=== PATIENT | female | born 1940 | race Caucasian/White ===

== ENCOUNTER 2017-09-26 08:37 | Observation (INO) ==
[2017-09-26] MEDS ORDERED: SALINE FLUSH 10ml SYRINGE IVF PRN (08:53)
--- OUTSIDE RECORDS SUMMARY | 2017-09-26 09:03 | External Medical Summary | Referral Summary ---
:1940 Author Organization Via ALEJANDRA Diallo [facility] Address [address] [place] [address] YES[place]man [address] Care Team Providers Name Role Phone Doni Baltazar Primary Care Physician Encounter VC Date(s): 01/16/15 - 01/16/15 Via ALEJANDRA Diallo [address] [place] [phone] [place] Discharge Disposition: 01-Home or Self Care Attending Physician: Doni Baltazar MD Admitting Physician: Doni Baltazar MD Vital Signs Most recent to oldest [Reference Range]: 1 Blood Pressure [90-140/60-90 mmHg] 160/70 mmHg *HI* (01/16/15 8:30 AM) Problem List Condition Effective Dates Status Health Status Informant Hyperlipidemia(Confirmed) Active Hypertension(Confirmed) Active Menopausal symptoms(Confirmed) Active Neuropathy(Confirmed) Active Obesity(Confirmed) Active patient Allergies, Adverse Reactions, Alerts Substance Reaction Severity Status ammoniated mercury topical Active penicillin Unknown Active sulfanilamide topical Unknown Active Medications aspirin 81 mg, Oral, Daily, 0 Refill(s) Start Date: 01/15/14 Status: Orderedatenolol 25 mg oral tablet 25 mg 1 tabs, Oral, Daily, X 90 days, # 90 tabs, 3 Refill(s), Pharmacy: [facility], 1 tabs Oral Daily,x90 days Start Date: 01/16/15 Stop Date: 01/11/16 Status: OrderedCalcium 600+D 1 tabs, Oral, Daily, 0 Refill(s) Start Date: 01/15/14 Status: Orderedcranberry 1 tabs, Oral, Daily, 0 Refill(s) Start Date: 01/15/14 Status: Orderedestradiol 0.5 mg oral tablet 1 tabs, Oral, Daily, 0 Refill(s) Start Date: 01/15/14 Status: OrderedFish Oil 1000 mg oral capsule 1 caps, Oral, Daily, 0 Refill(s) Start Date: 01/15/14 Status: OrderedVitamin B-12 100 mcg, Oral, Daily, 0 Refill(s) Start Date: 01/15/14 Status: OrderedZocor 20 mg oral tablet 20 mg 1 tabs, Oral, Bedtime (once a day), X 90 days, # 90 tabs, 3 Refill(s), Pharmacy: [facility], 1 tabs Oral Bedtime (once a day),x90 days Start Date: 01/16/15 Stop Date: 01/11/16 Status: Ordered Results Hematology Most recent to oldest [Reference Range]: 1 WBC [4.8-10.8 10*3/uL] 6.4 10*3/uL (01/16/15 9:08 AM) RBC [4.00-5.20 10*6/uL] 4.30 10*6/uL (01/16/15 9:08 AM) Hgb [12.0-16.0 gm/dL] 12.5 gm/dL (01/16/15 9:08 AM) Hct [37.0-47.0 %] 37.5 % (01/16/15 9:08 AM) MCV [82.0-99.0 fL] 87.2 fL (01/16/15 9:08 AM) MCH [27.0-32.0 pg] 29.1 pg (01/16/15 9:08 AM) MCHC [32.0-36.0 gm/dL] 33.3 gm/dL (01/16/15 9:08 AM) RDW [11.5-14.5 %] 13.7 % (01/16/15 9:08 AM) Platelet [150-400 10*3/uL] 250 10*3/uL (01/16/15 9:08 AM) MPV [8.8-14.8 fL] 10.6 fL (01/16/15 9:08 AM) Immature Granulocytes [0.0-1.0 %] 0.2 % (01/16/15 9:08 AM) Neutrophils [51-75 %] 56 % (01/16/15 9:08 AM) Lymphocytes [20-46 %] 31 % (01/16/15 9:08 AM) Monocytes [4-11 %] 9 % (01/16/15 9:08 AM) Eosinophils [0-4 %] 3 % (01/16/15 9:08 AM) Basophils [0-2 %] 1 % (01/16/15 9:08 AM) Neutro Absolute [1.90-7.00 10*3] 3.57 10*3 (01/16/15 9:08 AM) Lymph Absolute [0.80-3.30 10*3] 2.00 10*3 (01/16/15 9:08 AM) [place] Absolute [0.30-1.00 10*3] 0.59 10*3 (01/16/15 9:08 AM) Eos Absolute [0.00-0.50 10*3] 0.17 10*3 (01/16/15 9:08 AM) Baso Absolute [0.00-0.20 10*3] 0.03 10*3 (01/16/15 9:08 AM) Chemistry Most recent to oldest [Reference Range]: 1 Sodium Lvl [135-144 mEq/L] 140 mEq/L (01/16/15 9:08 AM) Potassium Lvl [3.5-5.2 mEq/L] 4.5 mEq/L (01/16/15 9:08 AM) Chloride [99-111 mEq/L] 107 mEq/L (01/16/15 9:08 AM) CO2 [22-31 mEq/L] 26 mEq/L (01/16/15 9:08 AM) AGAP [3-20] 7 (01/16/15 9:08 AM) BUN [10-20 mg/dL] 15 mg/dL (01/16/15 9:08 AM) Glucose Lvl [70-99 mg/dL] 99 mg/dL (01/16/15 9:08 AM) Creatinine Lvl [0.57-1.11 mg/dL] 0.95 mg/dL (01/16/15 9:08 AM) eGFR [>60 mL/min] 57 mL/min 1 *ABN* (01/16/15 9:08 AM) Calcium Lvl [8.9-10.5 mg/dL] 9.4 mg/dL (01/16/15 9:08 AM) Albumin Lvl [3.4-4.8 gm/dL] 4.0 gm/dL (01/16/15 9:08 AM) Total Protein [6.2-8.1 gm/dL] 6.9 gm/dL (01/16/15 9:08 AM) Globulin [1.8-4.0 gm/dL] 2.9 gm/dL (01/16/15 9:08 AM) ALT [0-55 U/L] 28 U/L (01/16/15 9:08 AM) AST [5-34 U/L] 21 U/L (01/16/15 9:08 AM) Alk Phos [40-150 U/L] 115 U/L (01/16/15 9:08 AM) Bili Total [0.2-1.2 mg/dL] 0.5 mg/dL (01/16/15 9:08 AM) Chol [0-199 mg/dL] 150 mg/dL (01/16/15 9:08 AM) Trig [0-149 mg/dL] 166 mg/dL *HI* (01/16/15 9:08 AM) HDL [40-84 mg/dL] 48 mg/dL (01/16/15 9:08 AM) LDL [0-130 mg/dL] 69 mg/dL (01/16/15 9:08 AM) VLDL Cholesterol [0-28 mg/dL] 33 mg/dL *HI* (01/16/15 9:08 AM) Cardiac Risk [0.0-5.0] 3.1 (01/16/15 9:08 AM) 1Result Comment: Multiply eGFR results by 1.21 for race. Immunizations Vaccine Date Refusal Reason hepatitis B pediatric vaccine 04/22/05 hepatitis B vaccine 11/24/04 pneumococcal 23-polyvalent vaccine 03/21/10 tetanus-diphth toxoids (Td) adult/adol 11/25/07 zoster vaccine live 04/25/09 Procedures Procedure Date Related Diagnosis Body Site Colonoscopy Hysterectomy Tonsillectomy Social History Social History Type Response Smoking Status Never smoker Assessment and Plan Extracted from: Title: Ambulatory Patient Education Author: Doni Baltazar MD Date: Family Medicine Cholesterol Cholesterol is a white, waxy, fat-like protein needed by your body in small amounts. The liver makes all the cholesterol you need. Cholesterol is carried from the liver by the blood through the blood ve ssels. Deposits of cholesterol (plaque) may build up on blood vessel breen. These make the arteries narrower and stiffer. Cholesterol plaques increase the risk for heart attack and stroke. You cannot feel your cholesterol level even if it is very high. The only way to know it is high is with a blood test. Once you know your cholesterol levels, you should keep a record of the test results. Work with your health care provider to keep your levels in the desired range. WHAT DO THE RESULTS MEAN? Total cholesterol is a rough measure of all the cholesterol in your blood. LDL is the so-called bad cholesterol. This is the type that deposits cholesterol in the breen of the arteries. You want this level to be low. HDL is the good cholesterol because it cleans the arteries and carries the LDL away. You want this level to be high. Triglycerides are fat that the body can either burn for energy or store. High levels are closely linked to heart disease. WHAT ARE THE DESIRED LEVELS OF CHOLESTEROL? Total cholesterol below 200. LDL below 100 for people at risk, below 70 for those at very high risk. HDL above 50 is good, above 60 is best. Triglycerides below 150. HOW CAN I LOWER MY CHOLESTEROL? Diet. Follow your diet programs as directed by your health care provider. Choose fish or white meat chicken and turkey, roasted or baked. Limit fatty cuts of red meat, fried foods, and processed meats, such as sausage and lunch meats. Eat lots of fresh fruits and vegetables. Choose whole grains, beans, pasta, potatoes, and cereals. Use only small amounts of olive, corn, or canola oils. Avoid butter, mayonnaise, shortening, or palm kernel oils. Avoid foods with trans fats. Drink skim or nonfat milk and eat low-fat or nonfat yogurt and cheeses. Avoid whole milk, cream, ice cream, egg yolks, and full-fat cheeses. Healthy desserts include yobany food cake, reese snaps, animal crackers, hard candy, popsicles, and low-fat or nonfat frozen yogurt. Avoid pastries, cakes, pies, and cookies. Exercise. Follow your exercise programs as directed by your health care provider. A regular program helps decrease LDL and raise HDL. A regular program helps with weight control. Do things that increase your activity level like gardening, walking, or taking the stairs. Ask your health care provider about how you can be more active in your daily life. Medicine. Take medicine as directed by your health care provider. Medicine may be prescribed by your health care provider to help lower cholesterol and decrease the risk for heart disease. If you have several risk factors, you may need medicine even if your levels are normal. Document Released: 03/02/2002 Document Revised: 06/12/2014 Document Reviewed: 03/21/2014 ExitCare Patient Information 2015 [employer]. This information is not intended to replace advice given to you by your health care provider. Make sure you discuss any questions you have with your health care provider. No follow up information was provided. Extracted from: Title: Office Visit Note Author: Doni Baltazar MD Date: 01/16/15 Assessment/Plan High blood cholesterol This issue is stable and appropriate refills, lab, and f/u have been discussed. Ordered: CBC w/ Differential Comprehensive Metabolic Panel Lipid Panel Hypertension This issue is stable and appropriate refills, lab, and f/u have been discussed. The patient reports their blood pressure has been stable at home and is not having any significant or related problems. There has been no chest pain, chest pressure, soa/burch. Insists bp is stable at home. BP journal from the [employer] isnormal. Medication refilled for one year as a courtesy. She will need appointments for any further requests. Menopausal symptoms This issue is stable and appropriate refills, lab, and f/ u have been discussed. Seeing Associate Principal for estradiol. Neuropathy This issue is stable and appropriate refills, lab, and f/u have been discussed. Meds offered and declined. The patient has family members present who are agreeable with today's plan and have no additional concerns or requests. Orders: atenolol, 25 mg 1 tabs, Oral, Daily, X 90 days, # 90 tabs, 3 Refill(s ), Pharmacy: [facility], 1 tabs Oral Daily,x90 days simvastatin, 20 mg 1 tabs, Oral, Bedtime (once a day), X 90 days, # 90 tabs, 3 Refill(s), Pharmacy: [facility], 1 tabs Oral Bedtime (once a day),x90 days
--- OUTSIDE RECORDS SUMMARY | 2017-09-26 09:03 | External Medical Summary | Referral Summary ---
:1940 Author Organization Via ALEJANDRA Diallo [facility] Address [address] [place] [address] [place] [phone] Care Team Providers Name Role Phone Doni Baltazar Primary Care Physician Encounter VC Date(s): 01/16/15 - 01/16/15 Via ALEJANDRA Diallo [address] [place] [phone] [place] Discharge Disposition: [...] days, # 90 tabs, 3 Refill(s), Pharmacy: [facility], 1 tabs Oral Daily,x90 days Start [...] days, # 90 tabs, 3 Refill(s), Pharmacy: [facility], 1 tabs Oral Bedtime (once a [...] [0.80-3.30 10*3] 2.00 10*3 (01/16/15 9:08 AM) [place] Absolute [0.30-1.00 10*3] 0.59 10*3 (01/16/15 9:08 [...] Document Reviewed: 03/21/2014 ExitCare Patient Information 2015 [employer]in ([employer]). This information is not intended to replace [...] stable at home. BP journal from the [employer] isnormal. Medication refilled for one year as a courtesy. She will need appointments for any further requests. Menopausal symptoms This issue is stable and appropriate refills, lab, and f/ u have been discussed. Seeing Breaker Unit Assembler for estradiol. Neuropathy This issue is stable and appropriate refills, lab, and f/u have been discussed. Meds offered and declined. The patient has family members present who are agreeable with today's plan and have no additional concerns or requests. Orders: atenolol, 25 mg 1 tabs, Oral, Daily, X 90 days, # 90 tabs, 3 Refill(s ), Pharmacy: [facility], 1 tabs Oral Daily,x90 days simvastatin, 20 mg 1 tabs, Oral, Bedtime (once a day), X 90 days, # 90 tabs, 3 Refill(s), Pharmacy: [facility], 1 tabs Oral Bedtime (once a day),x90 days
--- OUTSIDE RECORDS SUMMARY | 2017-09-26 09:03 | External Medical Summary | Summary of Care ---
:1940 Author Name Zoran Douglass M.D. Address [address] [place] [address] [place] [address] Care Team Providers Name Role Phone Zoran Douglass M.D. Unavailable Unavailable Doni Baltazar Unavailable Unavailable Unavailable Unavailable Unavailable Functional Status Functional Status Health Issues Name Dates Details Functional status health issues are not documented Status: Cognitive Status Health Issues Name Dates Details Cognitive status health issues are not documented Status: Problems Name Dates Details Prophylactic antibiotic (V58.62, Z79.2) Status: Active History of Meatal stenosis (598.9, N35.9) Status: Resolved Vaginal yeast infection (112.1, B37.3) Status: Active Microhematuria (599.72, R31.29) Status: Active History of recurrent urinary tract infection (V13.02, Z87.440) Status: Resolved Incomplete bladder emptying (788.21, R33.9) Status: Active Medications Name Dates Details Aspirin EC 81 MG Oral Tablet Delayed Release Refills: 0 Active Calcium + D 600-200 MG-UNIT TABS Refills: 0 Active Estradiol 0.5 MG Oral Tablet Refills: 0 Active Atenolol 25 MG Oral Tablet Refills: 0 Active Zocor 20 MG Oral Tablet Refills: 0 Active Cephalexin 250 MG Oral Capsule TAKE 1 CAPSULE Bedtime Quantity: 90 Refills: 3 Cho Zoran Pierson 16-Oct-2015 Active Restasis 0.05 % Ophthalmic Emulsion USE DIRECTED. Refills: 0 Zoran Douglass M.D. 29-Jul-2016 Active Allergies and Adverse Reactions Name Dates Details Cipro (Allergy) Status: Active Mercury Ammoniated POWD (Allergy) Status: Active Penicillins (Allergy) Status: Active Sulfa Drugs (Allergy) Status: Active Past Medical History Name Dates Details History of hyperlipidemia (V12.29, Z86.39) Status: Resolved History of hypertension (V12.59, Z86.79) Status: Resolved History of Meatal stenosis (598.9, N35.9) Status: Resolved History of neuropathy (V12.49, Z86.69) Status: Resolved History of recurrent urinary tract infection (V13.02, Z87.440) Status: Resolved Procedures Procedure Dates Details History of Tonsillectomy History of Total Abdominal Hysterectomy With Removal Of Both Ovaries Procedures not documented Immunization Name Dates Details Immunizations not documented Family History Mother Name Dates Details Family history of hypertension (V17.49, Z82.49) Status: Active Family history of cerebrovascular accident (CVA) (V17.1, Z82.3) Status: Active Father Name Dates Details Family history of CAD (coronary artery disease) (414.00, I25.10) Status: Active Family history of diabetes mellitus (V18.0, Z83.3) Status: Active Family history of hypertension (V17.49, Z82.49) Status: Active Family history of myocardial infarction (V17.3, Z82.49) Status: Active Brother Name Dates Details Family history of Colon cancer (153.9, C18.9) Status: Active Social History Name Dates Details - Status: Smoking Status Name Dates Details Former smoker Vital Signs Date Test Result Details No Known Vitals to report Results Date Description Value Details Results not documented Plan of Care Name Dates Details Planned Observations Planned Goals not documented Planned Encounters Appointment; Provider: Zoran Douglass M.D. On 30-Jul-2017 10:00 Instructions Name Dates Details Instructions not documented Encounters Appointment; Zoran Douglass M.D. On 29-Jan-2016 Encounter Diagnosis: Problem not documented 10:00 Appointment; Zoran Douglass M.D. On 16-Oct-2015 Encounter Diagnosis: Problem not documented 15:00 Appointment; Zoran Douglass M.D. On 07-Oct-2015 Encounter Diagnosis: Problem not documented 10:45 Appointment; Zoran Douglass M.D. On 18-Sep-2015 Encounter Diagnosis: Problem not documented 14:30 Appointment; Zoran Douglass M.D. On 14-Aug-2015 Encounter Diagnosis: Problem not documented 13:45 Appointment; Zoran Douglass M.D. On 22-Jul-2015 Encounter Diagnosis: Problem not documented 15:00 Appointment; Zoran Douglass M.D. On 12-Jun-2015 Encounter Diagnosis: Problem not documented 11:00 Appointment; Zoran Douglass M.D. On 22-May-2015 Encounter Diagnosis: Problem not documented 13:15
--- OUTSIDE RECORDS SUMMARY | 2017-09-26 09:03 | External Medical Summary | Summary of Care ---
:1940 Author Name Zoran Douglass M.D. Address [address] [place] [address] [place] [address] Care Team Providers Name Role Phone Doni Baltazar Primary Care Provider Unavailable Unavailable Unavailable Unavailable Functional Status Functional Status Health Issues Name Dates Details Functional status health issues are not documented Status: Cognitive Status Health Issues Name Dates Details Cognitive status health issues are not documented Status: Problems Name Dates Details Dysuria (788.1, R30.0) Status: Active Prophylactic antibiotic (V58.62, Z79.2) Status: Active History of Meatal stenosis (598.9, N35.9) Status: Resolved Vaginal yeast infection (112.1, B37.3) Status: Active Bladder pain (788.99, R39.89) Status: Active History of urinary tract infection (V13.02, Z87.440) Status: Resolved Microhematuria (599.72, R31.2) Status: Active Incomplete bladder emptying (788.21, R33.9) Status: Active Medications Name Dates Details Aspirin EC 81 MG Oral Tablet Delayed Release Refills: 0 ActiveCalcium + D 600-200 MG-UNIT TABS Refills: 0 ActiveFish Oil 1000 MG Oral Capsule Refills: 0 ActiveEstradiol 0.5 MG Oral Tablet Refills: 0 ActiveAtenolol 25 MG Oral Tablet Refills: 0 ActiveCranberry 500 MG Oral Capsule Refills: 0 ActiveVitamin B-12 100 MCG Oral Tablet Refills: 0 ActiveZocor 20 MG Oral Tablet Refills: 0 Active Allergies and Adverse Reactions Name Dates Details Cipro Status: Active Mercury Ammoniated POWD Status: Active Penicillins Status: Active Sulfa Drugs Status: Active Past Medical History Name Dates Details History of hyperlipidemia (V12.29, Z86.39) Status: Resolved History of hypertension (V12.59, Z86.79) Status: Resolved History of Meatal stenosis (598.9, N35.9) Status: Resolved History of neuropathy (V12.49, Z86.69) Status: Resolved History of urinary tract infection (V13.02, Z87.440) Status: Resolved [...] Status: Active Social History Name Dates Details Smoking StatusFormer smoker Vital Signs Date Test Result Details 18-Sep-2015 14:23 BP Systolic 146 mm[Hg] Status: BP Diastolic 78 mm[Hg] Status: Heart Rate 68 /min Status: Height 61 in Status: Weight 160 lb Status: Body Mass Index Calculated 30.23 kg/m2 Status: Body Surface Area Calculated 1.72 m2 Status: Results Date Description Value Details Results not documented Plan of Care Planned Observations Name Dates Details Planned Goals not documented Goal Instructions Instructions not documented Encounters Appointment; Zoran Douglass On 18-Sep-2015 Encounter Diagnosis: Problem not documented 14:30 Appointment; Zoran Douglass On 14-Aug-2015 Encounter Diagnosis: Problem not documented 13:45 Appointment; Zoran Douglass On 22-Jul-2015 Encounter Diagnosis: Problem not documented 15:00 Appointment; Zoran Douglass On 12-Jun-2015 Encounter Diagnosis: Problem not documented 11:00 Appointment; Zoran Douglass On 22-May-2015 Encounter Diagnosis: Problem not documented 13:15
--- OUTSIDE RECORDS SUMMARY | 2017-09-26 09:03 | External Medical Summary | Referral Summary ---
:1940 Author Organization Via ALEJANDRA Diallo [facility] Address [address] [place] [address] [place] [address] Care Team Providers Name Role Phone Doni Baltazar Primary Care Physician Encounter VC Date(s): 01/16/15 - 01/16/15 [facility] ALEJANDRA Diallo [address] [place] [phone] [place] Discharge Disposition: [...] # 90 tabs, 3 Refill(s), Pharmacy: [facility], 1 tabs Oral Daily,x90 days Start [...] days, # 90 tabs, 3 Refill(s), Pharmacy: [facility], 1 tabs Oral Bedtime (once a day),x90 [...] [0.80-3.30 10*3] 2.00 10*3 (01/16/15 9:08 AM) [place] Absolute [0.30-1.00 10*3] 0.59 10*3 (01/16/15 9:08 [...] Document Reviewed: 03/21/2014 ExitCare Patient Information 2015 [employer]y. This information is not intended to replace [...] stable at home. BP journal from the [employer] isnormal. Medication refilled for one year as a courtesy. She will need appointments for any further requests. Menopausal symptoms This issue is stable and appropriate refills, lab, and f/ u have been discussed. Seeing Bioinformatics Scientist for estradiol. Neuropathy This issue is stable and appropriate refills, lab, and f/u have been discussed. Meds offered and declined. The patient has family members present who are agreeable with today's plan and have no additional concerns or requests. Orders: atenolol, 25 mg 1 tabs, Oral, Daily, X 90 days, # 90 tabs, 3 Refill(s ), Pharmacy: [facility], 1 tabs Oral Daily,x90 days simvastatin, 20 mg 1 tabs, Oral, Bedtime (once a day), X 90 days, # 90 tabs, 3 Refill(s), Pharmacy: [facility], 1 tabs Oral Bedtime (once a day),x90 days
--- OUTSIDE RECORDS SUMMARY | 2017-09-26 09:03 | External Medical Summary | Referral Summary ---
:1940 Author Organization Via ALEJANDRA Diallo [place] [facility] Address [address] [place] [address] [place] [address] Care Team Providers Name Role Phone Doni Baltazar Primary Care Physician Encounter VC Date(s): 01/16/15 - 01/16/15 Via ALEJANDRA Diallo [address] [place] [phone] [place] Discharge Disposition: [...] days, # 90 tabs, 3 Refill(s), Pharmacy: [facility], 1 tabs Oral Daily,x90 [...] days, # 90 tabs, 3 Refill(s), Pharmacy: [facility], 1 tabs Oral Bedtime (once a [...] [0.80-3.30 10*3] 2.00 10*3 (01/16/15 9:08 AM) [place] Absolute [0.30-1.00 10*3] 0.59 10*3 (01/16/15 9:08 [...] Document Reviewed: 03/21/2014 ExitCare Patient Information 2015 [employer]. This information is not intended to replace [...] stable at home. BP journal from the [employer] isnormal. Medication refilled for one year as a courtesy. She will need appointments for any further requests. Menopausal symptoms This issue is stable and appropriate refills, lab, and f/ u have been discussed. Seeing Draw Machine Operator for estradiol. Neuropathy This issue is stable and appropriate refills, lab, and f/u have been discussed. Meds offered and declined. The patient has family members present who are agreeable with today's plan and have no additional concerns or requests. Orders: atenolol, 25 mg 1 tabs, Oral, Daily, X 90 days, # 90 tabs, 3 Refill(s ), Pharmacy: [facility], 1 tabs Oral Daily,x90 days simvastatin, 20 mg 1 tabs, Oral, Bedtime (once a day), X 90 days, # 90 tabs, 3 Refill(s), Pharmacy: [facility], 1 tabs Oral Bedtime (once a day),x90 days
--- OUTSIDE RECORDS SUMMARY | 2017-09-26 09:03 | External Medical Summary | Summary of Care ---
:1940 Author Name Zoran Douglass M.D. Address [address] [place] [address] [place] [address] Care Team Providers Name Role Phone Doni [...] Active Bladder pain (788.99, R39.89) Status: Active Incomplete bladder emptying (788.21, R33.9) Status: Active History of urinary tract infection (V13.02, Z87.440) Status: Resolved Microhematuria (599.72, R31.2) Status: Active Medications Name Dates Details Aspirin [...] smoker Vital Signs Date Test Result Details 14-Aug-2015 13:41 BP Systolic 155 mm[Hg] Status: BP Diastolic 74 mm[Hg] Status: Heart Rate 63 /min Status: 22-Jul-2015 14:38 BP Systolic 169 mm[Hg] Status: BP Diastolic 89 mm[Hg] Status: Heart Rate 77 /min Status: Height 61 in Status: Weight 160 lb Status: Body Mass Index Calculated 30.23 kg/m2 Status: Body Surface Area Calculated 1.72 m2 Status: Results Date Description Value Details 24-Jul-2015 16:15 URINE CULTURE [id number] Comments: [facility] performed at: [facility], [address] [place] [address], [address], Printed Circuit Board Designer: Zoran Bear D.O., MPHQuest Collection Date/Time: [id number] Results Received Date/Time: [id number] Reported Date/Time: [id number] performed at: [facility], [place], [address], Printed Circuit Board Designer: Zoran Bear D.O., MPHQuest Collection Date/Time: [id number] Results Received Date/Time: [id number] Reported Date/Time: CULTURE, URINE, ROUTINE SEE NOTE Comments: CULTURE, URINE, ROUTINE MICRO NUMBER: [id number] TEST STATUS: FINAL SPECIMEN SOURCE: CLEAN CATCH SPECIMEN QUALITY: ADEQUATE RESULT: Greater than 100,000 CFU/ mL of Klebsiel (Abnormal) la pneumoniae K.pneumoniae INT JENNA AMOX/ CLAVULANATE S <=2 AMPICILLIN R AMP/WILLS LBACTAM S <=2 CEFAZOLIN NR <=4 1 CEFEPIME S <=1 CEFTRIAXONE S <=1 CIPROFLOXACIN S <=0.25 ERTAPENEM S <=0.5 GENTAMICIN S <=1 IMIPENEM S <=0.25 LEVOFLOXACIN S <=0.12 NITROFURANTOIN I 64 PIP/TAZOBACTAM S <=4 TOBRAMYCIN S <=1 TRIMETHOPRIM/ SULFA S <=20S=Susceptible I=Intermediate R=Resistant *=Not TestedNR=Not Reported NN=See Therapy CommentsTHERAPY COM MENTS Note 1: ORAL therapy: A cefazolin JENNA of < 32 predicts susceptibility to the oral agents cefaclor, cefdinir, cefpodoxime, cefprozil , cefuroxime, cephalexin, and loracarbef when u sed for therapy of uncomplicated UTIs due to E. coli, K. pneumoniae , and P. mirabilis. PARENTERAL therapy: A cefazolin JENNA of > 8 indicates resistance to parenteral cefazolin. An alter mela test method must be performed to to confirm susceptibility to parenteral cefazolin.[KS]----- Plan of Care Planned Observations Name Dates Details Planned Goals not documented Goal Planned Encounters Appointment; Provider: Zoran Douglass On 18-Sep-2015 14:30 Instructions Instructions not documented Encounters Appointment; Zoran Douglass On 14-Aug-2015 Encounter Diagnosis: Problem not documented 13:45 Appointment; Zoran Douglass On 22-Jul-2015 Encounter Diagnosis: Problem not documented 15:00 Appointment; Zoran Douglass On 12-Jun-2015 Encounter Diagnosis: Problem not documented 11:00 Appointment; Zoran Douglass On 22-May-2015 Encounter Diagnosis: Problem not documented 13:15
--- OUTSIDE RECORDS SUMMARY | 2017-09-26 09:03 | External Medical Summary | Referral Summary ---
:1940 Author Organization [facility] Ot[facility] Address [address] [place] [address] Care Team Providers Name Role Phone Doni Baltazar Primary Care Physician Encounter VC Date(s): 11/08/14 - 11/08/14 [facility] [address] [place] [address]- [place] Discharge Diagnosis: GERD (gastroesophageal reflux disease) Discharge Disposition: -Home or Self Care Attending Physician: Hannah Andino DO Admitting Physician: Hannah Andino DO Referring Physician: Doni Baltazar MD Vital Signs No data available for this section Problem List Condition Effective Dates Status Health [...] days, # 90 tabs, 3 Refill(s), Pharmacy: [facility], 1 tabs Oral Daily,x90 days Start Date: [...] days, # 90 tabs, 3 Refill(s), Pharmacy: [facility], 1 tabs Oral Bedtime (once a day),x90 days Start Date: 01/16/15 Stop Date: 01/11/16 Status: Ordered Results No data available for this section Immunizations Vaccine Date Refusal Reason hepatitis B pediatric vaccine 04/22/05 hepatitis B vaccine 11/24/04 pneumococcal 23-polyvalent vaccine 03/21/10 tetanus-diphth toxoids (Td) adult/adol 11/25/07 zoster vaccine live 04/25/09 Procedures Procedure Date Related Diagnosis Body Site Laryngoscopy, flexible fiberoptic; diagnostic 11/08/14 Colonoscopy Hysterectomy Tonsillectomy Social History Social History Type Response Smoking Status Never smoker Assessment and Plan Extracted from: Title: Ambulatory Patient Education Author: Hannah Andino DO Date: Family Medicine Diet for Gastroesophageal Reflux Disease, Adult Reflux (acid reflux ) is when acid from your stomach flows up into the esophagus. When acid comes in contact with the esophagus, the acid causes irritation and soreness (inflammation ) in the esophagus. When reflux happens often or so severely that it causes damage to the esophagus, it is called gastroesophageal reflux disease (GERD). Nutrition therapy can help ease the discomfort of GERD. FOODS OR DRINKS TO AVOID OR LIMIT Smoking or chewing tobacco. Nicotine is one of the most potent stimulants to acid production in the gastrointestinal tract. Caffeinated and decaffeinated coffee and black tea. Regular or low-calorie carbonated beverages or energy drinks (caffeine- free carbonated beverages are allowed). Strong spices, such as black pepper, white pepper, red pepper, cayenne, thomas powder, and chili powder. Peppermint or spearmint. Chocolate. High-fat foods, including meats and fried foods. Extra added fats including oils, butter, salad dressings, and nuts. Limit these to less than 8 tsp per day. Fruits and vegetables if they are not tolerated, such as citrus fruits or tomatoes. Alcohol. Any food that seems to aggravate your condition. If you have questions regarding your diet, call your caregiver or a registered dietitian. OTHER THINGS THAT MAY HELP GERD INCLUDE: Eating your meals slowly, in a relaxed setting. Eating 5 to 6 small meals per day instead of 3 large meals. Eliminating food for a period of time if it causes distress. Not lying down until 3 hours after eating a meal. Keeping the head of your bed raised 6 to 9 inches (15 to 23 cm) by using a foam wedge or blocks under the legs of the bed. Lying flat may make symptoms worse. Being physically active. Weight loss may be helpful in reducing reflux in overweight or obese adults. Wear loose fitting clothing EXAMPLE MEAL PLAN This meal plan is approximately 2,000 calories based on [employer].gov meal planning guidelines. Breakfast cup cooked oatmeal. 1 cup strawberries. 1 cup low-fat milk. 1 oz almonds. Snack 1 cup cucumber slices. 6 oz yogurt (made from low-fat or fat-free milk). Lunch 2 slice whole-wheat bread. 2 oz sliced turkey. 2 tsp mayonnaise. 1 cup blueberries. 1 cup snap peas. Snack 6 whole-wheat crackers. 1 oz string cheese. Dinner cup brown rice. 1 cup mixed veggies. 1 tsp olive oil. 3 oz grilled fish. Document Released: 06/07/2006 Document Revised: 08/29/2012 Document Reviewed: 04/22/2012 [facility] Patient Information [address] [place], [place] [address]. No follow up information was provided. Extracted from: Title: Office Visit Note Author: Hannah Andino DO Date: 11/08/14 Assessment/Plan GERD (gastroesophageal reflux disease) TUMS as needed May start Omeprazole if needed but she prefers to stay off skilled nursing medications at this point as it is not extremely bothersome to her
--- OUTSIDE RECORDS SUMMARY | 2017-09-26 09:03 | External Medical Summary | Referral Summary ---
:1940 Author Organization [facility] Address [address] [place] [address] [place] [address] Care Team Providers Name Role Phone Doni Baltazar Primary Care Physician Encounter VC Date(s): 01/16/15 - 01/16/15 [facility] [place] [address] Discharge Disposition: [...] days, # 90 tabs, 3 Refill(s), Pharmacy: [facility], 1 tabs Oral Daily,x90 [...] days, # 90 tabs, 3 Refill(s), Pharmacy: [facility], 1 tabs Oral Bedtime (once a [...] [0.80-3.30 10*3] 2.00 10*3 (01/16/15 9:08 AM) [facility] [0.30-1.00 10*3] 0.59 10*3 (01/16/15 9:08 [...] Document Reviewed: 03/21/2014 ExitCare Patient Information 2015 [employer]. This information is not intended to replace [...] stable at home. BP journal from the [employer] isnormal. Medication refilled for one year as a courtesy. She will need appointments for any further requests. Menopausal symptoms This issue is stable and appropriate refills, lab, and f/ u have been discussed. Seeing [facility] for estradiol. Neuropathy This issue is stable and appropriate refills, lab, and f/u have been discussed. Meds offered and declined. The patient has family members present who are agreeable with today's plan and have no additional concerns or requests. Orders: atenolol, 25 mg 1 tabs, Oral, Daily, X 90 days, # 90 tabs, 3 Refill(s ), Pharmacy: [facility], 1 tabs Oral Daily,x90 days simvastatin, 20 mg 1 tabs, Oral, Bedtime (once a day), X 90 days, # 90 tabs, 3 Refill(s), Pharmacy: [facility], 1 tabs Oral Bedtime (once a day),x90 days
--- OUTSIDE RECORDS SUMMARY | 2017-09-26 09:03 | External Medical Summary | Referral Summary ---
:1940 Author Organization [facility] Address [address] [place] [address] Care Team Providers Name Role Phone Doni Baltazar Primary Care Physician Encounter VC Date(s): 11/08/14 - 11/08/14 [facility] [address] [place] [address]- [place] Discharge Diagnosis: GERD (gastroesophageal [...] days, # 90 tabs, 3 Refill(s), Pharmacy: [facility], 1 tabs Oral Daily,x90 days Start [...] days, # 90 tabs, 3 Refill(s), Pharmacy: [facility], 1 tabs Oral Bedtime (once [...] plan is approximately 2,000 calories based on 422 [employer]ate.gov meal planning guidelines. Breakfast cup cooked oatmeal. [...] 06/07/2006 Document Revised: 08/29/2012 Document Reviewed: 04/22/2012 [facility] Patient Information [address] [place], [place] [address]. No follow up information was provided. Extracted from: Title: Office Visit Note Author: Hannah Andino DO Date: 11/08/14 Assessment/Plan GERD (gastroesophageal reflux disease) TUMS as needed May start Omeprazole if needed but she prefers to stay off fpc medications at this point as it is not extremely bothersome to her
--- OUTSIDE RECORDS SUMMARY | 2017-09-26 09:04 | External Medical Summary | Summary of Care ---
:1940 Author Name Zoran Douglass M.D. Address [address] [place] [address] [place] [address] Care Team Providers Name Role Phone Doni Baltazar Primary Care Provider Unavailable Unavailable Unavailable Unavailable Functional Status Functional Status Health Issues Name Dates Details Functional status health issues are not documented Status: Cognitive Status Health Issues Name Dates Details Cognitive status health issues are not documented Status: Problems Name Dates Details Dysuria (788.1, R30.0) Status: Active Bladder pain (788.99, R39.89) Status: Active Meatal stenosis (598.9, N35.9) Status: Active Incomplete bladder emptying (788.21, R33.9) [...] Ammoniated POWD Status: Active Penicillins Status: Active Past Medical History Name Dates Details History of hyperlipidemia (V12.29, Z86.39) Status: Resolved History of hypertension (V12.59, Z86.79) Status: Resolved History of neuropathy (V12.49, Z86.69) Status: Resolved Procedures Procedure Dates Details History of Tonsillectomy History of Total Abdominal Hysterectomy With Removal Of Both Ovaries URINE CULTURE [id number] Ordered:22-May-2015 Immunization Name Dates Details Immunizations not documented [...] smoker Vital Signs Date Test Result Details 22-May-2015 11:20 BP Systolic 138 mm[Hg] Status: BP Diastolic 81 mm[Hg] Status: Heart Rate 80 /min Status: Height 60 in Status: Weight 160 lb Status: Body Mass Index Calculated 31.25 kg/m2 Status: Body Surface Area Calculated 1.7 m2 Status: Results Date Description Value Details Results not documented Plan of Care Planned Observations Name Dates Details Planned Goals not documented Goal Instructions Instructions not documented Encounters Appointment; Zoran Douglass On 22-May-2015 Encounter Diagnosis: Problem not documented 13:15
--- OUTSIDE RECORDS SUMMARY | 2017-09-26 09:04 | External Medical Summary | Summary of Care ---
:1940 Author Name Zoran Douglass M.D. Address [address] [place] [address] [place] [address] Care Team Providers Name Role Phone Doni Baltazar Primary Care Provider Unavailable Unavailable Unavailable Unavailable Functional Status Functional Status Health Issues Name Dates Details Functional status health issues are not documented Status: Cognitive Status Health Issues Name Dates Details Cognitive status health issues are not documented Status: Problems Name Dates Details Dysuria (788.1, R30.0) Status: Active Bladder pain (788.99, R39.89) Status: Active UTI (urinary tract infection) (599.0, N39.0) Status: Active Meatal stenosis (598.9, N35.9) Status: Active Incomplete bladder emptying (788.21, R33.9) Status: Active Prophylactic antibiotic (V58.62, Z79.2) Status: Active Medications Name Dates Details Aspirin [...] m2 Status: Results Date Description Value Details 25-May-2015 10:20 URINE CULTURE [id number] Comments: [facility] performed at: [facility], [address] [place] [address], [address] [place] [address], Customer Account Specialist: Zoran Bear D.O., MPHQuest Collection Date/Time: [id number] Results Received Date/Time: [id number] Reported Date/Time: [id number] performed at: [facility], [address] [place] [address], [address] [place] [address], Customer Account Specialist: Zoran Bear D.O., MPHQuest Collection Date/Time: [id number] Results Received Date/Time: [id number] Reported Date/Time: [id number] Acce ssion #: [id number] performed at: [facility], [address] [place] [address], [address] [place] [address], Customer Account Specialist: Zoran Bear D.O., MPHQuest Collection Date/Time: [id number] est Results Received Date/Time: [id number] Reported Date/Time: [id number] CULTURE, URINE, ROUTINE SEE NOTE Comments: CULTURE, URINE, ROUTINE MICRO NUMBER: [id number] TEST STATUS: FINAL SPECIMEN SOURCE: URINE , CATHETER SPECIMEN QUALITY: ADEQUATE RESULT: 50,000-100,000 CFU/ mL of Klebsiella (Abnormal) pneumoniae K.pneumoniae INT JENNA AMOX/ CLAVULANATE S <=2 AMPICILLIN R AMP/SULB ACTAM S <=2 CEFAZOLIN NR <=4 1 CEFEPIME S <=1 CEFTRIAXONE S <=1 CIPROFLOXACIN S <=0.25 ERTAPENEM S <=0.5 GENTAMICIN S <=1 IMIPENEM S <=0.25 LEVOFLOXACIN S <=0.12 NITROFURANTOIN S 32 PIP/TAZOBACTAM S <=4 TOBRAMYCIN S <=1 TRIMETHOPRIM/ SULFA S <=20S=Susceptible I=Intermediate R=Resistant *=Not TestedNR=Not Reported NN=See Therapy CommentsTHERAPY COMME NTS Note 1: ORAL therapy: A cefazolin JENNA of < 32 predicts susceptibility to the oral agents cefaclor, cefdinir, cefpodoxime, cefprozil , cefuroxime, cephalexin, and loracarbef when use d for therapy of uncomplicated UTIs due to E. coli, K. pneumoniae, and P. mirabilis. PARENTERAL therapy: A cefazolin JENNA of > 8 indicates resistance to parenteral cefazolin. An alterna te test method must be performed to to confirm susceptibility to parenteral cefazolin.[KS]----- Plan of Care Planned Observations Name Dates Details Planned Goals not documented Goal Instructions Instructions not documented Encounters Appointment; Zoran Douglass On 12-Jun-2015 Encounter Diagnosis: Problem not documented 11:00 Appointment; Zoran Douglass On 22-May-2015 Encounter Diagnosis: Problem not documented 13:15
--- OUTSIDE RECORDS SUMMARY | 2017-09-26 09:04 | External Medical Summary | Summary of Care ---
:1940 Author Name Zoran Douglass M.D. Address [address] [place] [address] [place] [address] Care Team Providers Name Role Phone Doni [...] Vaginal yeast infection (112.1, B37.3) Status: Active UTI (urinary tract infection) (599.0, N39.0) Status: Active Bladder pain (788.99, R39.89) Status: [...] smoker Vital Signs Date Test Result Details 22-Jul-2015 14:38 BP Systolic 169 mm[Hg] Status: BP Diastolic 89 mm[Hg] Status: Heart Rate 77 /min Status: Height 61 in Status: Weight 160 lb Status: Body Mass Index Calculated 30.23 kg/m2 Status: Body Surface Area Calculated 1.72 m2 Status: Results Date Description Value Details 24-Jul-2015 16:15 URINE CULTURE [id number] Comments: [employer] performed at: [facility], [address], Gore Seamer: Zoran Bear D.O., MPHQuest Collection Date/Time: [id number] Results Received Date/Time: [id number] Reported Date/Time: [id number] performed at: [facility], [address] [place] [address], [address], Gore Seamer: Zoran Bear D.O., MPHQuest Collection Date/Time: [id number] Results Received Date/Time: [id number] Reported Date/Time: [id number] CULTURE, URINE, ROUTINE SEE NOTE Comments: CULTURE, URINE, ROUTINE MICRO NUMBER: [id number] TEST STATUS: FINAL SPECIMEN SOURCE: CLEAN CATCH [...] not documented Encounters Appointment; Zoran Douglass On 22-Jul-2015 Encounter Diagnosis: Problem not documented 15:00 Appointment; Zoran Douglass On 12-Jun-2015 Encounter Diagnosis: Problem not documented 11:00 Appointment; Zoran Douglass On 22-May-2015 Encounter Diagnosis: Problem not documented 13:15
--- OUTSIDE RECORDS SUMMARY | 2017-09-26 09:04 | External Medical Summary | Summary of Care ---
:1940 Author Name Zoran Douglass M.D. Address [address] [place] [address] [place] [address] Care Team Providers Name Role Phone Zoran Douglass M.D. Unavailable Unavailable Doni Baltazar Primary Care Provider Unavailable Unavailable [...] Active Bladder pain (788.99, R39.89) Status: Active Microhematuria (599.72, R31.2) Status: Active Incomplete bladder emptying (788.21, R33.9) Status: Active Urinary tract infection (599.0, N39.0) Status: Active Medications Name Dates Details Aspirin [...] ActiveZocor 20 MG Oral Tablet Refills: 0 ActiveCephalexin 250 MG Oral Capsule TAKE 1 CAPSULE Bedtime Quantity: 90 Refills: 3 Zoran Douglass M.D. Started 16-Oct-2015 Active Allergies and Adverse Reactions Name Dates Details Cipro Status: Active Mercury Ammoniated POWD Status: Active Penicillins Status: Active Sulfa Drugs Status: Active Past Medical History Name Dates Details Urinary tract infection (599.0, N39.0) Status: Active History of hyperlipidemia (V12.29, Z86.39) Status: Resolved [...] smoker Vital Signs Date Test Result Details 07-Oct-2015 10:34 BP Systolic 181 mm[Hg] Status: BP Diastolic 78 mm[Hg] Status: Heart Rate 65 /min Status: Height 61 in Status: Weight 160 lb Status: Body Mass Index Calculated 30.23 kg/m2 Status: Body Surface Area Calculated 1.72 m2 Status: 18-Sep-2015 14:23 BP Systolic 146 mm[Hg] Status: BP Diastolic 78 mm[Hg] Status: Heart Rate 68 /min Status: Height 61 in Status: Weight 160 lb Status: Body Mass Index Calculated 30.23 kg/m2 Status: Body Surface Area Calculated 1.72 m2 Status: Results Date Description Value Details 10-Oct-2015 09:17 URINE CULTURE [id number] Comments: [facility] performed at: [place] [facility], [address] [place], [address], Inventory Controller: Zoran Bear D.O., MPHQuest Collection Date/Time: Results Received Date/Time: [id number] Reported Date/Time: [id number] performed at: [facility], [address] [place], [address], Inventory Controller: Zoran Bear D.O., MPHQuest Collection Date/Time: [id number] Results Received Date/Time: Reported Date/Time: CULTURE, URINE, ROUTINE SEE NOTE Comments: CULTURE, URINE, ROUTINE MICRO NUMBER: [id number] TEST STATUS: FINAL SPECIMEN SOURCE: URINE , CLEAN CATCH SPECIMEN QUALITY: ADEQUATE RESULT: Greater than 100, 000 CFU/mL of C (Abnormal) itrobacter freundii C.freundii INT EJNNA AMOX/ CLAVULANATE R 4 CEFAZOLIN R >= 64 1 CEFEPIME S <=1 CEFTRIAXONE S <=1 CIPROFLOXACIN S <=0.25 ERTAPENEM S <=0.5 GENTAMICIN S <=1 IMIPENEM S <=0.25 LEVOFLOXACIN S & lt;=0.12 NITROFURANTOIN S <=16 PIP/TAZOBACTAM S & lt;=4 TOBRAMYCIN S <=1 TRI METHOPRIM/SULFA S <=20S=Susceptible I=Intermediate R= Resistant *=Not TestedNR=Not Reported NN=See Therapy CommentsTHERAPY COMMENTS Note 1: ORAL therapy: A cefazolin JENNA of < 32 predicts susceptibility to the oral agents cefaclor, cefdinir, cefpodoxime, cefprozil, cefuroxime, cephalexin, and loracarbef when used for therapy of uncomplicated UTIs due to E. coli, K. pneumoniae, and P. mirabilis. PARENTERAL therapy: A cefazolin JENNA of > 8 indicates resistance to parenteral cefazolin. An alternate test method must be performed to to confirm susceptibility to parenteral cefazolin.[KS]----- Plan of Care Planned Observations Name Dates Details Planned Goals not documented Goal Planned Encounters Appointment; Provider: Zoran Douglass On 29-Jan-2016 10:00 Instructions Instructions not documented Encounters Appointment; Zoran Douglass On 16-Oct-2015 Encounter Diagnosis: Problem not documented 15:00 Appointment; Zoran Douglass On 07-Oct-2015 Encounter Diagnosis: Problem not documented 10:45 Appointment; Zoran Douglass On 18-Sep-2015 Encounter Diagnosis: Problem not documented 14:30 Appointment; Zoran Douglass On 14-Aug-2015 Encounter Diagnosis: Problem not documented 13:45 Appointment; Zoran Douglass On 22-Jul-2015 Encounter Diagnosis: Problem not documented 15:00 Appointment; Zoran Douglass On 12-Jun-2015 Encounter Diagnosis: Problem not documented 11:00 Appointment; Zoran Douglass On 22-May-2015 Encounter Diagnosis: Problem not documented 13:15
--- OUTSIDE RECORDS SUMMARY | 2017-09-26 09:04 | External Medical Summary | Summary of Care ---
:1940 Author Name Zoran Douglass M.D. Address [address] [place] [address] [place] [address] Care Team Providers Name Role Phone Zoran [...] 20 MG Oral Tablet Refills: 0 ActiveCephalexin 500 MG Oral Capsule TAKE 1 CAPSULE 3 TIMES DAILY UNTIL GONE. Quantity: 30 Refills: 0 Zoran Douglass M.D. Started 07-Oct-2015 Active Allergies and Adverse Reactions Name Dates [...] Description Value Details 10-Oct-2015 09:17 URINE CULTURE [id number] Comments: [facility] performed at: [place] [facility], [address] [place], [address], Rotary Shear Worker Helper: Zoran Bear D.O., MPHQuest Collection Date/Time: [facility] Results Received Date/Time: [id number] Reported Date/Time: [id number] performed at: [facility] [address] [address] [facility], [place], [address], Rotary Shear Worker Helper: Zoran Bear D.O., MPHQuest Collection Date/Time: [id number] Results Received Date/Time: [id number] Reported Date/Time: [id number] CULTURE, URINE, ROUTINE SEE NOTE Comments: CULTURE, URINE, ROUTINE MICRO NUMBER: [id number] TEST STATUS: FINAL SPECIMEN SOURCE: URINE , CLEAN CATCH SPECIMEN QUALITY: ADEQUATE RESULT: Greater than 100, 000 CFU/mL of C (Abnormal) itrobacter freundii C.freundii INT JENNA AMOX/ CLAVULANATE R 4 CEFAZOLIN R >= [...] performed to to confirm susceptibility to parenteral cefazolin.[YESIKA]----- Plan of Care Planned Observations Name Dates Details Planned Goals not documented Goal Planned Encounters Appointment; Provider: Zoran Douglass On 16-Oct-2015 15:00 Instructions Instructions not documented Encounters Appointment; Zoran Douglass On 07-Oct-2015 Encounter Diagnosis: [...]
--- OUTSIDE RECORDS SUMMARY | 2017-09-26 09:04 | External Medical Summary | Summary of Care ---
:1940 Author Name Zoran Douglass M.D. Address [address] [place] [address] [place] [address] Care Team Providers Name Role Phone Zoran [...] infection (112.1, B37.3) Status: Active Microhematuria (599.72, R31.2) Status: Active Incomplete bladder emptying (788.21, R33.9) Status: Active History of recurrent urinary tract infection (V13.02, Z87.440) Status: Resolved Medications Name Dates Details Aspirin EC 81 MG Oral Tablet Delayed Release Refills: 0 Active Calcium + D 600-200 MG-UNIT TABS Refills: 0 Active Fish Oil 1000 MG Oral Capsule Refills: 0 Active Estradiol 0.5 MG Oral Tablet Refills: 0 Active Atenolol 25 MG Oral Tablet Refills: 0 Active Cranberry 500 MG Oral Capsule Refills: 0 Active Vitamin B-12 100 MCG Oral Tablet Refills: 0 Active Zocor 20 MG Oral Tablet Refills: 0 Active Cephalexin 250 MG Oral Capsule TAKE 1 CAPSULE Bedtime Quantity: 90 Refills: 3 Zoran Douglass M.D. Start 16-Oct-2015 Active Allergies and Adverse Reactions Name [...] smoker Vital Signs Date Test Result Details 29-Jan-2016 10:03 BP Systolic 150 mm[Hg] Status: Comments: Location: ; Position: BP Diastolic 67 mm[Hg] Status: Comments: Location: ; Position: Heart Rate 59 /min Status: Comments: Location: ; Height 61 in Status: Weight 160 lb Status: Body Mass Index Calculated 30.23 kg/m2 Status: Body Surface Area Calculated 1.72 m2 Status: Results Date Description Value Details Results not documented Plan of Care Name Dates Details Planned Observations Planned Goals not documented Planned Encounters Appointment; Provider: Zoran Douglass M.D. On 29-Jul-2016 13:30 Instructions Name Dates Details Instructions not documented Encounters Appointment; Zoran Douglass M.D. On 16-Oct-2015 Encounter [...]
--- OUTSIDE RECORDS SUMMARY | 2017-09-26 09:04 | External Medical Summary | Summary of Care ---
:1940 Author Name Zoran Douglass M.D. Address [address] [place] [address] [place] [address] Care Team Providers Name Role Phone Doni [...] smoker Vital Signs Date Test Result Details 12-Jun-2015 11:23 BP Systolic 159 mm[Hg] Status: BP Diastolic 79 mm[Hg] Status: Heart Rate 64 /min Status: 22-May-2015 11:20 BP Systolic 138 mm[Hg] Status: BP Diastolic 81 mm[Hg] Status: Heart Rate 80 /min Status: Height 60 in Status: Weight 160 lb Status: Body Mass Index Calculated 31.25 kg/m2 Status: Body Surface Area Calculated 1.7 m2 Status: Results Date Description Value Details 25-May-2015 10:20 URINE CULTURE [id number] Comments: [facility] performed at: [facility], [address] [place] [address], [address] [place] [address], Utility Service Worker: Zoran Bear D.O., MPHQuest Collection Date/Time: [id number] Results Received Date/Time: [id number] Reported Date/Time: [id number] performed at: [facility], [address] [place] [address], [address] [place] [address], Utility Service Worker: Zoran Bear D.O., MPHQuest Collection Date/Time: [id number] Results Received Date/Time: [id number] Reported Date/Time: [id number] Acce ssion #: [id number] performed at: [place], [facility], [address] [place] [address], [address] [place] [address], Utility Service Worker: Zoran Bear D.O., MPHQuest Collection Date/Time: [id number] est Results Received Date/Time: [id number] Reported Date/Time: [id number] CULTURE, URINE, ROUTINE SEE NOTE Comments: CULTURE, URINE, ROUTINE MICRO NUMBER: [id number] TEST STATUS: FINAL SPECIMEN SOURCE: URINE , [...]
--- OUTSIDE RECORDS SUMMARY | 2017-09-26 09:04 | External Medical Summary | Summary of Care ---
:1940 Author Name Zoran Douglass M.D. Address [address] [place] [address] [place] [address] Care Team Providers Name Role Phone Zoran [...] Incomplete bladder emptying (788.21, R33.9) Status: Active UTI (urinary tract infection) (599.0, N39.0) Status: Active Medications Name Dates [...] MG Oral Capsule TAKE 1 CAPSULE 3 times daily Quantity: 30 Refills: 0 Zoran Douglass M.D. Started 29-May-2015 Ended 08-Jun-2015 Active Allergies and Adverse Reactions Name Dates [...] Description Value Details 25-May-2015 10:20 URINE CULTURE [id number] Comments: [facility] performed at: [facility], [address] [place] [address], [address] [place] [address], Project Drilling Engineer: Zoran Bear D.O., MPHQuest Collection Date/Time: [id number] Results Received Date/Time: [id number] Reported Date/Time: [id number] performed at: [facility], [address] [place] [address], [address] [place] [address], Project Drilling Engineer: Zoran Bear D.O., MPHQuest Collection Date/Time: [id number] Results Received Date/Time: [id number] Reported Date/Time: [id number] Acce ssion #: [id number] performed at: [facility], [address] [place] [address], [address] [place] [address], Project Drilling Engineer: Zoran Bear D.O., MPHQuest Collection Date/Time: [id number] est Results Received Date/Time: [id number] Reported Date/Time: [id number] CULTURE, URINE, ROUTINE SEE NOTE Comments: CULTURE, URINE, ROUTINE MICRO NUMBER: [id number] TEST STATUS: FINAL SPECIMEN SOURCE: URINE , [...]
--- OUTSIDE RECORDS SUMMARY | 2017-09-26 09:04 | External Medical Summary | Summary of Care ---
:1940 Author Name Zoran Douglass M.D. Address [address] [place] [address] [place] [address] Care Team Providers Name Role Phone Zoran [...] Description Value Details 10-Oct-2015 09:17 URINE CULTURE [id number] Comments: [facility] performed at: [place] [facility], [address] [place], [address], Skeiner: Zoran Bear D.O., MPHQuest Collection Date/Time: Results Received Date/Time: [id number] Reported Date/Time: [id number] performed at: [facility] [address] [place], [address], Skeiner: Zoran Bear D.O., MPHQuest Collection Date/Time: [id number] Results Received Date/Time: Reported Date/Time: CULTURE, URINE, ROUTINE SEE NOTE Comments: CULTURE, URINE, ROUTINE MICRO NUMBER: [id number] TEST STATUS: FINAL SPECIMEN SOURCE: URINE , [...]
--- OUTSIDE RECORDS SUMMARY | 2017-09-26 09:04 | External Medical Summary | Summary of Care ---
:1940 Author Name Zoran Douglass M.D. Address [address] [place] [address] [place] [address] Care Team Providers Name Role Phone Doni Baltazar Primary Care Provider Unavailable Unavailable Unavailable Unavailable Functional Status Functional Status Health Issues Name Dates Details Functional status health issues are not documented Status: Cognitive Status Health Issues Name Dates Details Cognitive status health issues are not documented Status: Problems Name Dates Details Dysuria (788.1, R30.0) Status: Active Urethral stricture (598.9, N35.9) Status: Active Bladder pain (788.99, R39.89) Status: [...] documented Goal Instructions Instructions not documented Encounters No Encounter data documented On 22-May-2015 Encounter Diagnosis: Problem not documented
--- OUTSIDE RECORDS SUMMARY | 2017-09-26 09:04 | External Medical Summary | Referral Summary ---
:1940 Author Organization [facility] [address] [place] [address] Care Team Providers Name Role Phone Doni Baltazar Primary Care Physician Encounter VC Date(s): 01/22/17 - 01/22/17 [facility] [address] [place] [address] [place] Discharge Diagnosis: Chronic UTI Discharge Diagnosis: Hyperlipidemia Discharge Diagnosis: Hypertension Discharge Diagnosis: Hormone replacement therapy (HRT) Discharge Diagnosis: Neuropathy Discharge Diagnosis: Obesity Discharge Disposition: 01-Home or Self Care Attending Physician: Doni Baltazar MD Admitting Physician: Doni Baltazar MD Vital Signs Most recent to oldest [Reference Range]: 1 Blood Pressure [90-140/60-90 mmHg] 150/70 mmHg *HI* (01/22/17 8:31 AM) Problem List Condition Effective Dates Status Health Status Informant Chronic UTI(Confirmed) Active Hormone replacement therapy Active (HRT)(Confirmed) Hyperlipidemia(Confirmed) Active Hypertension(Confirmed) Active Menopausal symptoms(Confirmed) Active Neuropathy(Confirmed) Active Obesity(Confirmed) Active patient Keratosis, seborrheic(Confirmed) Active Allergies, Adverse Reactions, Alerts Substance Reaction Severity Status ammoniated mercury topical Active penicillin Unknown Active pneumococcal 13-valent conjugate vaccine Rash Active sulfanilamide topical Unknown Active Medications aspirin 81 mg, Oral, Daily, 0 Refill(s) Start Date: 01/15/14 Status: Orderedatenolol 25 mg oral tablet 25 mg 1 tabs, Oral, Daily, # 90 tabs, 3 Refill(s), Pharmacy: [facility], Please disregard earlier escript, meant to add more refills., 1 tabs Oral Daily Start Date: 01/22/17 Status: OrderedCalcium 600+D 1 tabs, Oral, Daily, 0 Refill(s) Start Date: 01/15/14 Status: Orderedestradiol 0.5 mg oral tablet 1 tabs, Oral, Daily, 0 Refill(s) Start Date: 01/15/14 Status: OrderedKeflex 250 mg oral capsule mg caps, Oral, Daily, 0 Refill(s) Start Date: 01/22/16 Status: OrderedRestasis 0.05% ophthalmic emulsion 1 drops, Eye-Both, BID, # 30 Each, 0 Refill(s) Start Date: 06/10/16 Status: Orderedsimvastatin 20 mg oral tablet 20 mg 1 tabs, Oral, Bedtime (once a day), # 90 tabs, 3 Refill(s), Pharmacy: [facility], 1 tabs Oral Bedtime (once a day) Start Date: 01/22/17 Status: Ordered Results Hematology Most recent to oldest [Reference Range]: 1 WBC [4.8-10.8 10*3/uL] 5.8 10*3/uL (01/22/17 9:12 AM) RBC [4.00-5.20] 4.48 (01/22/17 9:12 AM) Hgb [12.0-16.0 gm/dL] 12.0 gm/dL (01/22/17 9:12 AM) Hct [37.0-47.0 %] 38.2 % (01/22/17 9:12 AM) MCV [82.0-99.0 fL] 85.3 fL (01/22/17 9:12 AM) MCH [27.0-32.0 pg] 26.8 pg *LOW* (01/22/17 9:12 AM) MCHC [32.0-36.0 gm/dL] 31.4 gm/dL *LOW* (01/22/17 9:12 AM) RDW [11.5-14.5 %] 14.7 % *HI* (01/22/17 9:12 AM) Platelet [150-400 10*3/uL] 231 10*3/uL (01/22/17 9:12 AM) MPV [8.8-14.8 fL] 10.7 fL (01/22/17 9:12 AM) Immature Granulocytes [0.0-1.0 %] 0.2 % (01/22/17 9:12 AM) Neutrophils [51-75 %] 52 % (01/22/17 9:12 AM) Lymphocytes [20-46 %] 36 % (01/22/17 9:12 AM) Monocytes [4-11 %] 9 % (01/22/17 9:12 AM) Eosinophils [0-4 %] 2 % (01/22/17:12 AM) Basophils [0-2 %] 0 % (01/22/17 9:12 AM) Neutro Absolute [1.90-7.00] 3.01 (01/22/17 9:12 AM) Lymph Absolute [0.80-3.30] 2.06 (01/22/17 9:12 AM) [place]ster Absolute [0.30-1.00] 0.54 (01/22/17 9:12 AM) Eos Absolute [0.00-0.50] 0.13 (01/22/17:12 AM) Baso Absolute [0.00-0.20] 0.02 (01/22/17 9:12 AM) Chemistry Most recent to oldest [Reference Range]: 1 Sodium Lvl [135-144 mEq/L] 140 mEq/L (01/22/17 9:12 AM) Potassium Lvl [3.5-5.2 mEq/L] 4.6 mEq/L (01/22/17 9:12 AM) Chloride [99-111 mEq/L] 107 mEq/L (01/22/17 9:12 AM) CO2 [22-31 mEq/L] 27 mEq/L (01/22/17:12 AM) AGAP [3-20 mEq/L] 6 mEq/L (01/22/17:12 AM) BUN [10-20 mg/dL] 13 mg/dL (01/22/17 9:12 AM) Glucose Lvl [70-99 mg/dL] 96 mg/dL (01/22/17 9:12 AM) Creatinine Lvl [0.57-1.11 mg/dL] 0.95 mg/dL (01/22/17 9:12 AM) eGFR [>60 mL/min] 57 mL/min 1 *ABN* (01/22/17 9:12 AM) Calcium Lvl [8.4-10.2 mg/dL] 9.3 mg/dL (01/22/17 9:12 AM) Albumin Lvl [3.4-4.8 gm/dL] 4.0 gm/dL (01/22/17 9:12 AM) Total Protein [6.0-7.6 gm/dL] 7.0 gm/dL (01/22/17 9:12 AM) Globulin [1.8-4.0 gm/dL] 3.0 gm/dL (01/22/17 9:12 AM) ALT [0-55 U/L] 20 U/L (01/22/17 9:12 AM) AST [5-34 U/L] 24 U/L (01/22/17 9:12 AM) Alk Phos [40-150 U/L] 117 U/L (01/22/17 9:12 AM) Bili Total [0.2-1.2 mg/dL] 0.4 mg/dL (01/22/17 9:12 AM) Chol [0-199 mg/dL] 173 mg/dL (01/22/17 9:12 AM) Trig [0-149 mg/dL] 163 mg/dL *HI* (01/22/17 9:12 AM) HDL [40-84 mg/dL] 51 mg/dL (01/22/17 9:12 AM) LDL [0-130 mg/dL] 89 mg/dL (01/22/17 9:12 AM) VLDL Cholesterol [0-28 mg/dL] 33 mg/dL *HI* (01/22/17 9:12 AM) Cardiac Risk [0.0-5.0] 3.4 (01/22/17 9:12 AM) 1Result Comment: Multiply eGFR results by 1.21 for race.Urinalysis Most recent to oldest [Reference Range]: 1 UA Color Yellow (01/22/17 9:22 AM) UA Appear Clear (01/22/17 9:22 AM) UA pH [5.0-8.0] 6.5 (01/22/17 9:22 AM) UA Leuk Est [Negative] Negative (01/22/17 9:22 AM) UA Nitrite [Negative] Negative (01/22/17 9:22 AM) UA Protein [Negative] Negative (01/22/17 9:22 AM) UA Glucose [Negative] Negative (01/22/17 9:22 AM) UA Ketones [Negative] Negative (01/22/17 9:22 AM) UA Urobilinogen [<1.0 mg/dL] 0.2 mg/dL (01/22/17 9:22 AM) UA Bili [Negative] Negative (01/22/17 9:22 AM) UA Blood [Negative] Negative (01/22/17 9:22 AM) UA Spec Grav [1.003-1.030] 1.007 (01/22/17 9:22 AM) Type Voided (01/22/17 9:22 AM) Immunizations Given and Recorded Vaccine Date Status Refusal Reason influenza virus vaccine, inactivated 03/21/16 Recorded pneumococcal 23-polyvalent vaccine 03/21/10 Recorded zoster vaccine live 04/25/09 Recorded tetanus-diphth toxoids (Td) adult/adol 11/25/07 Recorded hepatitis B pediatric vaccine 04/22/05 Recorded hepatitis B vaccine 11/24/04 Recorded Procedures Procedure Date Related Diagnosis Body Site Colonoscopy Hysterectomy Tonsillectomy Social History Social History Type Response Smoking Status Never smoker Assessment and Plan Extracted from: Title: Ambulatory Patient Education Author: Doni Baltazar MD Date: Preventive Health Cholesterol Cholesterol is a white, waxy, fat-like substance needed by your body in small amounts. The liver makes all the cholesterol you need. Cholesterol is carried from the liver by the blood through the blood vessels. Deposits of cholesterol (plaque) may build up [...] in your daily life. Medicine. Take medicine only as directed by your health care provider. Medicine may be prescribed by your health care provider to help lower cholesterol and decrease the risk for heart disease. If you have several risk factors, you may need medicine even if your levels are normal. This information is not intended to replace advice given to you by your health care provider. Make sure you discuss any questions you have with your health care provider. Document Released: 03/02/2002 Document Revised: 06/28/2015 Document Reviewed: 03/21/2014 [employer] Interactive Patient Education 2016 [employer] No follow up information was provided. Extracted from: Title: Office Visit Note Author: Doni Baltazar MD Date: 01/22/17 Chronic UTI UA pending. She has hadtwo cystoscopies? No IC reported. Plans to restart keflex 500mg po qd from Dr. Douglass. To ER prn. The patient has family members present who are agreeable with today's plan and have no additional concerns or requests. here. Hormone replacement therapy (HRT) This issue was reviewed, appears stable, and current therapy continued except as mentioned. Appropriate lab was reviewed from the most recent appropriate entry and lab was ordered if needed in the cp oe/nursing orders, and follow up recommended generally in 90 days and no later then six months. Has f/u with Dr. Catalan in one week. Hyperlipidemia This issue was reviewed, appears stable, and current therapy continued except as mentioned. Appropriate lab was reviewed from the most recent appropriate entry and lab was ordered if needed in the cp oe/nursing orders, and follow up recommended generally in 90 days and no later then six months. Lab pending. Ordered: Lipid Panel Hypertension This issue was reviewed, appears stable, and current therapy continued except as mentioned. Appropriate lab was reviewed from the most recent appropriate entry and lab was ordered if needed in the cp oe/nursing orders, and follow up recommended generally in 90 days and no later then six months. The patient reports their blood pressure has been stable at home and is not having any significant or related problems. There has been no chest pain, chest pressure, soa/burch. The patient had an elevated blood pressure reading and is to monitor their bp and call with a report if consistently > 140/90. Ordered: CBC w/ Differential Comprehensive Metabolic Panel Urinalysis with Culture if Indicated Neuropathy This issue was reviewed, appears stable, and current therapy continued except as mentioned. Appropriate lab was reviewed from the most recent appropriate entry and lab was ordered if needed in the cp oe/nursing orders, and follow up recommended generally in 90 days and no later then six months. Obesity Diet and exercise as tolerated and feasible. Consider medication when interested.
--- OUTSIDE RECORDS SUMMARY | 2017-09-26 09:04 | External Medical Summary | Referral Summary ---
:1940 Author Care Team Providers Name Role Phone Doni Baltazar Primary Care Physician Encounter [facility] [id number] Date(s): 10/05/14 - 10/05/14 Via [facility], [place], Family [facility] [address] [place] [address] [place] [id number] Discharge Diagnosis: Hypertension Discharge Diagnosis: Acute UTI Discharge Diagnosis: Neuropathy Discharge Disposition: Home or Self Care Attending Physician: Doni Baltazar MD Admitting Physician: Doni Baltazar MD Vital Signs Most recent to oldest [Reference Range]: 1 Blood Pressure [90-140/60-90 mmHg] 124/78 mmHg (10/05/14 8:09 AM) Problem List Condition Effective Dates Status Health Status Informant Hyperlipidemia(Confirmed) Active Hypertension(Confirmed) Active Neuropathy(Confirmed) Active Allergies, Adverse Reactions, Alerts Substance Reaction Severity Status ammoniated mercury topical Active penicillin Unknown Active sulfanilamide topical Unknown Active Medications aspirin 81 mg, Oral, Daily, 0 Refill(s) Start Date: 01/15/14 Status: Orderedatenolol 25 mg oral tablet See Instructions, 1 tabs Oral Daily, # 90 tabs, eRx: [facility], 1 tabs Oral Daily Special Instructions: 1 tabs Oral Daily Start Date: 07/23/14 Status: OrderedCalcium 600+D 1 tabs, Oral, Daily, 0 Refill(s) Start Date: 01/15/14 Status: Orderedcranberry 1 tabs, Oral, Daily, 0 Refill(s) Start Date: 01/15/14 Status: Orderedestradiol 0.5 mg oral tablet 1 tabs, Oral, Daily, 0 Refill(s) Start Date: 01/15/14 Status: OrderedFish Oil 1000 mg oral capsule 1 caps, Oral, Daily, 0 Refill(s) Start Date: 01/15/14 Status: OrderedKeflex 500 mg oral capsule 1 caps, Oral, QID, X 10 days, # 40 caps, 0 Refill(s), Pharmacy: [facility] #[id number], 1 caps Oral QID,x10 days Start Date: 10/05/14 Stop Date: 10/15/14 Status: OrderedVitamin B-12 100 mcg, Oral, Daily, 0 Refill(s) Start Date: 01/15/14 Status: OrderedZocor 20 mg oral tablet 1 tabs, Oral, Bedtime (once a day), # 90 tabs, 1 Refill(s), Pharmacy: [facility], 1 tabs OralBedtime (once a day) Start Date: 01/15/14 Status: Ordered Results Urinalysis Most recent to oldest [Reference Range]: 1 UA Color Yellow (10/05/14 8:40 AM) UA Appear Sl Cloudy (10/05/14 8:40 AM) UA pH [5.0-8.0] 5.5 (10/05/14 8:40 AM) UA Leuk Est [Negative] Pos 2+ *ABN* (10/05/14 8:40 AM) UA Nitrite [Negative] Negative (10/05/14 8:40 AM) UA Protein [Negative] Negative (10/05/14 8:40 AM) UA Glucose [Negative] Negative (10/05/14 8:40 AM) UA Ketones [Negative] Negative (10/05/14 8:40 AM) UA Urobilinogen 0.2 mg/dL (10/05/14 8:40 AM) UA Bili [Negative] Negative (10/05/14 8:40 AM) UA Blood Trace *ABN* (10/05/14 8:40 AM) UA Spec Grav [1.003-1.030] 1.015 (10/05/14 8:40 AM) Type Voided (10/05/14 8:40 AM) UA WBC [0-4] 20-50 *ABN* (10/05/14 8:40 AM) UA RBC [0-2] None seen (10/05/14 8:40 AM) Epithelial Cells 2-5 (10/05/14 8:40 AM) UA Bacteria Moderate *ABN* (10/05/14 8:40 AM) Immunizations No data available for this section Procedures Procedure Date Related Diagnosis Body Site Colonoscopy Hysterectomy Tonsillectomy Social History Social History Type Response Smoking Status Never smoker Assessment and Plan Extracted from: Title: Ambulatory Patient Education Author: Doni Baltazar MD Date: Family Medicine Arterial Hypertension Arterial hypertension (high blood pressure ) is a condition of elevated pressure in your blood vessels. Hypertension over a long period of time is a risk factor for strokes, heart attacks, and heart rl lure. It is also the leading cause of kidney (renal ) failure. CAUSES In Adults -- Over 90% of all hypertension has no known cause. This is called essential or primary hypertension. In the other 10% of people with hypertension, the increase in blood pressure is cause d by another disorder. This is called secondary hypertension . Important causes of secondary hypertension are: Heavy alcohol use. Obstructive sleep apnea. Hyperaldosterosim (Conn's syndrome). Steroid use. Chronic kidney failure. Hyperparathyroidism. Medications. Renal artery stenosis. Pheochromocytoma. Pangburn's disease. Coarctation of the aorta. Scleroderma renal crisis. Licorice (in excessive amounts). Drugs (cocaine, methamphetamine). Your caregiver can explain any items above that apply to you. In Children -- Secondary hypertension is more common and should always be considered. -- Few women of childbearing age have high blood pressure. However, up to 10% of them develop hypertension of . Generally, this will not harm the woman. It may be a sign of 3 com plications of : preeclampsia, HELLP syndrome, and eclampsia. Follow up and control with medication is necessary. SYMPTOMS This condition normally does not produce any noticeable symptoms. It is usually found during a routine exam. Malignant hypertension is a late problem of high blood pressure. It may have the following symptoms: Headaches. Blurred vision. End-organ damage (this means your kidneys, heart, lungs, and other organs are being damaged). Stressful situations can increase the blood pressure. If a person with normal blood pressure has their blood pressure go up while being seen by their caregiver, this is often termed "white coat hyp ertension." Its importance is not known. It may be related with eventually developing hypertension or complications of hypertension. Hypertension is often confused with mental tension, stress, and anxiety. DIAGNOSIS The diagnosis is made by 3 separate blood pressure measurements. They are taken at least 1 week apart from each other. If there is organ damage from hypertension, the diagnosis may be made without repeat measurements. Hypertension is usually identified by having blood pressure readings: Above 140/90 mmHg measured in both arms, at 3 separate times, over a couple weeks. Over 130/80 mmHg should be considered a risk factor and may require treatment in patients with diabetes. Blood pressure readings over 120/80 mmHg are called "pre-hypertension" even in non-diabetic patients. To get a true blood pressure measurement, use the following guidelines. Be aware of the factors that can alter blood pressure readings. Take measurements at least 1 hour after caffeine. Take measurements 30 minutes after smoking and without any stress. This is another reason to quit smoking it raises your blood pressure. Use a proper cuff size. Ask your caregiver if you are not sure about your cuff size. Most home blood pressure cuffs are automatic. They will measure systolic and diastolic pressures. The systolic pressure is the pressure reading at the start of sounds. Diastolic pressure is the pre ssure at which the sounds disappear. If you are elderly, measure pressures in multiple postures. Try sitting, lying or standing. Sit at rest for a minimum of 5 minutes before taking measurements. You should not be on any medications like decongestants. These are found in many cold medications. Record your blood pressure readings and review them with your caregiver. If you have hypertension: Your caregiver may do tests to be sure you do not have secondary hypertension (see "causes" above). Your caregiver may also look for signs of metabolic syndrome. This is also called Syndrome X or Insulin Resistance Syndrome. You may have this syndrome if you have type 2 diabetes, abdominal obesit y, and abnormal blood lipids in addition to hypertension. Your caregiver will take your medical and family history and perform a physical exam. Diagnostic tests may include blood tests (for glucose, cholesterol, potassium, and kidney function), a urinalysis, or an EKG. Other tests may also be necessary depending on your condition. PREVENTION There are important lifestyle issues that you can adopt to reduce your chance of developing hypertension: Maintain a normal weight. Limit the amount of salt (sodium ) in your diet. Exercise often. Limit alcohol intake. Get enough potassium in your diet. Discuss specific advice with your caregiver. Follow a DASH diet (dietary approaches to stop hypertension). This diet is rich in fruits, vegetables, and low-fat dairy products, and avoids certain fats. PROGNOSIS Essential hypertension cannot be cured. Lifestyle changes and medical treatment can lower blood pressure and reduce complications. The prognosis of secondary hypertension depends on the underlying cause . Many people whose hypertension is controlled with medicine or lifestyle changes can live a normal, healthy life. RISKS AND COMPLICATIONS While high blood pressure alone is not an illness, it often requires treatment due to its short- and long-term effects on many organs. Hypertension increases your risk for: CVAs or strokes (cerebrovascular accident ). Heart failure due to chronically high blood pressure (hypertensive cardiomyopathy ). Heart attack (myocardial infarction ). Damage to the retina (hypertensive retinopathy ). Kidney failure (hypertensive nephropathy ). Your caregiver can explain list items above that apply to you. Treatment of hypertension can significantly reduce the risk of complications. TREATMENT For overweight patients, weight loss and regular exercise are recommended. Physical fitness lowers blood pressure. Mild hypertension is usually treated with diet and exercise. A diet rich in fruits and vegetables, fat-free dairy products, and foods low in fat and salt (sodium ) can help lower blood pressure. De creasing salt intake decreases blood pressure in a 1/3 of people. Stop smoking if you are a smoker. The steps above are highly effective in reducing blood pressure. While these actions are easy to suggest, they are difficult to achieve. Most patients with moderate or severe hypertension end up requiri ng medications to bring their blood pressure down to a normal level. There are several classes of medications for treatment. Blood pressure pills ( antihypertensives ) will lower blood pressure by their different actions. Lowering the blood pressure by 10 mmHg may decrease the risk of complications by as much as 25%. The goal of treatment is effective blood pressure control. This will reduce your risk for complications. Your caregiver will help you determine the best treatment for you according to your lifestyle. Wh at is excellent treatment for one person, may not be for you. HOME CARE INSTRUCTIONS Do not smoke. Follow the lifestyle changes outlined in the "Prevention" section. If you are on medications, follow the directions carefully. Blood pressure medications must be taken as prescribed. Skipping doses reduces their benefit. It also puts you at risk for problems. Follow up with your caregiver, as directed. If you are asked to monitor your blood pressure at home, follow the guidelines in the "Diagnosis" section above. SEEK MEDICAL CARE IF: You think you are having medication side effects. You have recurrent headaches or lightheadedness. You have swelling in your ankles. You have trouble with your vision. SEEK IMMEDIATE MEDICAL CARE IF: You have sudden onset of chest pain or pressure, difficulty breathing, or other symptoms of a heart attack. You have a severe headache. You have symptoms of a stroke (such as sudden weakness, difficulty speaking, difficulty walking). MAKE SURE YOU: Understand these instructions. Will watch your condition. Will get help right away if you are not doing well or get worse. Document Released: 06/07/2006 Document Revised: 08/29/2012 Document Reviewed: 01/05/2008 Exit[employer] Patient Information 2014 [employer] [facility]. No follow up information was provided. Extracted from: Title: Office Visit Note Author: Doni Baltzaar MD Date: 10/05/14 Assessment/Plan Acute UTI UA pending. Long discussion about meds. She wants keflex 500mg po qid for ten days. Monitor for rash. Hypertension This issue is stable and appropriate refills, lab, and f/u have been discussed. The patient reports their blood pressure has been stable at home and is not having any significant or related problems. There has been no chest pain, chest pressure, soa/burch. Neuropathy History of neuropathy and she did NOT want cipro. No current c/ os. Orders: cephalexin, 1 caps, Oral, QID, X 10 days, # 40 caps, 0 Refill(s), Pharmacy: [facility] #[id number], 1 caps Oral QID,x10 days Urine Culture
--- OUTSIDE RECORDS SUMMARY | 2017-09-26 09:05 | External Medical Summary | Summary of Care ---
:1940 Author Name Zoran Douglass M.D. Address [address] [place] [address] [place] [address] Care Team Providers Name Role Phone Zoran [...] ActiveZocor 20 MG Oral Tablet Refills: 0 ActiveFluconazole 100 MG Oral Tablet Take 1 tablet daily Quantity: 3 Refills: 0 Zoran Douglass M.D. Started 22-Jul-2015 Ended 25-Jul-2015 Active Allergies and Adverse Reactions Name Dates [...] With Removal Of Both Ovaries URINE CULTURE [id number] Ordered:22-Jul-2015 Immunization Name Dates Details Immunizations not documented [...]
--- OUTSIDE RECORDS SUMMARY | 2017-09-26 09:05 | External Medical Summary | Referral Summary ---
:1940 Author Organization Via [facility] Address [address] [place] [address] [place] [id number] Care Team Providers Name Role Phone Doni Baltazar Primary Care Physician Encounter [facility] Date(s): 01/22/16 - 01/22/16 [facility] [address] [place] [address] [place] Discharge Disposition: 01-Home or Self Care Attending Physician: Doni Baltazar MD Admitting Physician: Doni Baltazar MD Vital Signs Most recent to oldest [Reference Range]: 1 Blood Pressure [90-140/60-90 mmHg] 160/70 mmHg *HI* (01/22/16 10:34 AM) Problem List Condition Effective Dates Status Health Status Informant Chronic UTI(Confirmed) Active Hyperlipidemia(Confirmed) Active Hypertension(Confirmed) Active Menopausal symptoms(Confirmed) Active Neuropathy(Confirmed) Active Obesity(Confirmed) Active patient Keratosis, seborrheic(Confirmed) Active Allergies, Adverse Reactions, Alerts Substance Reaction Severity Status ammoniated mercury topical Active penicillin Unknown Active pneumococcal 13-valent conjugate vaccine Rash Active sulfanilamide topical Unknown Active Medications aspirin 81 mg, Oral, Daily, 0 Refill(s) Start Date: 01/15/14 Status: Orderedatenolol 25 mg oral tablet See Instructions, TAKE 1 TABLET BY MOUTH DAILY, # 90 tabs, 1 Refill(s), Pharmacy : [facility],TAKE 1 TABLET BY MOUTH DAILY Start Date: 01/22/16 Status: OrderedCalcium 600+D 1 tabs, Oral, Daily, [...] Daily, 0 Refill(s) Start Date: 01/22/16 Status: Orderedsimvastatin 20 mg oral tablet See Instructions, TAKE 1 TABLET BY MOUTH DAILY AT BEDTIME Generic For- ZOCOR, # 90 tabs, 1 Refill(s), Pharmacy: [facility], TAKE 1 TABLET BY MOUTH DAILY AT BEDTIME Generic For- ZOCOR Start Date: 01/22/16 Status: OrderedVitamin B-12 100 mcg, Oral, Daily, 0 Refill(s) Start Date: 01/15/14 Status: Ordered Results Hematology Most recent to oldest [Reference Range]: 1 WBC [4.8-10.8 10*3/uL] 6.2 10*3/uL (01/22/16 11:04 AM) RBC [4.00-5.20] 4.55 (01/22/16 11:04 AM) Hgb [12.0-16.0 gm/dL] 13.1 gm/dL (01/22/16 11:04 AM) Hct [37.0-47.0 %] 40.1 % (01/22/16 11:04 AM) MCV [82.0-99.0 fL] 88.1 fL (01/22/16 11:04 AM) MCH [27.0-32.0 pg] 28.8 pg (01/22/16 11:04 AM) MCHC [32.0-36.0 gm/dL] 32.7 gm/dL (01/22/16 11:04 AM) RDW [11.5-14.5 %] 14.3 % (01/22/16 11:04 AM) Platelet [150-400 10*3/uL] 229 10*3/uL (01/22/16 11:04 AM) MPV [8.8-14.8 fL] 10.6 fL (01/22/16 11:04 AM) Immature Granulocytes [0.0-1.0 %] 0.0 % (01/22/16 11:04 AM) Neutrophils [51-75 %] 58 % (01/22/16 11:04 AM) Lymphocytes [20-46 %] 32 % (01/22/16 11:04 AM) Monocytes [4-11 %] 8 % (01/22/16 11:04 AM) Eosinophils [0-4 %] 2 % (01/22/16 11:04 AM) Basophils [0-2 %] 1 % (01/22/16 11:04 AM) Neutro Absolute [1.90-7.00 10*3] 3.57 10*3 (01/22/16 11:04 AM) Lymph Absolute [0.80-3.30 10*3] 2.00 10*3 (01/22/16 11:04 AM) [place] Absolute [0.30-1.00 10*3] 0.47 10*3 (01/22/16 11:04 AM) Eos Absolute [0.00-0.50 10*3] 0.13 10*3 (01/22/16 11:04 AM) Baso Absolute [0.00-0.20 10*3] 0.03 10*3 (01/22/16 11:04 AM) Chemistry Most recent to oldest [Reference Range]: 1 Sodium Lvl [135-144 mEq/L] 138 mEq/L (01/22/16 11:04 AM) Potassium Lvl [3.5-5.2 mEq/L] 4.7 mEq/L (01/22/16 11:04 AM) Chloride [99-111 mEq/L] 105 mEq/L (01/22/16 11:04 AM) CO2 [22-31 mEq/L] 27 mEq/L (01/22/16 11:04 AM) AGAP [3-20] 6 (01/22/16 11:04 AM) BUN [10-20 mg/dL] 14 mg/dL (01/22/16 11:04 AM) Glucose Lvl [70-99 mg/dL] 95 mg/dL (01/22/16 11:04 AM) Creatinine Lvl [0.57-1.11 mg/dL] 0.96 mg/dL (01/22/16 11:04 AM) eGFR [>60 mL/min] 56 mL/min 1 *ABN* (01/22/16 11:04 AM) Calcium Lvl [8.9-10.5 mg/dL] 9.5 mg/dL (01/22/16 11:04 AM) Albumin Lvl [3.4-4.8 gm/dL] 3.9 gm/dL (01/22/16 11:04 AM) Total Protein [6.0-7.6 gm/dL] 6.5 gm/dL 2 (01/22/16 11:04 AM) Globulin [1.8-4.0 gm/dL] 2.6 gm/dL (01/22/16 11:04 AM) ALT [0-55 U/L] 21 U/L (01/22/16 11:04 AM) AST [5-34 U/L] 21 U/L (01/22/16 11:04 AM) Alk Phos [40-150 U/L] 110 U/L (01/22/16 11:04 AM) Bili Total [0.2-1.2 mg/dL] 0.6 mg/dL (01/22/16 11:04 AM) Chol [0-199 mg/dL] 160 mg/dL (01/22/16 11:04 AM) Trig [0-149 mg/dL] 189 mg/dL *HI* (01/22/16 11:04 AM) HDL [40-84 mg/dL] 51 mg/dL (01/22/16 11:04 AM) LDL [0-130 mg/dL] 71 mg/dL (01/22/16 11:04 AM) VLDL Cholesterol [0-28 mg/dL] 38 mg/dL *HI* (01/22/16 11:04 AM) Cardiac Risk [0.0-5.0] 3.1 (01/22/16 11:04 AM) 1Result Comment: Multiply eGFR results by 1.21 for race.2Result Comment: Please note new reference range for adult Protein. Immunizations Vaccine Date Refusal Reason hepatitis B [...] include yobany food cake, reese snaps, animal crackers , hard candy, popsicles, and low-fat or nonfat [...] 03/02/2002 Document Revised: 06/28/2015 Document Reviewed: 03/21/2014 [facility] Patient Information 2016 [employer]. No follow up information was provided. Extracted from: Title: Office Visit Note Author: Doni Baltazar MD Date: 01/22/16 Assessment/Plan Chronic UTI This issue was reviewed, appears stable, and current therapy continued except as mentioned. Appropriate lab was reviewed from the most recent appropriate entry and lab was ordered if needed in the cpoe/nursing orders, and follow up recommended generally in 90 days and no later then six months. Seeing outside Urologist. Hyperlipidemia This issue was reviewed, appears stable, and current therapy continued except as mentioned. Appropriate lab was reviewed from the most recent appropriate entry and lab was ordered if needed in the cpoe/nursing orders, and follow up recommended generally in 90 days and no later then six months. Lab pending. Ordered: Lipid Panel Hypertension This issue was reviewed, appears stable, and current therapy continued except as mentioned. Appropriate lab was reviewed from the most recent appropriate entry and lab was ordered if ne eded in the cpoe/nursing orders, and follow up recommended generally in 90 days and no later then six months. The patient had an elevated blood pressure reading and is to monitor their bp and call with a report if consistently > 140/90. The patient has family members present who are agreeable with today's plan and have no additional concerns or requests. here. Needs to monitorcloser. Ordered: CBC w/ Differential Comprehensive Metabolic Panel Lipid Panel Keratosis, seborrheic We discussed several options for treatment for this condition. The patient declined any changes or other treatments at this time. Cryo when interested. Menopausal symptoms This issue was reviewed, appears stable, and current therapy continued except as mentioned. Appropriate lab was reviewed from the most recent appropriate entry and lab was ordere d if needed in the cpoe/nursing orders, and follow up recommended generally in 90 days and no later then six months. DeclinesDXA. Neuropathy This issue was reviewed, appears stable, and current therapy continued except as mentioned. Appropriate lab was reviewed from the most recent appropriate entry and lab was ordered if need ed in the cpoe/nursing orders, and follow up recommended generally in 90 days and no later then six months. Orders: atenolol, See Instructions, TAKE 1 TABLET BY MOUTH DAILY, # 90 tabs, 1 Refill(s), Pharmacy: [facility], TAKE 1 TABLET BY MOUTH DAILY simvastatin, See Instructions, TAKE 1 TABLET BY MOUTH DAILY AT BEDTIME Generic For- ZOCOR, # 90 tabs, 1 Refill(s), Pharmacy: [facility], TAKE 1 TABLET BY MOUTH DAILY AT BEDTIME Generic For- ZOCOR
--- OUTSIDE RECORDS SUMMARY | 2017-09-26 09:05 | External Medical Summary | Referral Summary ---
:1940 Author Organization [facility] Address [address] [place] [address] [place] [address] Care Team Providers Name Role Phone Doni Baltazar Primary Care Physician Encounter VC Date(s): 10/26/14 - 10/26/14 [facility] [address] [place] [phone] [place] Discharge Disposition: 01-Home or Self Care Attending Physician: Doni Baltazar MD Admitting Physician: Doni Baltazar MD Vital Signs Most recent to oldest [Reference Range]: 1 Blood Pressure [90-140/60-90 mmHg] 140/70 mmHg (10/26/14 2:07 PM) Problem List Condition Effective Dates Status Health [...] days, # 90 tabs, 3 Refill(s), Pharmacy: [facility], 1 tabs Oral Daily,x90 days Start Date: [...] days, # 90 tabs, 3 Refill(s), Pharmacy: [facility], 1 tabs Oral Bedtime (once a day),x90 days Start Date: 01/16/15 Stop Date: 01/11/16 Status: Ordered Results Urinalysis Most recent to oldest [Reference Range]: 1 UA Color Yellow (10/26/14 2:47 PM) UA Appear Clear (10/26/14 2:47 PM) UA pH [5.0-8.0] 6.0 (10/26/14 2:47 PM) UA Leuk Est [Negative] Negative (10/26/14 2:47 PM) UA Nitrite [Negative] Negative (10/26/14 2:47 PM) UA Protein [Negative] Negative (10/26/14 2:47 PM) UA Glucose [Negative] Negative (10/26/14 2:47 PM) UA Ketones [Negative] Negative (10/26/14 2:47 PM) UA Urobilinogen [<1.0 mg/dL] 0.2 mg/dL (10/26/14 2:47 PM) UA Bili [Negative] Negative (10/26/14 2:47 PM) UA Blood [Negative] Negative (10/26/14 2:47 PM) UA Spec Grav [1.003-1.030] 1.013 (10/26/14 2:47 PM) Type Voided (10/26/14 2:47 PM) Immunizations Vaccine Date Refusal Reason hepatitis B pediatric vaccine 04/22/05 hepatitis B vaccine 11/24/04 pneumococcal 23-polyvalent vaccine 03/21/10 tetanus-diphth toxoids (Td) adult/adol 11/25/07 zoster vaccine live 04/25/09 Procedures Procedure Date Related Diagnosis Body Site Colonoscopy Hysterectomy Tonsillectomy Social History Social History Type Response Smoking Status Never smoker Assessment and Plan Extracted from: Title: Ambulatory Patient Education Author: Doni Baltazar MD Date: Emergency Medicine Abdominal Pain, Adult Many things can cause abdominal pain. Usually, abdominal pain is not caused by a disease and will improve without treatment. It can often be observed and treated at home. Your health care provider will do a physical exam and possibly order blood tests and X-rays to help determine the seriousness of your pain. However, in many cases, more time must pass before a clear cause of the pain can be found. Be fore that point, your health care provider may not know if you need more testing or further treatment. HOME CARE INSTRUCTIONS Monitor your abdominal pain for any changes. The following actions may help to alleviate any discomfort you are experiencing: Only take [id number]-[id number] or prescription medicines as directed by your health care provider. Do not take laxatives unless directed to do so by your health care provider. Try a clear liquid diet (broth, tea, or water) as directed by your health care provider. Slowly move to a bland diet as tolerated. SEEK MEDICAL CARE IF: You have unexplained abdominal pain. You have abdominal pain associated with nausea or diarrhea. You have pain when you urinate or have a bowel movement. You experience abdominal pain that wakes you in the night. You have abdominal pain that is worsened or improved by eating food. You have abdominal pain that is worsened with eating fatty foods. SEEK IMMEDIATE MEDICAL CARE IF: Your pain does not go away within 2 hours. You have a fever. You keep throwing up (vomiting ). Your pain is felt only in portions of the abdomen, such as the right side or the left lower portion of the abdomen. You pass bloody or black tarry stools. MAKE SURE YOU: Understand these instructions. Will watch your condition. Will get help right away if you are not doing well or get worse. Document Released: 03/17/2006 Document Revised: 03/28/2014 Document Reviewed: 02/14/2014 ExitCare Patient Information 2014 SocialRep. No follow up information was provided. Extracted from: Title: Office Visit Note Author: Doni Baltazar MD Date: 10/26/14 Assessment/Plan Abdominal pain UA pending. Recommended consult and CT and declined for now.Cipro 500mg po bid for ten days if needed. Ordered: Urinalysis with Culture if Indicated Urinalysis with Culture if Indicated Dysuria See above.
--- OUTSIDE RECORDS SUMMARY | 2017-09-26 09:05 | External Medical Summary | Referral Summary ---
:1940 Author [facility] Address [address] [place] [address] [place] [address] Care Team Providers Name Role Phone Doni Baltazar Primary Care Physician Encounter VC Date(s): 10/30/14 - 10/30/14 [facility] [address] [place] [phone] [place] Discharge Disposition: 01-Home or Self Care Attending Physician: Doni Baltazar MD Admitting Physician: Doni Baltazar MD Vital Signs No [...] days, # 90 tabs, 3 Refill(s), Pharmacy: [facility], 1 tabs Oral Daily,x90 days [...] days, # 90 tabs, 3 Refill(s), Pharmacy: [facility], 1 tabs Oral Bedtime (once a [...] failure. Hyperparathyroidism. Medications. Renal artery stenosis. Pheochromocytoma. Fely's disease. Coarctation of the aorta. Scleroderma renal [...] 06/07/2006 Document Revised: 08/29/2012 Document Reviewed: 01/05/2008 [facility] Patient Information 2014 HotelQuickly. No follow up information was provided. Extracted from: Title: Office Visit Note Author: Doni Baltazar MD Date: 10/30/14 Assessment/Plan Dysuria Recommended aUrology consult and/or consider an abd/pelvic CT. Discussed at length and declined by her at this time. The patient has family members present who are agreeable with today' s plan and have no additional concerns or requests. Stop cipro at her request and as previously directed due to her normal UA recently. Keflex 500mg po qid for ten days at her request to have on hand for any further infection. Hypertension This issue is stable and appropriate refills, lab, and f/u have been discussed. The patient reports their blood pressure has been stable at home and is not having any significant or related problems. There has been no chest pain, chest pressure, soa/burch. Orders: cephalexin, 1 caps, Oral, QID, X 10 days, # 40 caps, 0 Refill(s), Pharmacy: [facility], 1 caps Oral QID,x10 days
--- OUTSIDE RECORDS SUMMARY | 2017-09-26 09:05 | External Medical Summary | Referral Summary ---
:1939 Author Organization [facility] Address [address] [place] [address] [place] [address] Care Team Providers Name Role Phone Doni Baltazar Primary Care Physician Encounter VC Date(s): 01/16/15 - 01/16/15 [facility] [address] [place] [phone] [place] Discharge Disposition: [...] days, # 90 tabs, 3 Refill(s), Pharmacy: [facility], 1 tabs Oral Daily,x90 days [...] days, # 90 tabs, 3 Refill(s), Pharmacy: [facility], 1 tabs Oral Bedtime (once a [...] [0.80-3.30 10*3] 2.00 10*3 (01/16/15 9:08 AM) [facility] [0.30-1.00 10*3] 0.59 10*3 (01/16/15 9:08 [...] Document Reviewed: 03/21/2014 ExitCare Patient Information 2015 Collexpo. This information is not intended to replace [...] stable at home. BP journal from the [facility]ormal. Medication refilled for one year as a courtesy. She will need appointments for any further requests. Menopausal symptoms This issue is stable and appropriate refills, lab, and f/ u have been discussed. Seeing Geriatric Case Manager for estradiol. Neuropathy This issue is stable and appropriate refills, lab, and f/u have been discussed. Meds offered and declined. The patient has family members present who are agreeable with today's plan and have no additional concerns or requests. Orders: atenolol, 25 mg 1 tabs, Oral, Daily, X 90 days, # 90 tabs, 3 Refill(s ), Pharmacy: [facility], 1 tabs Oral Daily,x90 days simvastatin, 20 mg 1 tabs, Oral, Bedtime (once a day), X 90 days, # 90 tabs, 3 Refill(s), Pharmacy: [facility], 1 tabs Oral Bedtime (once a day),x90 days
--- OUTSIDE RECORDS SUMMARY | 2017-09-26 09:05 | External Medical Summary | Referral Summary ---
:1940 Author Organization [facility] Address [address] [place] [address] [place] [address] Care Team Providers Name Role Phone Doni Baltazar Primary Care Physician Encounter VC Date(s): 01/16/15 - 01/16/15 [facility] [address] [place] [phone] [place] Discharge Disposition: [...] days, # 90 tabs, 3 Refill(s), Pharmacy: [facility], 1 tabs Oral Daily,x90 days [...] days, # 90 tabs, 3 Refill(s), Pharmacy: [facility], 1 tabs Oral Bedtime (once a [...] [0.80-3.30 10*3] 2.00 10*3 (01/16/15 9:08 AM) [facility] [0.30-1.00 10*3] 0.59 10*3 (01/16/15 9:08 [...] Document Reviewed: 03/21/2014 ExitCare Patient Information 2015 [email or web address]. This information is not intended to replace [...] stable at home. BP journal from the [facility] isnormal. Medication refilled for one year as a courtesy. She will need appointments for any further requests. Menopausal symptoms This issue is stable and appropriate refills, lab, and f/ u have been discussed. Seeing Environmental Services Floor Tech for estradiol. Neuropathy This issue is stable and appropriate refills, lab, and f/u have been discussed. Meds offered and declined. The patient has family members present who are agreeable with today's plan and have no additional concerns or requests. Orders: atenolol, 25 mg 1 tabs, Oral, Daily, X 90 days, # 90 tabs, 3 Refill(s ), Pharmacy: [facility], 1 tabs Oral Daily,x90 days simvastatin, 20 mg 1 tabs, Oral, Bedtime (once a day), X 90 days, # 90 tabs, 3 Refill(s), Pharmacy: [facility], 1 tabs Oral Bedtime (once a day),x90 days
--- OUTSIDE RECORDS SUMMARY | 2017-09-26 09:05 | External Medical Summary | Summary of Care ---
:1940 Author Name Zoran Douglass M.D. Address [address] [place] [address] [place] [address] Care Team Providers Name Role Phone Zoran [...] Description Value Details 10-Oct-2015 09:17 URINE CULTURE [id number] Comments: [facility] performed at: [place] [facility], [address] [place], [address], Poultry Cutter: Zoran Bear D.O., MPHQuest Collection Date/Time: [facility] Results Received Date/Time: [id number] Reported Date/Time: [id number] performed at: [facility] [address] [facility], [place], [address], Poultry Cutter: Zoran Bear D.O., MPHQuest Collection Date/Time: [id number] Results Received Date/Time: [id number] Reported Date/Time: [id number] CULTURE, URINE, ROUTINE SEE NOTE Comments: CULTURE, URINE, ROUTINE MICRO NUMBER: [id number] TEST STATUS: FINAL SPECIMEN SOURCE: URINE , [...]
--- OUTSIDE RECORDS SUMMARY | 2017-09-26 09:05 | External Medical Summary | Referral Summary ---
:1939 Author Organization [facility] Address [address] [place] [address] [place] [address] Care Team Providers Name Role Phone Doni Baltazar Primary Care Physician Encounter VC Date(s): 01/16/15 - 01/16/15 [facility] [address] [place] [address] [place] Discharge Disposition: [...] # 90 tabs, 3 Refill(s), Pharmacy: [facility], 1 tabs Oral Daily,x90 days Start [...] days, # 90 tabs, 3 Refill(s), Pharmacy: [facility], 1 tabs Oral Bedtime (once a [...] [0.80-3.30 10*3] 2.00 10*3 (01/16/15 9:08 AM) [facility] [0.30-1.00 10*3] 0.59 10*3 (01/16/15 9:08 [...] Document Reviewed: 03/21/2014 ExitCare Patient Information 2015 Trust Metrics. This information is not intended to replace [...] stable at home. BP journal from the [facility] isnormal. Medication refilled for one year as a courtesy. She will need appointments for any further requests. Menopausal symptoms This issue is stable and appropriate refills, lab, and f/ u have been discussed. Seeing Rheumatology Nurse for estradiol. Neuropathy This issue is stable and appropriate refills, lab, and f/u have been discussed. Meds offered and declined. The patient has family members present who are agreeable with today's plan and have no additional concerns or requests. Orders: atenolol, 25 mg 1 tabs, Oral, Daily, X 90 days, # 90 tabs, 3 Refill(s ), Pharmacy: [facility], 1 tabs Oral Daily,x90 days simvastatin, 20 mg 1 tabs, Oral, Bedtime (once a day), X 90 days, # 90 tabs, 3 Refill(s), Pharmacy: [facility], 1 tabs Oral Bedtime (once a day),x90 days
--- OUTSIDE RECORDS SUMMARY | 2017-09-26 09:05 | External Medical Summary | Referral Summary ---
:1939 Author Organization [facility] Address [address] [place] [address] [place] [address] Care Team Providers Name Role Phone Doni Baltazar Primary Care Physician Encounter VC Date(s): 01/16/15 - 01/16/15 [facility] [address] [place] [phone] [place] Discharge Disposition: [...] days, # 90 tabs, 3 Refill(s), Pharmacy: [facility], 1 tabs Oral Daily,x90 days Start [...] days, # 90 tabs, 3 Refill(s), Pharmacy: [facility], 1 tabs Oral Bedtime (once a [...] [0.80-3.30 10*3] 2.00 10*3 (01/16/15 9:08 AM) [facility] [0.30-1.00 10*3] 0.59 10*3 (01/16/15 9:08 [...] Document Reviewed: 03/21/2014 ExitCare Patient Information 2015 [email or web address]. This information is not intended to replace [...] stable at home. BP journal from the [employer] isnormal. Medication refilled for one year as a courtesy. She will need appointments for any further requests. Menopausal symptoms This issue is stable and appropriate refills, lab, and f/ u have been discussed. Seeing Coding Auditor for estradiol. Neuropathy This issue is stable and appropriate refills, lab, and f/u have been discussed. Meds offered and declined. The patient has family members present who are agreeable with today's plan and have no additional concerns or requests. Orders: atenolol, 25 mg 1 tabs, Oral, Daily, X 90 days, # 90 tabs, 3 Refill(s ), Pharmacy: [facility], 1 tabs Oral Daily,x90 days simvastatin, 20 mg 1 tabs, Oral, Bedtime (once a day), X 90 days, # 90 tabs, 3 Refill(s), Pharmacy: [facility], 1 tabs Oral Bedtime (once a day),x90 days
--- OUTSIDE RECORDS SUMMARY | 2017-09-26 09:05 | External Medical Summary | Summary of Care ---
:1940 Author Name Zoran Douglass M.D. Address [address] [place] [address] [place] [address] Care Team Providers Name Role Phone Zoran Douglass M.D. Unavailable Unavailable Doin Baltazar Primary Care Provider Unavailable Unavailable Unavailable [...] With Removal Of Both Ovaries URINE CULTURE [id number] Ordered:07-Oct-2015 Immunization Name Dates Details Immunizations not documented [...] Encounters Appointment; Provider: Zoran Douglass On 16-Oct-2015 10:30 Instructions Instructions not documented Encounters Appointment; Zoran Douglass On 07-Oct-2015 Encounter Diagnosis: Problem not documented 10:45 Appointment; Zoran Douglass On 18-Sep-2015 Encounter Diagnosis: Problem not documented 14:30 Appointment; Zoran Douglass On 14-Aug-2015 Encounter Diagnosis: Problem not documented 13:45 Appointment; Zorna Douglass On 22-Jul-2015 Encounter Diagnosis: Problem not documented 15:00 Appointment; Zoran Douglass On 12-Jun-2015 Encounter Diagnosis: Problem not documented 11:00 Appointment; Zoran Douglass On 22-May-2015 Encounter Diagnosis: Problem not documented 13:15
--- OUTSIDE RECORDS SUMMARY | 2017-09-26 09:05 | External Medical Summary | Summary of Care ---
:1940 Author Name Zoran Douglass M.D. Address [address] [place] [address] [place] [address] Care Team Providers Name Role Phone Zoran [...] With Removal Of Both Ovaries URINE CULTURE [id number] Ordered:22-Jul-2015 Immunization Name Dates Details Immunizations not [...]
--- NOTE | 2017-09-26 09:43 | Emergency Department Report ---
General Adult HPI - General Chief complaint: Medical Emergency Stated complaint: High BP; balance issues Time Seen by Provider: 09/26/17 08:53 Source: patient Mode of arrival: ambulatory Limitations: no limitations - History of Present Illness HPI narrative: 77-year-old female presents to the emergency department with a chief complaint of feeling slightly off balance with ambulation and hypertension. She denies any pain or discomfort. She denies any recent changes in her blood pressure medications. She was at home when she noted onset of her symptoms early this morning. No other complaints or associated symptoms. She notes that her symptoms improve with rest and relaxation. - Related Data Home Medications Medication Instructions Recorded Confirmed Estrace (estradiol) 0.5 mg tablet 0.5 mg PO HS 06/18/17 09/26/17 Zocor (simvastatin) 20 mg tablet 20 mg PO HS 06/18/17 09/26/17 aspirin 81 mg tablet,delayed 81 mg PO HS 06/18/17 09/26/17 release tenormin (atenolol) 25 mg tablet 25 mg PO HS 06/18/17 09/26/17 Acetaminophen [Tylenol] 1,000 mg PO PRN PRN 09/26/17 09/26/17 cycloSPORINE [Restasis Multidose] 1 drop EACH EYE DAILY 09/26/17 09/26/17 Allergies Allergy/AdvReac Type Severity Reaction Status Date / Time mercury (elemental) Allergy Unknown Rash Verified 09/26/17 09:39 Penicillins Allergy Unknown Rash Verified 09/26/17 09:39 Sulfa (Sulfonamide Allergy Rash Verified 09/26/17 09:39 Antibiotics) Review of Systems Constitutional: Denies: fever, chills Eyes: Denies: eye pain, vision change ENT: Denies: ear pain, throat pain Cardiovascular: Denies: chest pain, palpitations Respiratory: Denies: cough, dyspnea Gastrointestinal: Denies: abdominal pain, nausea, vomiting, diarrhea Genitourinary: Denies: urgency, dysuria Musculoskeletal: Denies: back pain, arthralgia Integumentary: Denies: erythema, rash Neurological: Denies: headache, numbness, paresthesias Psychiatric: Denies: anxiety, depression Endocrine: Denies: polydipsia, polyuria Hematological/Lymphatic: Denies: easy bruising, lymphadenopathy Allergic/Immunologic: Denies: facial swelling, urticaria PFSH Patient Stated Medical History Cataracts Yes Hypertension Yes Hx Urinary Tract Infection Yes Osteoarthritis Yes Clinic Medical History (Last Reviewed 06/18/17 @ 12:15 by Nanci Woodruff MD) Neuropathy (Chronic Medical) Cataract (Chronic Medical) Hypercholesterolemia (Chronic Medical) Hypertension (Chronic Medical) Surgical History: -Cataract Removal. -Hysterectomy - 1990. -Tonsillectomy - 1949 Family History: Family History (Last Reviewed 06/18/17 @ 12:15 by Nanci Woodruff MD) Mother High blood pressure Father COPD (chronic obstructive pulmonary disease) High blood pressure Diabetes Heart attack - Social History Smoking status: Former smoker Substance use type: does not use Alcohol intake: never Household members: spouse Current occupational status: retired Physical Exam - Limitations Limitations: no limitations - General General appearance: alert, in no apparent distress - Normal Exams: Head:: Normocephalic without trauma Eyes:: Pupils are PERRLA w/ EOMI, No scleral icterus, irritation, or foreign bodies noted ENMT:: No facial trauma, nasal exudates, pharyngeal erythema, or exudates are noted Dental: No fractured, loose, or missing teeth noted Neck:: Full range of motion, without adenopathy, JVD, bruits or thyromegaly Chest/Respirations:: Clear all mackey, with good airflow, and symmetry bilaterally Cardiovascular:: Regular rate and rhythm, without murmur or gallop, Pulses 2+ all extremities, capillary refill, <2 seconds all extremities Abdomen:: Bowel sounds positive, soft, non-tender, non-distended, no hepatosplenomegaly, masses or bruits noted Lymphatic:: No lymphadenopathy, or lymphedema noted Musculoskeletal:: No tenderness, or deformity noted, good range of motion, all extremities Integumentary:: No rashes, hives, or bruising noted, hair and nails, without abnormality Neurological:: Patient is alert (alert and oriented 3. CN 2-12 Intact. Normal Speech. Normal sensation. Gait with patient falling to Left. Normal coordination. Normal strength. Absent Babinski bilaterally. Reflexes 2/4 in all extremities. No focal deficit.), and oriented, cranial nerves, motor/ sensory/cerebellar, exams w/o gross deficits, to observation Psychiatric:: Patient exhibits, appropriate attention, emotion and affect Course Vital Signs Temperature 98.2 F 09/26/17 08:37 Pulse Rate 71 09/26/17 08:37 Respiratory Rate 20 09/26/17 08:37 Blood Pressure 201/93 H 09/26/17 08:37 Pulse Oximetry 95 09/26/17 08:37 Temperature 97.0 F 09/26/17 12:44 Pulse Rate 84 09/26/17 12:44 Respiratory Rate 18 09/26/17 12:44 Blood Pressure 131/72 09/26/17 12:44 Pulse Oximetry 90 09/26/17 12:44 Medical Decision Making - [facility] Narrative Medical decision making narrative: Labs / Imaging were discussed in detail with the patient and family and questions are answered. She is given 500 mL of normal saline intravenously times one. She is given meclizine 25 mg by mouth times one. She has not noted any improvement with her symptoms. She is still off balance and seems to lean more to the left consistently. She is given 324 mg of aspirin by mouth times one. She was given clonidine 0.1 mg by mouth 1 with some improvement of hypertension. She will be allowed to have permissive hypertension until ischemic insult is ruled out. Patient is in agreement with the current plan of management. She is admitted to the hospital in improved condition. She is discussed with Dr. Myers and will be admitted to his service in improved condition. - Differential Diagnosis UTI, Metabolic disorder, TIA, CVA - Lab Data Result diagrams: 09/26/17 08:57 09/26/17 08:57 Lab Results 09/26/17 09/26/17 09/26/17 Range/Units 08:57 08:57 10:19 WBC 5.9 (4.5-11.0) T/MM3 RBC 4.43 (4.00-5.20) M/MM3 Hgb 12.8 (12-16) GM/DL Hct 38.8 (36-46) % MCV 87.6 (80-100) UM3 MCH 28.9 (26-34) UUG MCHC 33.0 (31-37) GM/DL RDW Std Deviation 41.6 (36.9-50.2) FL Plt Count 217 (130-400) T/MM3 MPV 9.7 (9.4-12.4) UM3 Immature Gran % (Auto) 0.2 (0.0-0.5) % Neut % (Auto) 49.3 (33-66) % Lymph % (Auto) 39.0 (23-45) % Douglas % (Auto) 8.2 (0-9.0) % Eos % (Auto) 2.4 (0-4) % Baso % (Auto) 0.9 (0-2) % Neut # (Auto) 2.9 (1.8-7.7) T/MM3 Lymph # (Auto) 2.3 (1-4.8) T/MM3 Douglas # (Auto) 0.5 (0-0.8) T/MM3 Eos # (Auto) 0.1 (0-0.5) T/MM3 Baso # (Auto) 0.1 (0-0.2) T/MM3 Abs Immat Gran (auto) 0.01 (0.00-0.03) T/MM3 Turbidity < 20 (0-20) Sodium 144 (134-144) MEQ/L Potassium 3.9 (3.6-5) MEQ/L Chloride 109 H (98-107) MEQ/L Carbon Dioxide 24 (22-30) MEQ/L Anion Gap 11 (5-15) MEQ/L BUN 17.0 (7-17) MG/DL Creatinine 0.8 (0.7-1.2) mg/dL GFR Calculation 69 BUN/Creatinine Ratio 21 (6-26) RATIO Glucose 109 (65-110) MG/DL Calculated Osmolality 280 (261-280) MOSM/KG Calcium 9.3 (8.4-10.2) MG/DL Total Bilirubin 0.50 (0.20-1.30) MG/DL Icterus Index < 2 (0-7) AST 26 (14-36) U/L ALT 24 (1-35) U/L Alkaline Phosphatase 110 (38-126) U/L Troponin I < 0.012 (0-0.12) ng/ml Total Protein 7.1 (6.3-8.2) g/dL Albumin 4.0 (3.5-5.0) g/dL Globulin 3.1 (2.4-3.6) G/DL Albumin/Globulin Ratio 1.3 (1.1-2.2) RATIO Specimen Hemolysis < 15 (0-25) Ur Collection Type Urine, void-cc/notcc Urine Color Yellow (YELLOW) Urine Clarity Clear Urine pH 6.5 (5.0-8.0) Ur Specific [place] 1.015 (1.015-1.025) Urine Protein Negative (NEGATIVE) Urine Glucose (UA) Negative (NEGATIVE) Urine Ketones Negative (NEGATIVE) Urine Occult Blood Negative (NEGATIVE) Urine Nitrate Negative (NEGATIVE) Urine Bilirubin Negative (NEGATIVE) Urine Urobilinogen 0.2 (NORMAL) EU/DL Ur Leukocyte Esterase Negative (NEGATIVE) Urinalysis Comment Microscopic not ind. - Radiology Data CXR - No acute processes. CT HEAD - No acute processes. - EKG Data EKG #1 EKG results narrative: Sinus rhythm. 71 bpm. No STEMI. Disposition Clinical Impression: Difficulty Ambulating, Ataxic gait Disposition: 02 To [facility] Condition: Stable Time of Disposition: 11:30 - Seen By: physician
[2017-09-26] MEDS ORDERED: MECLIZINE 25 MG TABLET PO ONE (10:41)
[2017-09-26] MEDS ORDERED: ASPIRIN 81 MG CHEWABLE TABLET PO ONE (11:43)
[2017-09-26] MEDS ORDERED: HYDRALAZINE 20 MG/ML INJECTION IVP ONE (11:44)
[2017-09-26] MEDS ORDERED: ACETAMINOPHEN 325 MG TABLET PO PRN (14:39)
[2017-09-26] MEDS ORDERED: MECLIZINE 12.5 MG TABLET PO PRN (14:52)
--- NOTE | 2017-09-26 14:52 | History & Physical Report ---
History of Present Illness Date: 09/26/17 Chief complaint: Gait instability HPI: Luna is a very well-appearing 77 yo WF who awoke this morning with sudden onset gait instability. She reports not feeling overtly dizzy, but when she stood up, she felt very unstable and had to hold onto the wall to walk. She checked her BP, and it was quite high, which is unusual for her. She has no prior history of stroke or TIA. She reports that she did not experience any speaking difficulty or confusion, but her son noted when he was on the phone with her, that he felt her speech was slurred a bit. She came into the ER, where preliminary stroke w/u was negative. She again attempted to walk, and again was very unsteady and could not walk unassisted. Due to this concern, she is placed into observation status for further evaluation. Patient denies feeling ill. No sinus congestion, allergies, viral symptoms, etc. No cough, congestion. No chest pain. No cardiac history. No edema. She is not dizzy when lying down, but reports her main concern is gait instability when standing. She does not describe symptoms of the room spinning, etc. Last known well at bedtime last night. D/W her son and [id number] at length. He is concerned that she may need transfer to higher level of care due to concern for TIA or stroke. Patient cannot determine when her last known well was- symptom onset when getting up after sleep this morning. She does not demonstrate any focal weakness or speech deficit, therefore, I do not believe she would qualify for consideration of tPA or IR therapies. Discussed that tPA can be a risky therapy, so risk/benefit consideration would not lead us to consider tPA in this scenario. Would recommend an MRI, carotid doppler, and echo, but likely would be safe to administer those tests tomorrow, as we will follow the same treatment plan either way. She takes a low dose ASA at home- discussed that we will increase to full strength. Continue home statin, check FLP. We discussed neuro monitoring plan, etc. Continue telemetry to R/O atrial fib. Patient and son/family is in agreement with continuing care at [facility] at this time. Review of Systems All systems PM: 10-point ROS was reviewed, no additional remarkable complaints except - Constitutional Constitutional: Absent: chills, headache(s) - EENMT Eyes: Absent: blurry vision, change in vision Ears: Absent: tinnitus Balance: Present: falling to one side, ataxia. Absent: vertigo - Cardiovascular Cardiovascular: Absent: chest pain, palpitations, syncope, edema, heart murmur - Respiratory Respiratory: Absent: cough, dyspnea - Gastrointestinal Gastrointestinal: Absent: abdominal pain, diarrhea, nausea, vomiting - Musculoskeletal Musculoskeletal: Present: abnormal gait. Absent: limited range of motion, muscle weakness, neck pain - Neurological Neurological: Present: abnormal gait, abnormal speech (possible), lack of coordination. Absent: confusion, convulsions, focal weakness, loss of vision, memory loss, numbness, paresthesias, vertigo Neurological Comments: She denies vertigo, mostly gait instability. - Psychiatric Psychiatric: Absent: anxiety, difficulty concentrating, hallucinations - Endocrine Endocrine: Absent: palpitations Past Medical History Medical History: Medical History (Last Updated 09/26/17 @ 15:01 by Amairani Colunga APRN) Neuropathy (Chronic) Cataract (Chronic) Hypercholesterolemia (Chronic) Hypertension (Chronic) Diverticulosis Surgical History: -Cataract Removal. -Hysterectomy - 1990. -Tonsillectomy - 1949 Family History: Family History (Last Reviewed 06/18/17 @ 12:15 by Nanci Woodruff MD) Mother High blood pressure Father COPD (chronic obstructive pulmonary disease) High blood pressure Diabetes Heart attack Family History: As Above - Social History Smoking status: Former smoker Substance use type: does not use Alcohol intake frequency: does not drink Household members: spouse Current residence: Apartment/Private Home Medications Home Medications Medication Instructions Recorded Confirmed Type Estrace (estradiol) 0.5 mg tablet 0.5 mg PO HS 06/18/17 09/26/17 History Zocor (simvastatin) 20 mg tablet 20 mg PO HS 06/18/17 09/26/17 History aspirin 81 mg tablet,delayed 81 mg PO HS 06/18/17 09/26/17 History release tenormin (atenolol) 25 mg tablet 25 mg PO HS 06/18/17 09/26/17 History Acetaminophen [Tylenol] 1,000 mg PO PRN PRN 09/26/17 09/26/17 History cycloSPORINE [Restasis Multidose] 1 drop EACH EYE DAILY 09/26/17 09/26/17 History Allergies Allergy/AdvReac Type Severity Reaction Status Date / Time mercury (elemental) Allergy Unknown Rash Verified 09/26/17 09:39 Penicillins Allergy Unknown Rash Verified 09/26/17 09:39 Sulfa (Sulfonamide Allergy Rash Verified 09/26/17 09:39 Antibiotics) Exam Vital Signs: Temperature 97.0 F 09/26/17 12:44 Pulse Rate 84 09/26/17 12:44 Respiratory Rate 18 09/26/17 12:44 Blood Pressure 131/72 09/26/17 12:44 Pulse Oximetry 90 09/26/17 12:44 Telemetry Rhythm: Sinus Rhythm - Constitutional Present: no acute distress, well nourished, well developed, average body habitus , cooperative - Routine HEENT Exam Head: Present: normocephalic, atraumatic Eye: Present: EOMI, PERRL. Absent: conjunctival icterus ENT: Present: mucous membranes moist - Routine Neck Exam Present: supple, trachea midline. Absent: JVD, tenderness - Routine Respiratory Exam Present: CTA bilaterally. Absent: rales, rhonchi, stridor, wheezes, crackles - Routine Cardiovascular Exam Present: RRR, S1, S2, no murmur. Absent: S3, S4 - Routine Abdominal Exam Present: soft, normoactive bowel sounds, non distended, non tender - Routine Extremities Exam Present: no edema, non tender, full ROM, pulses intact, normal capillary refill. Absent: calf tenderness, Chau's sign - Routine Skin Exam Present: intact, dry, warm - Routine Neurological Exam Present: alert (Heel-ng testing is normal bilaterally. Rapid finger-thumb alternating movements are normal. ), oriented X3, CN II-XII intact, abnormal gait (reported. I did not attend to ambulate patient), moving all extremities, normal tone, vision grossly intact, hearing grossly intact, normal speech. Absent: sensory deficit, motor deficit, pronator drift, altered mental status, nystagmus, hemineglect, facial asymmetry, tremors, asterixis - Routine Psychiatric Exam Present: normal affect, normal thought process, cooperative, good insight, good judgment Results - Labs CBC & Chem 7: 09/26/17 08:57 09/26/17 08:57 - ECG Data Tracing #1 I reviewed this ECG and interpreted as documented below: ECG normal with no acute: arrhythmias, ischemia, conduction abnormalities, chamber hypertrophy - Imaging and Cardiology CT scan - head Status: image reviewed by me, pending Additional comments: Per [facility]- no evidence of stroke or bleed, Possible small vessel disease. Chest x-ray Status: image reviewed by me, pending (CXR-normal) Assessment and Plan Assessment and Plan: Impression: Persistent gait instability -suspect TIA vs. Stroke given co-morbid severe HTN -less likely inner ear process Acute on chronic hypertension Hypertensive emergency (+neuro symptoms), resolved. HLDM Chronic HRT Plan: 09/26/17 Suspect cerebellar TIA vs small stroke given symptoms. Observation status, Dr. Myers Stroke protocol. MRI/Echo/Carotid doppler in AM. Increase ASA 81mg to 325mg. Continue home statin for now. Assess lipid panel in AM. Assess TSH as well. Tele to monitor heart rhythm, r/o arrhythmia. Will allow PRN meclizine, but she denies really feeling dizzy, as much as just gait changes. Hold atenolol for now, avoid excessive lowering. Should likely consider DC of HRT given possible thrombotic event. D/W pt and family at length. They agree with POC. Son is employed as pharmaceutical rep for [employer] therapy- discussed medical options at length today. DVT Prophylaxis: Lovenox Resuscitation Status: Full Code - Time spent with patient Time with patient PN: 35 minutes Coordination of Care: >50% of visit spent providing counseling/coordination of care - Physician Narrative Physician: Mil Myers MD Narrative: Date: 09/26/17 Time: 1754 I have independently evaluated and examined this patient. I reviewed the chart, the patient's history, and the TIRE INSPECTOR/PA's documented findings as above. We discussed and formulated the assessment and plan as above with additions as below: 77 yo who upon awakening this morning had trouble with her balance. When stepping forward she had to lean on the wall to prevent a fall. She presented to the ER with a normal neuro exam except that when she stood up to walk she veered to her left into the ER physician. Patient's initial BP was elevated here. It was also high when she checked it at home. Patient denies any recent illness. She has not had any chest pains. She takes an 81 mg ASA daily. She has been on estradiol 0.5 mg qHS for 30 years, and she no longer remembers why she is on it. She does know she has been told she can stop it. She says her vision is a little blurry, but that is not new. She thinks it is because of dry eyes. Gen- NAD. HEENT-eomi, perrl. Neck-supple, trachea midline. CV- s1,s2 rrr w/o m,r,g. Lungs- ctab. Abd- s/nt/nd +bs. Ext- no c,c,e. Neuro- CNII-XII grossly intact. Motor 5/5 in all extremities. Sensation is intact. On gait testing patient falls off to the left when stepping forward with her left leg. Patient has been placed in observation. TIA/stroke work up started. ASA increased to 325. Switch to high-intensity statin therapy wit Lipitor 80 mg. Atenolol is on hold for now. Will avoid tight BP control at this point. Will DC estradiol. PT/OT consult Hospital Course Summary Disclaimer: The visit summary below is not to be considered part of the above Progress Note. Hospital Course: Impression: Persistent gait instability -suspect TIA vs. Stroke given co-morbid severe HTN -less likely inner ear process Acute on chronic hypertension Hypertensive emergency (+neuro symptoms), resolved. HLDM Chronic HRT Plan: 09/26/17 Suspect cerebellar TIA vs small stroke given symptoms. Observation status, Dr. Myers Stroke protocol. MRI/Echo/Carotid doppler in AM. Increase ASA 81mg to 325mg. Continue home statin for now. Assess lipid panel in AM. Assess TSH as well. Tele to monitor heart rhythm, r/o arrhythmia. Will allow PRN meclizine, but she denies really feeling dizzy, as much as just gait changes. Hold atenolol for now, avoid excessive lowering. Should likely consider DC of HRT given possible thrombotic event. D/W pt and family at length. They agree with POC. Son is employed as pharmaceutical rep for [employer] therapy- discussed medical options at length today.
[2017-09-26] MEDS: ASPIRIN 81 MG PO SCH (16:01)
[2017-09-26] MEDS ORDERED: ATORVASTATIN 40 MG TABLET PO SCH (21:00)
[2017-09-26] MEDS ORDERED: POM SIMVASTATIN 20 MG TABLET PO SCH (21:00)
--- NOTE | 2017-09-27 07:32 | CT Scan Report ---
Indication: ams PROCEDURE: CT head/brain wo con: Encounter: Initial Comparison: None Technique: Axial CT images through the head were performed without contrast. Iterative Reconstruction dose reducing technique was utilized. FINDINGS: The ventricles are of normal size, shape, and contour for the patient's age. There are scattered areas of low attenuation in the white matter which most likely represent changes from chronic microvascular ischemia. The brainstem, cerebellum, and cerebral hemispheres otherwise have a normal morphology and CT attenuation. There is no evidence of midline displacement. No hemorrhage, signs of acute territorial stroke, mass effect, mass lesions, or edema is evident. The visualized portions of the skull base, midface, and calvarium demonstrate no abnormality. The paranasal sinuses are well aerated and free of significant disease. The tympanic and mastoid cavities appear normal. IMPRESSION: No acute intracranial abnormality or hemorrhage. There is a preliminary report by [facility]. .
[2017-09-27 07:48] VITALS: BP 142/75; PULSE 67; RESP 20; TEMP 97.1; O2SAT 96
[2017-09-27] MEDS: ASPIRIN 81 MG PO SCH (08:21)
[2017-09-27] MEDS ORDERED: ENOXAPARIN 40 MG/0.4 ML INJECTION SQ SCH (09:00)
[2017-09-27] MEDS ORDERED: CycloSPORINE 0.05% EYE DROPS 4ml EACH EYE SCH (09:00)
--- NOTE | 2017-09-27 09:09 | Magnetic Resonance Report ---
EXAM: MR head/brain wo con INDICATION: TIA, vertigo COMPARISON: CT head dated 09/26/2017. TECHNIQUE: Multiplanar multipulse sequence imaging of the brain was performed. No contrast was administered. Findings: No abnormal diffusion restriction or intracranial hemorrhage is evident. T2 FLAIR signal abnormalities are present throughout the periventricular and subcortical white matter with no evidence of a space-occupying mass or shift of midline structures. The ventricles are normal in size and shape. The visualized paranasal sinuses and mastoid air cells are clear. Impression: 1. No acute intracranial process. 2. T2 FLAIR signal abnormalities throughout the periventricular and subcortical white matter most likely on the basis of chronic ischemic microvascular disease. .
--- NOTE | 2017-09-27 10:45 | Ultrasound Report ---
EXAM: US carotid doppler BI DATE: 09/27/2017 12:00 AM INDICATION: r/O Stroke COMPARISON: None available. TECHNIQUE: Real-time high resolution ultrasound evaluation was performed using valerio-scale as well as spectral and color flow Duplex Doppler. FINDINGS: There is minimal plaque formation bilaterally. The carotid arteries are grossly patent. The waveforms are unremarkable. Peak systolic and end-diastolic velocities (units are cm/sec) are listed below: RIGHT CAROTIDS: There is peak systolic velocity within the internal carotid artery of 94 cm/s and a peak end-diastolic velocity 15 cm/s. ICA/CCA Ratio: 0.8 Antegrade flow seen in the right vertebral artery. LEFT CAROTIDS: There is a peak systolic velocity within the internal carotid artery of 81 cm/s as well as a peak end-diastolic velocity of 14 cm/s. ICA/CCA Ratio: 1.1 Antegrade flow seen in the left vertebral artery. A 2.1 x 1.7 cm nodule is present within the right thyroid lobe. IMPRESSION: 1. No significant stenosis or occlusion on either side. 2. Right thyroid nodule. A dedicated thyroid ultrasound may be obtained for further evaluation. .
--- NOTE | 2017-09-27 11:31 | XRay Report ---
EXAM: XR chest 1V COMPARISON: Chest x-ray dated 01/05/2014. HISTORY: htn . FINDINGS: The lungs are clear. There is no pneumothorax or pleural effusion. The cardiac silhouette is stable and the pulmonary vasculature is within normal limits. No mediastinal abnormality is present. IMPRESSION: No acute pulmonary process. .
--- NOTE | 2017-09-27 13:44 | Progress Note ---
- Date 09/27/17 Subjective: F/U: Persistent gait instability (resolved) - suspect TIA Doing much better today. Walking ability improved-not feeling dizzy, unsteady, or weak with ambulation. Vision doing well. Communication stable. No HERNANDEZ. No ab pain or nausea. Breathing well. No chest pressure or pain. Objective Vital signs: Temperature 97.1 F 09/27/17 07:47 Pulse Rate 67 09/27/17 07:47 Respiratory Rate 20 09/27/17 07:47 Blood Pressure 142/75 H 09/27/17 07:47 Pulse Oximetry 96 09/27/17 07:47 Height/Weight/BMI: Weight 76.5 kg - Constitutional Present: no acute distress, well nourished, well developed, average body habitus , cooperative - Routine HEENT Exam Head: Present: normocephalic, atraumatic Eye: Present: EOMI, PERRL ENT: Present: mucous membranes moist - Routine Respiratory Exam Present: CTA bilaterally. Absent: rales, respiratory distress, rhonchi, wheezes , crackles - Routine Cardiovascular Exam Present: RRR, no murmur - Routine Abdominal Exam Present: soft, normoactive bowel sounds, non distended, non tender - Routine Extremities Exam Present: no edema, pulses intact. Absent: cyanosis, clubbing - Routine Musculoskeletal Exam Musculoskeletal: Present: no clubbing or cyanosis, normal strength - Routine Skin Exam Present: dry, warm - Routine Neurological Exam Present: alert, oriented X3, CN II-XII intact, moving all extremities, vision grossly intact, hearing grossly intact, normal speech. Absent: motor deficit, altered mental status - Routine Psychiatric Exam Present: normal affect, normal thought process, cooperative Results - Labs CBC & Chem 7: 09/26/17 08:57 09/27/17 04:56 Assessment and Plan Assessment and Plan: Impression Persistent gait instability - resolved -TIA -- no abnormality noted on MRI of brain Acute on chronic hypertension Hypertensive emergency (+neuro symptoms), resolved. HLD Chronic HRT Right thyroid nodule noted on carotid Doppler Plan Clinically improved. Doing well with therapy. Functioning at baseline. Can discharge to home as medically stable. Discussed anticoagulation with patient: As event occurred with ASA therapy, would recommending changing to Plavix to 75mg daily. Recommend increasing simvastatin to 40mg nightly to improve stroke prevention. Can discontinue hormonal replacement therapy - could taper off using 1 tablet 3 times a week for 1 month before stopping. Recommend Calcium with Vitamin D 600/400mg BID and Vit D (cholecalciferol) 5000 units daily. Outpatient bone density evaluation if not already done. F/U with Dr Baltazar in 1 week for medical evaluation. ECHO pending - can follow up with Dr Baltazar for results. F/U with Dr Sanchez for cardiac evaluation - ? underlying rhythm disturbance predisposing pt to cerebral events. See orders for details Case discussed with family. Time spent with care and discharge greater than 30 minutes. DVT Prophylaxis: SCD's Resuscitation Status: Full Code - Physician Narrative Physician: Guillermo Rader MD Narrative: Date: 09/27/17 Time: 1341 Hospital Course Summary Disclaimer: The visit summary below is not to be considered part of the above Progress Note. Hospital Course: 09/26/17 Observation status, Dr. Myers. Suspect cerebellar TIA vs small stroke given symptoms. Stroke protocol. MRI/Echo/Carotid doppler in AM. Increase ASA 81mg to 325mg. Continue home statin for now. Assess lipid panel in AM. Assess TSH as well. Tele to monitor heart rhythm, r/o arrhythmia. Will allow PRN meclizine, but she denies really feeling dizzy, as much as just gait changes. Hold atenolol for now, avoid excessive lowering. Should likely consider DC of HRT given possible thrombotic event. D/W pt and family at length. They agree with POC. Son is employed as pharmaceutical rep for [employer] therapy- discussed medical options at length today. 09/27/17 Clinically improved. Doing well with therapy. Functioning at baseline. Can discharge to home as medically stable. Discussed anticoagulation with patient: As event occurred with ASA therapy, would recommending changing to Plavix to 75mg daily. Recommend increasing simvastatin to 40mg nightly to improve stroke prevention. Can discontinue hormonal replacement therapy - could taper off using 1 tablet 3 times a week for 1 month before stopping. Recommend Calcium with Vitamin D 600/400mg BID and Vit D (cholecalciferol) 5000 units daily. Outpatient bone density evaluation if not already done. F/U with Dr Baltazar in 1 week for medical evaluation. ECHO pending - can follow up with Dr Baltazar for results. F/U with Dr Sanchez for cardiac evaluation - ? underlying rhythm disturbance predisposing pt to cerebral events. See orders for details
--- NOTE | 2017-09-27 14:10 | Discharge Summary ---
Discharge Information Date of admission: 09/26/17 12:22 Anticipated date of discharge: 09/27/17 Attending Physician: Guillermo Rader MD Primary care physician: Doni Baltazar MD Consults: PT/OT Discharge diagnosis Persistent gait instability - resolved -TIA -- no abnormality noted on MRI of brain Associated conditions and complications TIA Acute on chronic hypertension Hypertensive emergency (+neuro symptoms), resolved. HLD Chronic HRT Right thyroid nodule noted on carotid Doppler - Procedures Procedures: ECHO taken - results pending - Laboratory Labs: Admit Lab 09/26/17 08:57 WBC 5.9 Hgb 12.8 Hct 38.8 MCV 87.6 Plt Count 217 Neut % (Auto) 49.3 Lymph % (Auto) 39.0 [place] % (Auto) 8.2 Eos % (Auto) 2.4 Baso % (Auto) 0.9 Admit Lab 09/26/17 09/26/17 04:57 08:57 Sodium 144 Potassium 3.9 Chloride 109 H Carbon Dioxide 24 Anion Gap 11 BUN 17.0 Creatinine 0.8 GFR Calculation 69 BUN/Creatinine Ratio 21 Glucose 109 Calculated Osmolality 280 Calcium 9.3 Total Bilirubin 0.50 AST 26 ALT 24 Alkaline Phosphatase 110 Troponin I < 0.012 Total Protein 7.1 Albumin 4.0 Globulin 3.1 Albumin/Globulin Ratio 1.3 TSH 1.54 Lipid Profile 09/27/17 04:56 Triglycerides 102 Cholesterol 145 LDL Cholesterol, Calc 75.6 VLDL Cholesterol 20.4 HDL Cholesterol 49 Cholesterol/HDL Ratio 3.0 09/27/17 04:56 - Radiology Radiology: Date of Exam: 09/26/17 Type of Exam: XR chest 1V FINDINGS: The lungs are clear. There is no pneumothorax or pleural effusion. The cardiac silhouette is stable and the pulmonary vasculature is within normal limits. No mediastinal abnormality is present. IMPRESSION: No acute pulmonary process. Date of Exam: 09/26/17 Type of Exam: CT head/brain wo con FINDINGS: The ventricles are of normal size, shape, and contour for the patient' s age. There are scattered areas of low attenuation in the white matter which most likely represent changes from chronic microvascular ischemia. The brainstem , cerebellum, and cerebral hemispheres otherwise have a normal morphology and CT attenuation. There is no evidence of midline displacement. No hemorrhage, signs of acute territorial stroke, mass effect, mass lesions, or edema is evident. The visualized portions of the skull base, midface, and calvarium demonstrate no abnormality. The paranasal sinuses are well aerated and free of significant disease. The tympanic and mastoid cavities appear normal. IMPRESSION: No acute intracranial abnormality or hemorrhage. Date of Exam: 09/27/17 Type of Exam: MR head/brain wo con Findings: No abnormal diffusion restriction or intracranial hemorrhage is evident. T2 FLAIR signal abnormalities are present throughout the periventricular and subcortical white matter with no evidence of a space- occupying mass or shift of midline structures. The ventricles are normal in size and shape. The visualized paranasal sinuses and mastoid air cells are clear. Impression: 1. No acute intracranial process. 2. T2 FLAIR signal abnormalities throughout the periventricular and subcortical white matter most likely on the basis of chronic ischemic microvascular disease. Date of Exam: 09/27/17 Type of Exam: US carotid Doppler BI FINDINGS: There is minimal plaque formation bilaterally. The carotid arteries are grossly patent. The waveforms are unremarkable. Peak systolic and end-diastolic velocities (units are cm/sec) are listed below: RIGHT CAROTIDS: There is peak systolic velocity within the internal carotid artery of 94 cm/s and a peak end-diastolic velocity 15 cm/s. ICA/CCA Ratio: 0.8 Antegrade flow seen in the right vertebral artery. LEFT CAROTIDS: There is a peak systolic velocity within the internal carotid artery of 81 cm/s as well as a peak end-diastolic velocity of 14 cm/s. ICA/CCA Ratio: 1.1 Antegrade flow seen in the left vertebral artery. A 2.1 x 1.7 cm nodule is present within the right thyroid lobe. IMPRESSION: 1. No significant stenosis or occlusion on either side. 2. Right thyroid nodule. A dedicated thyroid ultrasound may be obtained for further evaluation. History of Present Illness HPI: Luna is a very well-appearing 77 yo WF who awoke this morning with sudden onset gait instability. She reports not feeling overtly dizzy, but when she stood up, she felt very unstable and had to hold onto the wall to walk. She checked her BP, and it was quite high, which is unusual for her. She has no prior history of stroke or TIA. She reports that she did not experience any speaking difficulty or confusion, but her son noted when he was on the phone with her, that he felt her speech was slurred a bit. She came into the ER, where preliminary stroke w/u was negative. She again attempted to walk, and again was very unsteady and could not walk unassisted. Due to this concern, she is placed into observation status for further evaluation. Patient denies feeling ill. No sinus congestion, allergies, viral symptoms, etc. No cough, congestion. No chest pain. No cardiac history. No edema. She is not dizzy when lying down, but reports her main concern is gait instability when standing. She does not describe symptoms of the room spinning, etc. Last known well at bedtime last night. D/W her son and [id number] at length. He is concerned that she may need transfer to higher level of care due to concern for TIA or stroke. Patient cannot determine when her last known well was- symptom onset when getting up after sleep this morning. She does not demonstrate any focal weakness or speech deficit, therefore, I do not believe she would qualify for consideration of tPA or IR therapies. Discussed that tPA can be a risky therapy, so risk/benefit consideration would not lead us to consider tPA in this scenario. Would recommend an MRI, carotid doppler, and echo, but likely would be safe to administer those tests tomorrow, as we will follow the same treatment plan either way. She takes a low dose ASA at home- discussed that we will increase to full strength. Continue home statin, check FLP. We discussed neuro monitoring plan, etc. Continue telemetry to R/O atrial fib. Patient and son/family is in agreement with continuing care at [facility] [place] at this time. For complete details of the H&P refer to that document. Objective Vital signs: Temperature 97.1 F 09/27/17 07:47 Pulse Rate 67 09/27/17 07:47 Respiratory Rate 20 09/27/17 07:47 Blood Pressure 142/75 H 09/27/17 07:47 Pulse Oximetry 96 09/27/17 07:47 Height/Weight/BMI: Weight 76.5 kg Hospital Course This is a general summary of the patient's hospital course. For more details refer to the complete medical record. Hospital course: 09/26/17 Observation status, Dr. Myers. Suspect cerebellar TIA vs small stroke given symptoms. Stroke protocol. MRI/Echo/Carotid doppler in AM. Increase ASA 81mg to 325mg. Continue home statin for now. Assess lipid panel in AM. Assess TSH as well. Tele to monitor heart rhythm, r/o arrhythmia. Will allow PRN meclizine, but she denies really feeling dizzy, as much as just gait changes. Hold atenolol for now, avoid excessive lowering. Should likely consider DC of HRT given possible thrombotic event. D/W pt and family at length. They agree with POC. Son is employed as pharmaceutical rep for [employer] therapy- discussed medical options at length today. 09/27/17 Clinically improved. Doing well with therapy. Functioning at baseline. Can discharge to home as medically stable. Discussed anticoagulation with patient: As event occurred with ASA therapy, would recommending changing to Plavix to 75mg daily. Recommend increasing simvastatin to 40mg nightly to improve stroke prevention. Can discontinue hormonal replacement therapy - could taper off using 1 tablet 3 times a week for 1 month before stopping. Recommend Calcium with Vitamin D 600/400mg BID and Vit D (cholecalciferol) 5000 units daily. Outpatient bone density evaluation if not already done. F/U with Dr Baltazar in 1 week for medical evaluation. ECHO pending - can follow up with Dr Baltazar for results. Can initiate further evaluation of thyroid nodule. F/U with Dr Sanchez for cardiac evaluation - ? underlying rhythm disturbance predisposing pt to cerebral events. See orders for details Time spent with patient: discharge greater than 30 minutes Resuscitation Status: Full Code Discharge Plan - Discharge Disposition Discharge Date: 09/27/17 Disposition: 01 Discharged Home, Self-Care *Condition: Stable Reason For Visit (Visit label in EMR): difficulty with ambulation - Discharge Medications *Discharge Medications: New Calcium Carbonate/Vitamin D3 [Calcium 600-Vit D3 400 Tablet] 1 each PO BID # 1 bottle Cholecalciferol (Vitamin D3) [Vitamin D3] 5,000 unit PO DAILY #1 bottle Clopidogrel [Plavix] 75 mg PO DAILY #30 tab Simvastatin [Zocor] 40 mg PO HS #30 tab Continue Acetaminophen [Tylenol] 1,000 mg PO PRN PRN PRN Reason: Pain cycloSPORINE [Restasis Multidose] 1 drop EACH EYE DAILY tenormin (atenolol) 25 mg tablet 25 mg PO HS Discontinued Zocor (simvastatin) 20 mg tablet 20 mg PO HS Estrace (estradiol) 0.5 mg tablet 0.5 mg PO HS aspirin 81 mg tablet,delayed release 81 mg PO HS - Discharge Packet/Instructions *Diet: Heart healthy diet *Activity: As tolerated *Pain Management/Treatment: Continue prior pain medications *Wound Care: N/A Additional Instructions: Use Plavix (clopidogrel) in place of Aspirin for stroke prevention. May taper off Estrogen - could use 1 tablet 3 times a week, could stop after 3-4 weeks. Start Calcium with Vitamin D 600/400 BID to help bones. Start Vitamin D3 (cholecalciferol) 5000 units daily to help bones. *Expected Signs/Symptoms: Stability of ambulation. *Notify Physician if: Temp > 100.4. New onset weakness or numbness of extremities. Slurring speech. Visual changes. *During Business Hours Contact: Dr Baltazar *After Business Hours Contact: Call [facility] and have Dr Baltazar contacted. *Pending Lab/Results: Follow up w/Provider (ECHO results) - Referrals/Follow Up *Referrals/Follow Up: Doni Baltazar MD [Primary Care Provider] - 1 Week (Hospital follow up for TIA. Check on ECHO results.) Ousmane Clark MD [Physician] - 2 Weeks (Hopsital follow up for TIA - ? further evaluation of heart rhythm. ) - Patient Handouts - Dismissal Complete Discharge Instructions are:: Complete Physician Narrative - Narrative Physician: Guillermo Rader MD Attestation Narrative: Date: 09/27/17 Time: 1400 I have independently interviewed and examined patient prior to discharge. See my progress noted from today for details. Medically stable for discharge to home.
--- NOTE | 2017-09-27 16:21 | Echocardiogram ---
DATE OF PROCEDURE September 27, [address] Mil Myers This is a two-dimensional echo with spectral Doppler, color-flow and M-mode. It was obtained in a patient with TIA. Left atrial dimension is normal. Left ventricle end-diastolic dimension is normal. Left ventricle wall thickness is normal. LV systolic function is normal with ejection fraction of 65%. Right atrium is normal. Right ventricle is normal. Aortic root dimension is normal. Mitral valve annulus is calcified. Mitral valve leaflets are normal with mild mitral regurgitation. Aortic valve is a trileaflet structure with no stenosis. Mild aortic insufficiency is present. Tricuspid valve shows mild tricuspid regurgitation with normal estimated pulmonary artery systolic pressure of 27. Pulmonary valve shows trace of pulmonary insufficiency. There is no pericardial effusion. IMPRESSION 1. Normal LV systolic function with ejection fraction of 65%. 2. Mitral annulus calcification with mild mitral regurgitation. 3. Mild aortic insufficiency. 4. Mild tricuspid regurgitation with normal estimated pulmonary artery systolic pressure of 27. 5. Trace of pulmonary insufficiency. MTDD
== END 2017-09-27 14:50 | disposition home or self-care (01) ==
LOC: ED 08:37 → MED 08:37 → SUATTDRO 12:22 → MED 12:35
PROVIDERS: ADMIT Hospitalist; ATTEND Hospitalist

== ENCOUNTER 2017-11-16 11:26 | Inpatient (IN) ==
--- NOTE | 2017-11-16 11:36 | Emergency Department Report ---
Neuro HPI - General Stated Complaint: high bp, light headed, instability Time Seen by Provider: 11/16/17 11:36 - Related Data Home Medications: Home Medications Medication Instructions Recorded Confirmed tenormin (atenolol) 25 mg tablet 25 mg PO HS 06/18/17 10/08/17 Acetaminophen [Tylenol] 1,000 mg PO PRN PRN 09/26/17 10/08/17 cycloSPORINE [Restasis Multidose] 1 drop EACH EYE DAILY 09/26/17 10/08/17 Lisinopril [Prinivil] 5 mg PO DAILY 10/08/17 10/08/17 Previous Rx's Medication Instructions Recorded Calcium Carbonate/Vitamin D3 1 each PO BID #1 bottle 09/27/17 [Calcium 600-Vit D3 400 Tablet] Cholecalciferol (Vitamin D3) 5,000 unit PO DAILY #1 bottle 09/27/17 [Vitamin D3] Clopidogrel [Plavix] 75 mg PO DAILY #30 tab 09/27/17 Simvastatin [Zocor] 40 mg PO HS #30 tab 09/27/17 Allergies/Adverse Reactions: Allergies Allergy/AdvReac Type Severity Reaction Status Date / Time mercury (elemental) Allergy Unknown Rash Verified 09/26/17 09:39 Penicillins Allergy Unknown Rash Verified 09/26/17 09:39 Sulfa (Sulfonamide Allergy Rash Verified 09/26/17 09:39 Antibiotics) [facility] Patient Stated Medical History Transient Ischemic Attacks ( Yes TIA) Cataracts Yes Hypertension Yes Hx Urinary Tract Infection Yes Osteoarthritis Yes Clinic Medical History (Last Updated 09/26/17 @ 15:01 by Amairani Colunga APRN) Neuropathy (Chronic Medical) Cataract (Chronic Medical) Hypercholesterolemia (Chronic Medical) Hypertension (Chronic Medical) Diverticulosis (Acute Medical) Surgical History: -Cataract Removal. -Hysterectomy - 1990. -Tonsillectomy - 1949 Family History: Family History (Last Reviewed 09/26/17 @ 14:59 by Amairani Colunga APRN) Mother High blood pressure Father COPD (chronic obstructive pulmonary disease) High blood pressure Diabetes Heart attack - Social History Smoking status: Former smoker Substance use type: does not use Alcohol intake: never Alcohol intake frequency: does not drink Household members: spouse Current occupational status: retired Current residence: [facility] Disposition Prescriptions: No Action Acetaminophen [Tylenol] 1,000 mg PO PRN PRN PRN Reason: Pain cycloSPORINE [Restasis Multidose] 1 drop EACH EYE DAILY Calcium Carbonate/Vitamin D3 [Calcium 600-Vit D3 400 Tablet] 1 each PO BID # 1 bottle Cholecalciferol (Vitamin D3) [Vitamin D3] 5,000 unit PO DAILY #1 bottle Clopidogrel [Plavix] 75 mg PO DAILY #30 tab Simvastatin [Zocor] 40 mg PO HS #30 tab Lisinopril [Prinivil] 5 mg PO DAILY tenormin (atenolol) 25 mg tablet 25 mg PO HS Referrals: Doni Baltazar MD [Primary Care Provider] -
[2017-11-16] MEDS ORDERED: HYDRALAZINE 20 MG/ML INJECTION IVP ONE ×2 (11:48→13:25)
[2017-11-16] MEDS: SALINE FLUSH 10ml SYRINGE IVF PRN ×2 (12:12→14:13)
--- NOTE | 2017-11-16 12:16 | CT Scan Report ---
Indication: rule out cerebellar stroke PROCEDURE: CT head/brain wo con: Encounter: Initial Comparison: Head CT dated October 08, 2017 Technique: Axial CT images through the head were performed without contrast. Iterative Reconstruction dose reducing technique was utilized. FINDINGS: The ventricles are of normal size, shape, and contour for the patient's age. There are scattered areas of low attenuation in the white matter which most likely represent changes from chronic microvascular ischemia. The brainstem, cerebellum, and cerebral hemispheres otherwise have a normal morphology and CT attenuation. There is no evidence of midline displacement. No hemorrhage, signs of acute territorial stroke, mass effect, mass lesions, or edema is evident. The visualized portions of the skull base, midface, and calvarium demonstrate no abnormality. The paranasal sinuses are well aerated and free of significant disease. The tympanic and mastoid cavities appear normal. IMPRESSION: No acute intracranial abnormality or hemorrhage. Stable head CT. .
[2017-11-16] MEDS: NS 1,000 ML IV SCH (14:13)
--- NOTE | 2017-11-16 15:29 | History & Physical Report ---
History of Present Illness Date: 11/16/17 Chief complaint: Off balance HPI: Luna Clemente is a 77 y/o woman who has been in very good health until recently. On September 26, she was very unsteady on her feet and extremely hypertensive. She was admitted and underwent a complete stroke workup, which was negative except for a right thyroid nodule. She was discharged with a diagnosis of TIA. Her ASA was changed to Plavix and simvastatin was increased to 40 mg. She was seen again on October 08 for lightheadedness/dizziness with brief chest pain. She was discharged from the ED. She followed up with Dr. Clark and had a [employer] monitor placed approx. 2 weeks ago. She has not had any further chest pain and denies palpitations. On 11/16/17, she first woke up at 0430 and felt fine. When she got up for the day at 0730 she felt wobbly, but not as severe as it was on 09/26/17. She checked her BP, which was elevated. Her vision might have been slightly off but she was able to read the newspaper without much difficulty. She did not have diplopia or blurred vision, but she adds that her vision has been failing for quite a while. After breakfast she rechecked her BP, and it improved. Her said she just didn' t act quite right - no confusion or obvious neuro deficits. She denied vertigo, a headache, unilateral weakness or paresthesias (except from chronic neuropathy in her feet), dysphagia, confusion, or difficulty speaking. She notes chronic tinnitus. She denied difficulty breathing. She denied any recent illness such as fever or chills, cough, URI symptoms, sore throat, allergies, vomiting, diarrhea, constipation, hematochezia, or anorexia. She denies dehydration. She denied any changes in urination. She denied leg swelling, wounds, falls/trauma, or rashes. She called both Dr. Clark's office and Dr. Baltazar's office and ultimately opted to present to the ED for evaluation. CT scan of her head was negative. She was hypertensive, 222/105 but this improved after IV hydralazine. Labs showed mild hypernatremia and transaminitis. ED staff ambulated her to see if she had recurrent lightheadedness. After voiding in the bathroom, she called for help. She felt nauseated and felt like she would pass out. She took some deep breaths and was able to make it into a wheelchair. By the time she arrived in the room, she was unresponsive. An ED RN describes a brief episode of posturing followed by total body stiffening; the ED physician describes total body stiffening with arms outstretched (like a zombie); her son reports that she was stiffened but then one of her arms slowly contorted and went above her head. All report that she was unresponsive. The ED physician reports that she had weak radial pulses and that she nicked her tongue. About 45 seconds later, she was awake and alert and had a normal neurologic exam. Her BP was elevated ( SBP >200) but within 30 minutes it improved. She had no recollection of this event. She did not have bladder incontinence. With this, the ED physician contacted the hospitalist service and the patient was admitted to observation status for further evaluation. Review of Systems All systems PM: 10-point ROS was reviewed, no additional remarkable complaints except - Constitutional Constitutional: Present: as per HPI - EENMT Eyes: Present: as per HPI, requires corrective lenses Ears: Present: as per HPI Balance: Present: as per HPI Nose: Present: as per HPI Mouth/Throat: Present: as per HPI - Cardiovascular Cardiovascular: Present: as per HPI Vascular: Present: see HPI - Respiratory Respiratory: Present: as per HPI - Gastrointestinal Gastrointestinal: Present: as per HPI - Genitourinary Genitourinary: Present: as per HPI - Musculoskeletal Musculoskeletal: Absent: back pain - Integumentary/Breasts Integumentary: Present: as per HPI. Absent: rash - Neurological Neurological: Present: as per HPI - Psychiatric Psychiatric: Present: as per HPI. Absent: anxiety - Endocrine Endocrine: Present: as per HPI - Hematologic/Lymphatic Hematologic/Lymphatic: Present: easy bruising - Allergic/Immunologic Allergic/Immunologic: Present: as per HPI Past Medical History Medical History: Medical History (Last Updated 11/16/17 @ 18:21 by Amada Ceja MD) Neuropathy (Chronic) Cataract (Chronic) Hypercholesterolemia (Chronic) Hypertension (Chronic) TIA (transient ischemic attack) Thyroid nodule right, incidentally noted on carotid Dopplers September 2017 Diverticulosis Surgical History: -Cataract Removal. -Hysterectomy - 1990. -Tonsillectomy - 1949 Family History: Family History (Last Reviewed 09/26/17 @ 14:59 by Amairani Colunga APRN) Mother High blood pressure Father COPD (chronic obstructive pulmonary disease) High blood pressure Diabetes Heart attack Family History Updates: Mother had a stroke at age 96. Father was a smoker and at age 76. She has 2 older brothers and 1 older sister, all living. One is 89 and had colon cancer; the other brother has heart problems. Her sister was adopted. Family History: As Above - Social History Smoking status: Former smoker (quit in 1960; smoked a couple years in high school) Substance use type: does not use Alcohol intake frequency: does not drink Household members: spouse Current occupational status: retired Previous occupational history: infant room teacher; secondary school registrar Social history: PCP: Dr. Baltazar CV: Dr. Clark Medications Home Medications Medication Instructions Recorded Confirmed Type Acetaminophen [Tylenol] 1,000 mg PO PRN PRN 09/26/17 11/16/17 History cycloSPORINE [Restasis Multidose] 1 drop EACH EYE DAILY 09/26/17 11/16/17 History Calcium Carbonate/Vitamin D3 1 each PO BID #1 bottle 09/27/17 11/16/17 Rx [Calcium 600-Vit D3 400 Tablet] Cholecalciferol (Vitamin D3) 5,000 unit PO DAILY #1 bottle 09/27/17 11/16/17 Rx [Vitamin D3] Clopidogrel [Plavix] 75 mg PO DAILY #30 tab 09/27/17 11/16/17 Rx Simvastatin [Zocor] 40 mg PO HS #30 tab 09/27/17 11/16/17 Rx Lisinopril [Prinivil] 5 mg PO DAILY 10/08/17 11/16/17 History Atenolol [Tenormin] 25 mg PO DAILY 11/16/17 11/16/17 History Allergies Allergy/AdvReac Type Severity Reaction Status Date / Time mercury (elemental) Allergy Unknown Rash Verified 11/16/17 12:06 Penicillins Allergy Unknown Rash Verified 11/16/17 12:06 Sulfa (Sulfonamide Allergy Rash Verified 11/16/17 12:06 Antibiotics) Exam Vital Signs: Temperature 98.7 F 11/16/17 11:30 Pulse Rate 81 11/16/17 14:34 Respiratory Rate 16 11/16/17 13:44 Blood Pressure 145/66 H 11/16/17 14:34 Pulse Oximetry 99 11/16/17 14:34 - Constitutional Present: no acute distress, well nourished, well developed - Routine HEENT Exam Head: Present: normocephalic Eye: Present: EOMI, PERRL, scleral injection (slightly). Absent: conjunctival icterus ENT: Present: mucous membranes moist, oropharynx clear, dentition normal, nares patent - Routine Neck Exam Present: supple. Absent: lymphadenopathy - Routine Respiratory Exam Present: CTA bilaterally - Routine Cardiovascular Exam Present: RRR, S1, S2 - Routine Abdominal Exam Present: soft, normoactive bowel sounds, non distended, non tender - Routine Extremities Exam Present: no edema, pulses intact, normal capillary refill. Absent: calf tenderness - Routine Skin Exam Present: intact, dry, warm - Routine Neurological Exam Present: alert, oriented X3, CN II-XII intact, normal reflexes (2/4 patellar, brachioradialis b/l), moving all extremities, normal tone, nystagmus ( fatigueable), vision grossly intact, hearing grossly intact, normal speech. Absent: sensory deficit, motor deficit, altered mental status, facial asymmetry , tremors coordination intact to b/l upper/lower ext. - Routine Psychiatric Exam Present: normal affect, normal thought process, cooperative Results - Labs CBC & Chem 7: 11/16/17 12:23 11/16/17 12:23 - Imaging and Cardiology CT scan - head Status: image reviewed by me Additional comments: no acute findings Assessment and Plan Assessment and Plan: Assessment Syncope vs. seizure Transaminitis, POA Hypernatremia, POA TIA 09/26/17 HTN Hypercholesterolemia Plan Admit, observation status Consult Dr. Pulliam for poss seizure. Consult Dr. Clark for near syncope; eval to see if there were any episodes on [facility]. ?further eval for HTN. BP improved to 156/70. Resume home antiHTN meds. Neuro checks & seizure precautions. Transaminitis - this is new from last admission. Hold statin and assess CPK. Consider liver sono. IVF for hypernatremia. Recheck BMP in am. TSH and lipid panel assessed on 09/26/17. Advanced directives: DNI. Don is primary DPOA; followed by local son and daughter. Previous records reviewed. Discussed with ED providers; Ellen Johnson APRN - she will see pt tomorrow am; and Dr. Pulliam as well. DVT Prophylaxis: SCD's Resuscitation Status: Do Not Intubate - Physician Narrative Physician: Amada Ceja MD Narrative: Date: 11/16/17 Time: 1829 I have independently evaluated and examined this patient. I reviewed the chart, the patient's history, and the PRESSURE WELDER/PA's documented findings as above. We discussed and formulated the assessment and plan as above with additions as below: Mrs. Clemente was seen after arriving on the floor. Shortly after arriving rhythm strips from her [employer] monitor for brought to the floor demonstrating development of bradycardia just after 2 PM corresponding to the time when the patient was nauseated and had transient decreased consciousness/stiffness described in the emergency room. The strips reveal bradycardia evolving to a prolonged pause lasting approximately 20 seconds with one ventricular escape beat before rhythm spontaneously resumed. The patient had voided without straining before onset of the bradycardia arrhythmia/asystole and had developed lightheadedness with severe nausea but no emesis. She does not aware of chest pain around the time of this event although later described some minor chest discomfort which she didn't bother mentioning "because I'm on the monitor". The difficulty with ambulation has improved compared to earlier this morning as has her blood pressure. She denies frequent headaches and did not have one with hypertension this morning and has no history of episodic diaphoresis. NAD, alert, fluent speech 156/70-standing Respirations nonlabored, good airflow, breath sounds clear Regular rhythm, S1 and S2 Abdomen benign [id number] intact/normal bilaterally, sensation intact to light touch lower extremities, motor tone within normal limits lower extremity, raise his legs off the bed symmetrically-can hold up against resistance. Labs reviewed-minor abnormality in liver enzymes, sodium 147, troponin < 0.012 CT head reviewed by myself-unremarkable. [employer] strips reviewed and as described above with sinus rhythm preceding and following the described event Sinus bradycardia/arrest with corresponding loss of consciousness Ambulatory dysfunction, r/o TIA Hypertensive urgency Blood pressure has been dramatically elevated in conjunction with development of ambulatory dysfunction both today and when patient presented 09/26. She does not describe neurological symptoms beyond difficulty walking gait instability. Initial imaging again unremarkable. After Heraclio has recommended repeat MRI after cardiac situation stabilizes. Bradycardia/asystole in the emergency room; apparently not previously described on Po of [employer] monitoring. Corresponded to episode of nausea and patient has been on beta isis but prolonged symptomatic event and will need at least consideration of pacemaker. Preceding nausea but event seems exaggerated for a vagal response. Dr. Clark aware of event and has been consulted. Dopamine infusion if needed. Beta isis discontinued. Zofran available for nausea as needed. Discussed with Dr. Clark/Dr. Pulliam. Discussed with ICU nursing. Old records reviewed. Hospital Course Summary Disclaimer: The visit summary below is not to be considered part of the above Progress Note. Hospital Course: 11/16/17 Admit, observation status Consult Dr. Pulliam for poss seizure. Consult Dr. Clark for near syncope; eval to see if there were any episodes on Po of [employer]. ?further eval for HTN. BP improved to 156/70. Resume home antiHTN meds. Neuro checks & seizure precautions. Transaminitis - this is new from last admission. Hold statin and assess CPK. Consider liver sono. IVF for hypernatremia. Recheck BMP in am. TSH and lipid panel assessed on 09/26/17. Advanced directives: DNI. Don is primary DPOA; followed by local son and daughter. Addendum entered and electronically signed by Norma Lr APRN 11/16/17 16: 23: After signing report I received verbal notification that the patient had a long pause during this event, which was recorded on the [employer] monitor. BB was discontinued. Ellen and Dr. Clark were notified and the patient was transferred to CCU. Will make NPO after midnight.
[2017-11-16 15:50] VITALS: BMI 31.8
[2017-11-16] MEDS ORDERED: ONDANSETRON 4 MG/2 ML INJECTION IVP PRN (16:18)
[2017-11-16] MEDS ORDERED: ONDANSETRON ODT 4 MG TABLET PO PRN (16:45)
[2017-11-16] MEDS ORDERED: DOPamine PREMIX 400 MG/250 ML BAG IV PRN (18:13)
--- NOTE | 2017-11-16 18:13 | Consultation ---
REFERRING PHYSICIAN Dr. Ceja CHIEF COMPLAINT Seizure-like activity and balance problem. HISTORY OF PRESENT ILLNESS Patient is a 77-year-old female with history of intractable hypertension. The patient had several episodes of insidious-onset balance problem with difficulty walking straight and coordination problem since September 2017. She presented to the emergency room on more than one occasion. The patient had an MRI of the brain, carotid Doppler and echocardiogram done in September which showed no significant abnormalities and no signs of stroke at that time. The patient woke up earlier today with similar symptoms of unsteadiness and ill feeling. She had difficulty standing and walking normally. This has been associated with some lightheadedness and nausea-like symptoms. The patient presented to the emergency room with those symptoms. Her blood pressure has been elevated at the time with numbers as high as the 200/100 range. During her visit in the ER the patient's symptoms improved significantly and she was ready to be sent home after she had a normal CT of the head. The patient used the bathroom before she was discharged. After she left the bathroom she had another episode of lightheadedness, nausea-like symptoms followed by sudden loss of consciousness and increased body tone. There was some description of her arms going above her head. Her increased body tone lasted for 20 to 30 seconds. Patient was able to recover quickly from the event. She had no postictal confusion. She had some mild tongue-biting at the time. The patient has felt sick and ill since then. She is having difficulty describing her feeling in particular. She denies having any focal weakness or numbness. She has no coordination problem on one side compared to the other. She continues to have difficulty keeping her balance and standing straight. The patient's EKG during her ER visit showed an episode of asystole during the time she passed out. Her blood pressure was found to be elevated after the event. It continues to be in the 150-160/80 range. On physical examination the patient was awake, alert, oriented x 3. Pupils were round, reactive and equal. Extraocular muscles were intact. Visual field was full. Speech was fluent. Sensory examination was symmetrical to light touch and pinprick. The patient had some mild numbness in her feet which is chronic in nature. Her deep tendon reflexes were 2/4. Plantar reflexes were equivocal bilaterally. Coordination for [id number] was borderline and slow bilaterally with no significant dysmetria or abnormalities. The patient's standing and walking was slightly abnormal. She had difficulty with Romberg testing. ASSESSMENT 1. Patient presented with a seizure-like event induced by asystole. 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 2. The patient's problem with balance and gait leading to this event can be related to the fluctuation in blood pressure and heart rate. 3. We cannot also rule out the possibility of a small vessel ischemic stroke associated with hypertension. PLAN 1. Followup with Cardiology recommendation regarding the asystole event the patient had earlier today. The patient may benefit from having a heart cath and evaluation for pacemaker placement. 2. The patient may benefit from having an MRI of the brain without contrast to rule out any potential ischemic stroke associated with intractable hypertension. 3. Patient's medications including Plavix should be adjusted based on the cardiology recommendations and MRI findings. ARJUN
[2017-11-16] MEDS: ACETAMINOPHEN 325 MG TABLET PO PRN (19:43)
[2017-11-16] MEDS ORDERED: --POM--CLOPIDOGREL 75 MG TABLET PO SCH (21:00)
[2017-11-16] MEDS: --POM--LISINOPRIL 5 MG TABLET PO SCH (22:20)
[2017-11-17] MEDS: NS 1,000 ML IV SCH ×3 (00:02→19:01)
--- NOTE | 2017-11-17 07:48 | Cardiology Consult Note ---
<Ellen Johnson - Last Filed: 11/18/17 09:49> History of Present Illness Consult date: 11/16/17 Requesting physician: Amada Ceja Chief complaint: syncope History of present illness: Luna is a 77 year old female who is known to Dr. Clark with a history of TIA, precordial pain, HTN and HLD who was wearing a SOCO monitor about the last 2 weeks. On 11/16/17, she first woke up at 0430 and felt fine. When she got up for the day at 0730 she felt wobbly and checked her BP, which was elevated. Her vision might have been slightly off but she was able to read the newspaper without much difficulty. She did not have diplopia or blurred vision, but she adds that her vision has been failing for quite a while. After breakfast she rechecked her BP, and it improved. Her said she just didn't act quite right - no confusion or obvious neuro deficits. She denied vertigo, a headache, unilateral weakness or paresthesias (except from chronic neuropathy in her feet) , dysphagia, confusion, or difficulty speaking. She notes chronic tinnitus. She denied difficulty breathing. She denied any recent illness such as fever or chills, cough, URI symptoms, sore throat, allergies, vomiting, diarrhea, constipation, hematochezia, or anorexia. She denies dehydration. She denied any changes in urination. She denied leg swelling, wounds, falls/trauma, or rashes. She called both Dr. Clark's office and Dr. Baltazar's office and ultimately opted to present to the ED for evaluation. CT scan of her head was negative. She was hypertensive, 222/105 but this improved after IV hydralazine. Labs showed mild hypernatremia and transaminitis. ED staff ambulated her to see if she had recurrent lightheadedness. After voiding in the bathroom, she called for help. She felt nauseated and felt like she would pass out. She took some deep breaths and was able to make it into a wheelchair. By the time she arrived in the room, she was unresponsive. An ED RN describes a brief episode of posturing followed by total body stiffening; the ED physician describes total body stiffening with arms outstretched (like a zombie); her son reports that she was stiffened but then one of her arms slowly contorted and went above her head. All report that she was unresponsive. The ED physician reports that she had weak radial pulses and that she nicked her tongue. About 45 seconds later, she was awake and alert and had a normal neurologic exam. Her BP was elevated ( SBP >200) but within 30 minutes it improved. She had no recollection of this event. She did not have bladder incontinence. With this, the ED physician contacted the hospitalist service and the patient was admitted to observation status for further evaluation. Long pause (20+ seconds) recorded on [facility] and Dr. Clark was notified. Patient was transferred to CCU for close monitoring and further evaluation. Dr Clark is consulted and will see the patient today. 2D echo 09/27/17: Normal LV systolic function with ejection fraction of 65%, Mitral annulus calcification with mild mitral regurgitation, Mild aortic insufficiency, Mild tricuspid regurgitation with normal estimated pulmonary artery systolic pressure of 27, Trace of pulmonary insufficiency. Review of Systems - Constitutional Constitutional: Present: as per HPI - EENMT Eyes: Present: as per HPI Balance: Present: as per HPI Mouth/Throat: Present: as per HPI - Cardiovascular Cardiovascular: Present: syncope. Absent: chest pain, palpitations, dyspnea on exertion, orthopnea, edema, heart murmur Rhythm: Absent: abnormal rhythm Vascular: Absent: pedal edema - Respiratory Respiratory: Absent: cough, dyspnea, dyspnea on exertion - Gastrointestinal Gastrointestinal: Present: as per HPI - Genitourinary Genitourinary: Present: as per HPI - Neurological Neurological: Present: as per HPI - Endocrine Endocrine: Absent: palpitations [facility] Patient Stated Medical History Transient Ischemic Attacks ( Yes: september high blood pressure balance problems TIA) Cataracts Yes Hypertension Yes Hx Urinary Tract Infection Yes: 2 yrs ago Osteoarthritis Yes Clinic Medical History (Last Updated 11/16/17 @ 18:21 by Amada Ceja MD) Neuropathy (Chronic Medical) Cataract (Chronic Medical) Hypercholesterolemia (Chronic Medical) Hypertension (Chronic Medical) TIA (transient ischemic attack) (Acute Medical) Thyroid nodule (Acute Medical) right, incidentally noted on carotid Dopplers September 2017 Diverticulosis (Acute Medical) Surgical History: -Cataract Removal. -Hysterectomy - 1990. -Tonsillectomy - 1949 Family History: Family History (Last Updated 11/16/17 @ 18:33 by Amada Ceja MD) Mother High blood pressure Stroke Father Diabetes Heart attack COPD (chronic obstructive pulmonary disease) High blood pressure Brother Cancer of colon Family History Updates: Mother had a stroke at age 96. Father was a smoker and at age 76. She has 2 older brothers and 1 older sister, all living. One is 89 and had colon cancer; the other brother has heart problems. Her sister was adopted. - Social History Smoking status: Former smoker (quit in 1960; smoked a couple years in high school) Substance use type: does not use Alcohol intake: never Alcohol intake frequency: does not drink Household members: spouse Current occupational status: retired Previous occupational history: fifth grade teacher; high school special education teacher Current residence: [facility] Medications Home Medications Medication Instructions Recorded Confirmed Type Acetaminophen [Tylenol] 1,000 mg PO PRN PRN 09/26/17 11/16/17 History cycloSPORINE [Restasis Multidose] 1 drop EACH EYE DAILY 09/26/17 11/16/17 History Calcium Carbonate/Vitamin D3 1 each PO BID #1 bottle 09/27/17 11/16/17 Rx [Calcium 600-Vit D3 400 Tablet] Cholecalciferol (Vitamin D3) 5,000 unit PO DAILY #1 bottle 09/27/17 11/16/17 Rx [Vitamin D3] Clopidogrel [Plavix] 75 mg PO DAILY #30 tab 09/27/17 11/16/17 Rx Simvastatin [Zocor] 40 mg PO HS #30 tab 09/27/17 11/16/17 Rx Lisinopril [Prinivil] 5 mg PO DAILY 10/08/17 11/16/17 History Atenolol [Tenormin] 25 mg PO DAILY 11/16/17 11/16/17 History Allergies Allergy/AdvReac Type Severity Reaction Status Date / Time mercury (elemental) Allergy Unknown Rash Verified 11/16/17 12:06 Penicillins Allergy Unknown Rash Verified 11/16/17 12:06 Sulfa (Sulfonamide Allergy Rash Verified 11/16/17 12:06 Antibiotics) Exam Vital signs: Temperature 98.3 F 11/17/17 07:21 Pulse Rate 81 11/17/17 06:00 Respiratory Rate 17 11/17/17 06:00 Blood Pressure 141/65 H 11/17/17 06:00 Pulse Oximetry 94 11/17/17 06:00 - Constitutional no acute distress, well nourished, cooperative - Routine HEENT Exam Head: Present: normocephalic ENT: Present: mucous membranes moist - Routine Neck Exam Absent: JVD, carotid bruit - Routine Chest/Breast/Axilla Exam Chest wall: Absent: tenderness - Routine Respiratory Exam Present: CTA bilaterally. Absent: rales, wheezes - Routine Cardiovascular Exam Present: RRR, no murmur - Routine Abdominal Exam Present: soft, non tender - Routine Extremities Exam Present: no edema - Routine Skin Exam Present: intact, dry, warm - Routine Neurological Exam Present: alert, oriented X3 - Routine Psychiatric Exam Present: normal affect, normal thought process Results 11/17/17 04:02 11/17/17 04:02 Cardiac Enzymes 11/16/17 11/16/17 11/17/17 Range/Units 17:30 23:14 04:02 AST 43 H (14-36) U/L Troponin I < 0.012 0.022 D 0.076 D (0-0.12) ng/ml CBC 11/17/17 Range/Units 04:02 WBC 9.1 D (4.5-11.0) T/MM3 RBC 4.02 (4.00-5.20) M/MM3 Hgb 11.6 L (12-16) GM/DL Hct 35.5 L (36-46) % Plt Count 209 (130-400) T/MM3 Neut # (Auto) 6.3 (1.8-7.7) T/MM3 Lymph # (Auto) 2.0 (1-4.8) T/MM3 Clarke # (Auto) 0.6 (0-0.8) T/MM3 Eos # (Auto) 0.1 (0-0.5) T/MM3 Baso # (Auto) 0.0 (0-0.2) T/MM3 Comprehensive Metabolic Panel 11/17/17 Range/Units 04:02 Sodium 146 H (134-144) MEQ/L Potassium 3.8 (3.6-5) MEQ/L Chloride 109 H (98-107) MEQ/L Carbon Dioxide 26 (22-30) MEQ/L BUN 12.0 (7-17) MG/DL Creatinine 0.8 (0.7-1.2) mg/dL Glucose 100 (65-110) MG/DL Calcium 9.0 D (8.4-10.2) MG/DL AST 43 H (14-36) U/L ALT 53 H (1-35) U/L Alkaline Phosphatase 106 (38-126) U/L Total Protein 6.7 (6.3-8.2) g/dL Albumin 3.8 (3.5-5.0) g/dL Intake and Output 11/16/17 11/17/17 11/17/17 22:59 06:59 14:59 Intake Total 1245.000 / 1245.000 800.000 / 800.000 100 / 100 Output Total 150 / 150 550 / 550 Balance 1095.000 / 1095.000 250.000 / 250.000 100 / 100 Intake: IV 745.000 / 745.000 800.000 / 800.000 100 / 100 Ns 1,000 ml @ 100 mls/hr IV . 745.000 / 745.000 800.000 / 800.000 100 / 100 Q10H [facility] Rx#:[id number] Oral 500 / 500 Output: Urine 150 / 150 550 / 550 Other: Urine Appearance Clear Clear Urine Color Yellow Yellow Urine Odor Normal Normal # Voids 1 Weight 168 lb 13.985 oz 163 lb 9.328 oz Patient Weight 11/18/17 06:59 Weight 163 lb 9.328 oz - Imaging and Cardiology Imaging & Cardiology Narrative: Date of Exam: 11/16/17 Ordering Provider: Lit Aguirre MD Type of Exam(s): CT head/brain wo con Reason for Exam(s): rule out cerebellar stroke Indication: rule out cerebellar stroke PROCEDURE: CT head/brain wo con: Encounter: Initial Comparison: Head CT dated October 08, 2017 Technique: Axial CT images through the head were performed without contrast. Iterative Reconstruction dose reducing technique was utilized. FINDINGS: The ventricles are of normal size, shape, and contour for the patient's age. There are scattered areas of low attenuation in the white matter which most likely represent changes from chronic microvascular ischemia. The brainstem, cerebellum, and cerebral hemispheres otherwise have a normal morphology and CT attenuation. There is no evidence of midline displacement. No hemorrhage, signs of acute territorial stroke, mass effect, mass lesions, or edema is evident. The visualized portions of the skull base, midface, and calvarium demonstrate no abnormality. The paranasal sinuses are well aerated and free of significant disease. The tympanic and mastoid cavities appear normal. IMPRESSION: No acute intracranial abnormality or hemorrhage. Stable head CT. 11/17/17 07:56 Assessment and Plan - Assessment and Plan (1) Syncope Current visit: Yes Status: Acute - Long pause (20+ seconds) recorded on [facility] - Patient had syncopal episode witnessed in the ED - Plan PPM insertion today - Holding BB (Atenolol 25mg daily) (2) Transient cerebral ischemic attack Problem details: 09/26/17 Current visit: Yes Status: Resolved (3) Hypercholesterolemia Current visit: No Status: Chronic Continue Simvastatin 40mg Q HS (4) Hypertension Current visit: No Status: Chronic Continue Lisinopril 5mg daily (5) Sinus pause Current visit: Yes Status: Acute - Long pause (20+ seconds) recorded on SOCO - Patient had syncopal episode witnessed in the ED - Plan PPM insertion today - Holding BB (Atenolol 25mg daily) - Assessment and Plan Sinus pause/ Syncope: - Long pause (20+ seconds) recorded on SOCO - Patient had syncopal episode witnessed in the ED - Plan PPM insertion today - Holding BB (Atenolol 25mg daily) - TSH HLD: Continue Simvastatin 40mg daily HTN: continue Lisinopril 5mg daily Thank you for allowing us to participate in the care of this patient Hospital Course Summary Disclaimer: The visit summary below is not to be considered part of the above Progress Note. Hospital Course: 11/16/17 Admit, observation status Consult Dr. Pulliam for poss seizure. Consult Dr. Clark for near syncope; eval to see if there were any episodes on Po [facility]. ?further eval for HTN. BP improved to 156/70. Resume home antiHTN meds. Neuro checks & seizure precautions. Transaminitis - this is new from last admission. Hold statin and assess CPK. Consider liver sono. IVF for hypernatremia. Recheck BMP in am. TSH and lipid panel assessed on 09/26/17. Advanced directives: DNI. Don is primary DPOA; followed by local son and daughter. <Ousmane Clark - Last Filed: 11/18/17 10:48> [facility] Clinic Medical History (Last Updated 11/16/17 @ 18:21 by Amada Ceja MD) Neuropathy (Chronic Medical) Cataract (Chronic Medical) Hypercholesterolemia (Chronic Medical) Hypertension (Chronic Medical) TIA (transient ischemic attack) (Acute Medical) Thyroid nodule (Acute Medical) right, incidentally noted on carotid Dopplers September 2017 Diverticulosis (Acute Medical) Family History: Family History (Last Updated 11/16/17 @ 18:33 by Amada Ceja MD) Mother High blood pressure Stroke Father Diabetes Heart attack COPD (chronic obstructive pulmonary disease) High blood pressure Brother Cancer of colon Exam Vital signs: Temperature 97.8 F 11/18/17 07:45 Pulse Rate 72 11/18/17 07:58 Respiratory Rate 17 11/18/17 07:45 Blood Pressure 186/89 H 11/18/17 07:38 Pulse Oximetry 97 11/18/17 07:38 Results 11/18/17 04:24 11/18/17 04:24 Cardiac Enzymes 11/18/17 Range/Units 04:24 AST 40 H (14-36) U/L CBC 11/18/17 Range/Units 04:24 WBC 8.7 (4.5-11.0) T/MM3 RBC 3.99 L (4.00-5.20) M/MM3 Hgb 11.4 L (12-16) GM/DL Hct 35.3 L (36-46) % Plt Count 203 (130-400) T/MM3 Neut # (Auto) 6.0 (1.8-7.7) T/MM3 Lymph # (Auto) 1.8 (1-4.8) T/MM3 Clarke # (Auto) 0.6 (0-0.8) T/MM3 Eos # (Auto) 0.2 (0-0.5) T/MM3 Baso # (Auto) 0.0 (0-0.2) T/MM3 Comprehensive Metabolic Panel 11/18/17 Range/Units 04:24 Sodium 144 (134-144) MEQ/L Potassium 3.6 (3.6-5) MEQ/L Chloride 111 H (98-107) MEQ/L Carbon Dioxide 22 (22-30) MEQ/L BUN 10.0 (7-17) MG/DL Creatinine 0.7 (0.7-1.2) mg/dL Glucose 106 (65-110) MG/DL Calcium 8.8 (8.4-10.2) MG/DL AST 40 H (14-36) U/L ALT 48 H (1-35) U/L Alkaline Phosphatase 105 (38-126) U/L Total Protein 6.7 (6.3-8.2) g/dL Albumin 3.9 (3.5-5.0) g/dL Intake and Output 11/17/17 11/18/17 11/18/17 22:59 06:59 14:59 Intake Total 400 / 485 250 / 250 329.167 / 329.167 Balance 400 / 485 250 / 250 329.167 / 329.167 Intake: IV 250 / 250 89.167 / 89.167 Ns 1,000 ml @ 50 mls/hr IV . 89.167 / 89.167 Q20H [facility] Rx#:[id number] Vancomycin 1,000 mg In Ns 250 250 / 250 ml @ 250 mls/hr IV O ONE Rx#: [id number] Oral 400 / 400 240 / 240 Other: Urine Appearance Clear Clear Clear Urine Color Yellow Yellow Yellow Urine Odor Normal Normal # Voids 1 1 1 Weight 76 kg Patient Weight 11/19/17 06:59 Weight 76 kg Assessment and Plan - Attestation Attestation Narrative: 11/18/17 10:48 Recommendation After examining the patient I agree with the above assessment. I am involved in the formulation of the patient's plan of care. - Assessment and Plan (1) Hypertension Current visit: No Status: Chronic (2) Hypercholesterolemia Current visit: No Status: Chronic (3) Syncope Current visit: Yes Status: Acute (4) Transient cerebral ischemic attack Problem details: 09/26/17 Current visit: Yes Status: Resolved (5) Sinus pause Current visit: Yes Status: Acute Hospital Course Summary Disclaimer: The visit summary below is not to be considered part of the above Progress Note.
[2017-11-17] MEDS: CYCLOSPORINE 0.05% EACH EYE SCH (09:00)
[2017-11-17] MEDS ORDERED: LISINOPRIL 5 MG TABLET PO SCH (09:00)
[2017-11-17] MEDS ORDERED: CLOPIDOGREL 75 MG TABLET PO SCH (09:00)
[2017-11-17] MEDS: EYE EACH EYE SCH (09:00)
[2017-11-17] MEDS ORDERED: ATENOLOL 25 MG TABLET PO SCH (09:00)
[2017-11-17] MEDS ORDERED: CEFAZOLIN 1 G INJECTION ONE (12:41)
[2017-11-17] MEDS ORDERED: FentaNYL 100 MCG/2 ML INJECTION ONE (12:42)
[2017-11-17] MEDS ORDERED: SALINE FLUSH 10ml SYRINGE ONE (12:42)
[2017-11-17] MEDS ORDERED: LIDOCAINE 1% (10mg/ml) 30ml SDV INJ ONE (12:42)
[2017-11-17] MEDS ORDERED: MIDAZOLAM 2mg/2ml INJECTION ONE (12:42)
[2017-11-17] MEDS ORDERED: BACITRACIN 50,000 UNIT INJECTION ONE (12:42)
[2017-11-17] MEDS ORDERED: MAG-AL + SIM ORAL LIQUID 30ml PO PRN (14:06)
[2017-11-17] MEDS ORDERED: METOPROLOL 5mg/5ml INJECTION IVP PRN (14:42)
--- NOTE | 2017-11-17 15:04 | Progress Note ---
- Date 11/17/17 Subjective: F/U: Syncope, sinus pause. Feeling well this afternoon-just had pacemaker placed. Note mild discomfort to area of pacemaker placement, but nothing significant. Understands restrictions post pacemaker. Breathing well. No chest pressure or pain. Denies nausea or ab discomfort; not really that hungry at this time. Not feeling dizzy or having headache. Objective Vital signs: Temperature 97.9 F 11/17/17 11:00 Pulse Rate 74 11/17/17 14:45 Respiratory Rate 12 11/17/17 14:45 Blood Pressure 177/80 H 11/17/17 14:45 Pulse Oximetry 95 11/17/17 14:45 Height/Weight/BMI: Height 1.55 m Weight 74.2 kg Body Mass Index 31.8 - Constitutional Present: well nourished, well developed, average body habitus, cooperative - Routine HEENT Exam Head: Present: normocephalic, atraumatic Eye: Present: EOMI, PERRL ENT: Present: mucous membranes moist - Routine Respiratory Exam Present: CTA bilaterally. Absent: respiratory distress - Routine Cardiovascular Exam Present: RRR, no murmur - Routine Abdominal Exam Present: soft, normoactive bowel sounds, non distended, non tender. Absent: guarding - Routine Extremities Exam Present: no edema, pulses intact. Absent: clubbing, edema Comments: Left arm in sling. - Routine Skin Exam Present: dry, warm Comments: Pacemaker placement site covered and dry. - Routine Neurological Exam Present: alert, oriented X3, CN II-XII intact, moving all extremities, vision grossly intact, hearing grossly intact, normal speech. Absent: motor deficit, altered mental status - Routine Psychiatric Exam Present: normal affect, normal thought process, cooperative, good insight, good judgment Results - Labs CBC & Chem 7: 11/17/17 04:02 11/17/17 04:02 Assessment and Plan Assessment and Plan: Assessment Syncope vs. seizure Sinus pause Transaminitis, POA Hypernatremia, POA TIA 09/26/17 HTN Hypercholesterolemia Plan Pacemaker placed this afternoon by Dr Clark secondary to sinus pause with subsequent syncope. Will consult PT/OT secondary to limitations needed post pacemaker placement. Decrease IVF to 50cc/hr now that diet able to advance. Blood pressure still showing elevation - Norvasc 5mg daily to help BP control. Change admission status to inpatient. Will recheck CMP in am secondary to elevated liver enzymes. Case discussed with CM. Time spent with patient care 25 minutes. DVT Prophylaxis: SCD's Resuscitation Status: Do Not Intubate - Time spent with patient Time with patient PN: 25 minutes - Physician Narrative Physician: Guillermo Rader MD Narrative: Date: 11/17/17 Time: 1500 Hospital Course Summary Disclaimer: The visit summary below is not to be considered part of the above Progress Note. Hospital Course: 11/16/17 Admit, observation status Consult Dr. Pulliam for poss seizure. Consult Dr. Clark for near syncope; eval to see if there were any episodes on [email or web address]. ?further eval for HTN. BP improved to 156/70. Resume home antiHTN meds. Neuro checks & seizure precautions. Transaminitis - this is new from last admission. Hold statin and assess CPK. Consider liver sono. IVF for hypernatremia. Recheck BMP in am. TSH and lipid panel assessed on 09/26/17. Advanced directives: DNI. Don is primary DPOA; followed by local son and daughter. 11/17/17 Change admission status to inpatient due to syncope and need need for pacemaker placement. Pacemaker placed this afternoon by Dr Clark secondary to sinus pause with subsequent syncope. Will consult PT/OT secondary to limitations needed post pacemaker placement. Decrease IVF to 50cc/hr now that diet able to advance. Blood pressure still showing elevation - Norvasc 5mg daily to help BP control.
[2017-11-17] MEDS: AMLODIPINE 5 MG TABLET PO SCH (15:58)
--- NOTE | 2017-11-17 16:03 | XRay Report ---
Indication: ppm PROCEDURE: XR chest 1V: Encounter: Initial Comparison: October 08, 2017 Findings: New left-sided dual-lead cardiac pacemaker with right atrial and right ventricular leads. No evidence of lead fracture. No visible pneumothorax. Lungs are stable and clear. Heart size and mediastinal contours are stable. Pulmonary vascularity is normal. Impression: New left pacemaker without evidence of pneumothorax. .
[2017-11-17] MEDS: ACETAMINOPHEN 325 MG TABLET PO PRN (20:22)
[2017-11-17] MEDS: --POM--LISINOPRIL 5 MG TABLET PO SCH (20:23)
[2017-11-17] MEDS ORDERED: SIMVASTATIN 20 MG PO SCH (21:00)
[2017-11-18] MEDS ORDERED: VANCOMYCIN IV ONE (01:00)
[2017-11-18] MEDS ORDERED: VANCOMYCIN 1,000 MG in NS 250 ML IV ONE (01:00)
[2017-11-18] MEDS ORDERED: NS IV ONE (01:00)
[2017-11-18] MEDS: ACETAMINOPHEN 325 MG TABLET PO PRN ×2 (02:22→08:43)
[2017-11-18] MEDS: NS 1,000 ML IV SCH ×2 (06:58→11:48)
[2017-11-18 07:47] VITALS: BP 186/89; RESP 17; TEMP 97.8; O2SAT 97
[2017-11-18 07:58] VITALS: PULSE 72
[2017-11-18] MEDS: AMLODIPINE 5 MG TABLET PO SCH (08:44)
[2017-11-18] MEDS: EYE EACH EYE SCH (08:45)
[2017-11-18] MEDS: CYCLOSPORINE 0.05% EACH EYE SCH (08:45)
--- NOTE | 2017-11-18 09:40 | XRay Report ---
INDICATION: ppm PROCEDURE: CHEST 2-VIEWS UPRIGHT (PA & LAT) Encounter: Initial COMPARISON: November 17, 2017 FINDINGS: Stable appearance of the left dual lead cardiac pacemaker. No visible pneumothorax. Lungs are stable and grossly clear. Heart size, mediastinal contours and pulmonary vascularity are unchanged. Impression: No pneumothorax. .
[2017-11-18] MEDS ORDERED: MINOCYCLINE 100 MG CAPSULE PO SCH (09:51)
--- NOTE | 2017-11-18 09:53 | Cardiology Progress Note ---
<Ellen Johnson M - Last Filed: 11/18/17 09:50> Subjective Principal diagnosis: sinus pause, syncope Interval history: Luna is seen in follow up for syncope and sinus pause. She is S/P [employer] dual chamber PPM insertion yesterday. Dressing is removed and incision is C/D/I with steri strips in place. She denies chest pain, dyspnea, palpitations, nausea or dizziness. Exam Vital signs: Temperature 97.8 F 11/18/17 07:45 Pulse Rate 72 11/18/17 07:58 Respiratory Rate 17 11/18/17 07:45 Blood Pressure 186/89 H 11/18/17 07:38 Pulse Oximetry 97 11/18/17 07:38 Inpatient Medications: Generic Name Dose Route Start Last Admin Trade Name Freq PRN Reason Stop Dose Admin Acetaminophen 650 mg 11/16/17 16:11 11/18/17 08:43 Tylenol PO 650 mg Q6H PRN Administration Fever Al Hydroxide/Mg Hydroxide 30 ml 11/17/17 14:06 Maalox Plus PO Q3H PRN Indigestion Amlodipine Besylate 5 mg 11/17/17 15:30 11/18/17 08:44 Norvasc PO 5 mg DAILY GIL[facility]ERTO Administration Atenolol 25 mg 11/18/17 10:00 Tenormin PO DAILY GIL[facility]ERTO Cyclosporine 1 drop 11/17/17 09:00 11/18/17 08:45 Restasis EACH EYE 1 drop DAILY GILBERTO Administration Sodium Chloride 1,000 mls @ 50 mls/hr 11/17/17 15:15 11/18/17 08:45 Normal Saline IV 0 mls/hr .Q20H GILBERTO Infusion Lisinopril 5 mg 11/16/17 21:00 11/17/17 20:23 Prinivil PO 5 mg HS GILBERTO Administration Ondansetron HCl 4 mg 11/16/17 16:18 Zofran IVP Q6H PRN Nausea &/or vomiting Ondansetron HCl 4 mg 11/16/17 16:45 11/16/17 16:54 Zofran Odt Tablet PO 4 mg Q6H PRN Administration Nausea &/or vomiting Simvastatin 40 mg 11/17/17 21:00 11/17/17 20:22 Zocor PO 40 mg HS GILBERTO Administration Sodium Chloride 10 - 80 ml 11/16/17 11:44 11/16/17 14:13 Iv Flush IVF 10 ml PRN PRN Administration Flushing Discontinued Medications Generic Name Dose Route Start Last Admin Trade Name Freq PRN Reason Stop Dose Admin Atenolol 25 mg 11/17/17 09:00 Tenormin PO DAILY [facility] Clopidogrel Bisulfate 75 mg 11/17/17 09:00 Plavix PO DAILY GILBERTO Clopidogrel Bisulfate 75 mg 11/16/17 21:00 11/16/17 22:20 Plavix PO 75 mg HS GILBERTO Administration Hydralazine HCl 10 mg 11/16/17 11:48 11/16/17 12:23 Apresoline IVP 11/16/17 11:49 10 mg O ONE Administration Hydralazine HCl 10 mg 11/16/17 13:25 11/16/17 13:31 Apresoline IVP 11/16/17 13:26 10 mg O ONE Administration Sodium Chloride 500 mls @ 999.9 mls/hr 11/16/17 11:46 11/16/17 12:59 Normal Saline IV 11/16/17 12:15 Infused .Q30M ONE Infusion Sodium Chloride 1,000 mls @ 100 mls/hr 11/16/17 14:15 11/17/17 15:20 Normal Saline IV 50 mls/hr .Q10H GIL[facility]ERTO Infusion Dopamine HCl/Dextrose 400 mg in 250 mls @ 14.363 mls/hr 11/16/17 18:13 Dopamine Drip IV .[id number] PRN Bradycardia Protocol 5 MCG/KG/MIN Vancomycin HCl 1,000 mg/ 100 mls @ 250 mls/hr 11/18/17 01:00 Sodium Chloride IV 11/18/17 01:23 O ONE Vancomycin HCl 1,000 mg/ 250 mls @ 250 mls/hr 11/18/17 01:00 11/18/17 01:58 Sodium Chloride IV 11/18/17 01:59 Infused O ONE Infusion Lisinopril 5 mg 11/17/17 09:00 Prinivil PO DAILY [facility] Metoprolol Tartrate 5 mg 11/17/17 14:42 11/17/17 14:46 Lopressor IVP 5 mg Q4H PRN Administration HYPERTENSION - Constitutional no acute distress, well nourished, cooperative - Routine HEENT Exam Head: Present: normocephalic ENT: Present: mucous membranes moist - Routine Neck Exam Absent: JVD, carotid bruit - Routine Chest/Breast/Axilla Exam Chest wall: Present: tenderness, pacemaker - Routine Respiratory Exam Present: CTA bilaterally. Absent: rales, wheezes - Routine Cardiovascular Exam Present: RRR, no murmur - Routine Abdominal Exam Present: soft, non tender - Routine Extremities Exam Present: no edema - Routine Skin Exam Present: intact, dry, warm - Routine Neurological Exam Present: alert, oriented X3 - Routine Psychiatric Exam Present: normal affect, normal thought process Results 11/18/17 04:24 11/18/17 04:24 Cardiac Enzymes 11/18/17 Range/Units 04:24 AST 40 H (14-36) U/L CBC 11/18/17 Range/Units 04:24 WBC 8.7 (4.5-11.0) T/MM3 RBC 3.99 L (4.00-5.20) M/MM3 Hgb 11.4 L (12-16) GM/DL Hct 35.3 L (36-46) % Plt Count 203 (130-400) T/MM3 Neut # (Auto) 6.0 (1.8-7.7) T/MM3 Lymph # (Auto) 1.8 (1-4.8) T/MM3 [place] # (Auto) 0.6 (0-0.8) T/MM3 Eos # (Auto) 0.2 (0-0.5) T/MM3 Baso # (Auto) 0.0 (0-0.2) T/MM3 Comprehensive Metabolic Panel 11/18/17 Range/Units 04:24 Sodium 144 (134-144) MEQ/L Potassium 3.6 (3.6-5) MEQ/L Chloride 111 H (98-107) MEQ/L Carbon Dioxide 22 (22-30) MEQ/L BUN 10.0 (7-17) MG/DL Creatinine 0.7 (0.7-1.2) mg/dL Glucose 106 (65-110) MG/DL Calcium 8.8 (8.4-10.2) MG/DL AST 40 H (14-36) U/L ALT 48 H (1-35) U/L Alkaline Phosphatase 105 (38-126) U/L Total Protein 6.7 (6.3-8.2) g/dL Albumin 3.9 (3.5-5.0) g/dL Intake and Output 11/17/17 11/18/17 11/18/17 22:59 06:59 14:59 Intake Total 400 / 485 250 / 250 329.167 / 329.167 Balance 400 / 485 250 / 250 329.167 / 329.167 Intake: IV 250 / 250 89.167 / 89.167 Ns 1,000 ml @ 50 mls/hr IV . 89.167 / 89.167 Q20H [facility] Rx#:[id number] Vancomycin 1,000 mg In Ns 250 250 / 250 ml @ 250 mls/hr IV O ONE Rx#: [id number] Oral 400 / 400 240 / 240 Other: Urine Appearance Clear Clear Clear Urine Color Yellow Yellow Yellow Urine Odor Normal Normal # Voids 1 1 1 Weight 167 lb 8.821 oz Patient Weight 11/19/17 06:59 Weight 167 lb 8.821 oz - Imaging and Cardiology Imaging & Cardiology Narrative: Date of Exam: 11/18/17 Ordering Provider: Ellen Johnson APRN Type of Exam(s): XR chest 2V Reason for Exam(s): ppm INDICATION: ppm PROCEDURE: CHEST 2-VIEWS UPRIGHT (PA & LAT) Encounter: Initial COMPARISON: November 17, 2017 FINDINGS: Stable appearance of the left dual lead cardiac pacemaker. No visible pneumothorax. Lungs are stable and grossly clear. Heart size, mediastinal contours and pulmonary vascularity are unchanged. Impression: No pneumothorax. . 11/18/17 09:52 Date of Exam: 11/17/17 Ordering Provider: Ellen Johnson APRN Type of Exam(s): XR chest 1V Reason for Exam(s): ppm Indication: ppm PROCEDURE: XR chest 1V: Encounter: Initial Comparison: October 08, 2017 Findings: New left-sided dual-lead cardiac pacemaker with right atrial and right ventricular leads. No evidence of lead fracture. No visible pneumothorax. Lungs are stable and clear. Heart size and mediastinal contours are stable. Pulmonary vascularity is normal. Impression: New left pacemaker without evidence of pneumothorax. 11/18/17 09:52 - EKG Interpretation EKG: sinus rhythm Assessment and Plan - Assessment and Plan (1) Syncope Status: Acute (2) Transient cerebral ischemic attack Problem details: 09/26/17 Status: Resolved (3) Hypercholesterolemia Status: Chronic (4) Hypertension Status: Chronic (5) Sinus pause Status: Acute - Assessment and Plan 11/17/17 Sinus pause/ Syncope: - Long pause (20+ seconds) recorded on [facility] - Patient had syncopal episode witnessed in the ED - Plan PPM insertion today - Holding BB (Atenolol 25mg daily) - TSH HLD: Continue Simvastatin 40mg daily HTN: continue Lisinopril 5mg daily Thank you for allowing us to participate in the care of this patient S/P BS PPM: suboptimal control of BP. - Amlodipine 5mg daily started per attending 11/18/17 HTN: remains elevated. resume home Atenolol 25mg daily, continue Amlodipine and lisinopril CXR: No pneumothorax. Incision C/D/I, Minocycline 100mg po BID for 7 days - Follow up for incision check on 11/24/17 at 1200 in [place] office. Hospital Course Summary Disclaimer: The visit summary below is not to be considered part of the above Progress Note. Hospital Course: 11/16/17 Admit, observation status Consult Dr. Pulliam for poss seizure. Consult Dr. Clark for near syncope; eval to see if there were any episodes on [employer]. ?further eval for HTN. BP improved to 156/70. Resume home antiHTN meds. Neuro checks & seizure precautions. Transaminitis - this is new from last admission. Hold statin and assess CPK. Consider liver sono. IVF for hypernatremia. Recheck BMP in am. TSH and lipid panel assessed on 09/26/17. Advanced directives: DNI. Don is primary DPOA; followed by local son and daughter. <Ousmane Clark - Last Filed: 11/24/17 08:47> Exam Vital signs: Temperature 97.8 F 11/18/17 07:45 Pulse Rate 72 11/18/17 07:58 Respiratory Rate 17 11/18/17 07:45 Blood Pressure 186/89 H 11/18/17 07:38 Pulse Oximetry 97 11/18/17 07:38 Inpatient Medications: Discontinued Medications Generic Name Dose Route Start Last Admin Trade Name Freq PRN Reason Stop Dose Admin Acetaminophen 650 mg 11/16/17 16:11 11/18/17 08:43 Tylenol PO 650 mg Q6H PRN Administration Fever Al Hydroxide/Mg Hydroxide 30 ml 11/17/17 14:06 Maalox Plus PO Q3H PRN Indigestion Amlodipine Besylate 5 mg 11/17/17 15:30 11/18/17 08:44 Norvasc PO 5 mg DAILY [facility] Administration Atenolol 25 mg 11/17/17 09:00 Tenormin PO DAILY [facility] Atenolol 25 mg 11/18/17 10:00 11/18/17 11:48 Tenormin PO 25 mg DAILY [facility] Administration Clopidogrel Bisulfate 75 mg 11/17/17 09:00 Plavix PO DAILY [facility] Clopidogrel Bisulfate 75 mg 11/16/17 21:00 11/16/17 22:20 Plavix PO 75 mg HS GILBERTO Administration Cyclosporine 1 drop 11/17/17 09:00 11/18/17 08:45 Restasis EACH EYE 1 drop DAILY [facility]ERTO Administration Hydralazine HCl 10 mg 11/16/17 11:48 11/16/17 12:23 Apresoline IVP 11/16/17 11:49 10 mg O ONE Administration Hydralazine HCl 10 mg 11/16/17 13:25 11/16/17 13:31 Apresoline IVP 11/16/17 13:26 10 mg O ONE Administration Sodium Chloride 500 mls @ 999.9 mls/hr 11/16/17 11:46 11/16/17 12:59 Normal Saline IV 11/16/17 12:15 Infused .Q30M ONE Infusion Sodium Chloride 1,000 mls @ 100 mls/hr 11/16/17 14:15 11/17/17 15:20 Normal Saline IV 50 mls/hr .Q10H [facility] Infusion Dopamine HCl/Dextrose 400 mg in 250 mls @ 14.363 mls/hr 11/16/17 18:13 Dopamine Drip IV .[id number] PRN Bradycardia Protocol 5 MCG/KG/MIN Vancomycin HCl 1,000 mg/ 100 mls @ 250 mls/hr 11/18/17 01:00 Sodium Chloride IV 11/18/17 01:23 O ONE Sodium Chloride 1,000 mls @ 50 mls/hr 11/17/17 15:15 11/18/17 11:48 Normal Saline IV Not Given .Q20H [facility] Vancomycin HCl 1,000 mg/ 250 mls @ 250 mls/hr 11/18/17 01:00 11/18/17 01:58 Sodium Chloride IV 11/18/17 01:59 Infused O ONE Infusion Lisinopril 5 mg 11/17/17 09:00 Prinivil PO DAILY [facility] Lisinopril 5 mg 11/16/17 21:00 11/17/17 20:23 Prinivil PO 5 mg HS [facility] Administration Metoprolol Tartrate 5 mg 11/17/17 14:42 11/17/17 14:46 Lopressor IVP 5 mg Q4H PRN Administration HYPERTENSION Minocycline HCl 100 mg 11/18/17 09:51 11/18/17 11:48 Minocin PO 100 mg ACBID GIL[facility] Administration Ondansetron HCl 4 mg 11/16/17 16:18 Zofran IVP Q6H PRN Nausea &/or vomiting Ondansetron HCl 4 mg 11/16/17 16:45 11/16/17 16:54 Zofran Odt Tablet PO 4 mg Q6H PRN Administration Nausea &/or vomiting Simvastatin 40 mg 11/17/17 21:00 11/17/17 20:22 Zocor PO 40 mg HS [facility]IL[facility]ERTO Administration Sodium Chloride 10 - 80 ml 11/16/17 11:44 11/16/17 14:13 Iv Flush IVF 10 ml PRN PRN Administration Flushing Results 11/18/17 04:24 11/18/17 04:24 Assessment and Plan - Assessment and Plan (1) Hypertension Status: Chronic (2) Hypercholesterolemia Status: Chronic (3) Syncope Status: Acute (4) Transient cerebral ischemic attack Problem details: 09/26/17 Status: Resolved (5) Sinus pause Status: Acute - Attestation Attestation Narrative: 11/24/17 08:47 Recommendation After examining the patient I agree with the above assessment. I am involved in the formulation of the patient's plan of care. Hospital Course Summary Disclaimer: The visit summary below is not to be considered part of the above Progress Note.
[2017-11-18] MEDS ORDERED: ATENOLOL 25 MG TABLET PO SCH (10:00)
--- NOTE | 2017-11-18 10:50 | Discharge Summary ---
Discharge Information Date of admission: 11/17/17 15:53 Anticipated date of discharge: 11/18/17 Attending Physician: Guillermo Rader MD Primary care physician: Doni Baltazar MD Consults: Dr. Eduardo Pulliam Discharge diagnosis Acute syncope due to brief period of asystole Associated conditions and complications Seizure-like event due to transient cardiac arrest Sinus pause Transaminitis, POA - likely due to acute ischemic event, improving Hypernatremia, POA-resolved TIA 09/26/17 HTN Hypercholesterolemia - Procedures Procedures: PPM placement 11/17/17 - Laboratory Labs: Admit Lab 11/16/17 12:23 WBC 6.0 Hgb 12.6 Hct 38.4 MCV 88.7 Plt Count 212 Neut % (Auto) 60.0 Lymph % (Auto) 30.5 [place] % (Auto) 7.0 Eos % (Auto) 2.0 Baso % (Auto) 0.5 Admit Lab 11/16/17 11/16/17 12:23 12:23 Sodium 147 H Potassium 4.5 Chloride 107 Carbon Dioxide 27 Anion Gap 13 BUN 15.0 Creatinine 0.9 GFR Calculation 61 BUN/Creatinine Ratio 17 Glucose 99 Calculated Osmolality 283 H Calcium 10.1 Total Bilirubin 0.50 AST 62 H ALT 74 H Alkaline Phosphatase 129 H Total Creatine Kinase 45 Total Protein 7.7 Albumin 4.5 Globulin 3.2 Albumin/Globulin Ratio 1.4 TSH 11/17/17 04:02 TSH 0.87 11/18/17 04:24 11/18/17 04:24 - Radiology Radiology: 11/16/17 CT head IMPRESSION: No acute intracranial abnormality or hemorrhage. Stable head CT. Date of Exam: 11/17/17 Type of Exam: XR chest 1V Comparison: October 08, 2017 Findings: New left-sided dual-lead cardiac pacemaker with right atrial andright ventricular leads. No evidence of lead fracture. No visible pneumothorax. Lungs are stable and clear. Heart size and mediastinal contours are stable. Pulmonary vascularity is normal. Impression: New left pacemaker without evidence of pneumothorax. Date of Exam: 11/17/17 Type of Exam: XR chest 1V FINDINGS: Stable appearance of the left dual lead cardiac pacemaker. No visible pneumothorax. Lungs are stable and grossly clear. Heart size, mediastinal contours and pulmonary vascularity are unchanged. Impression: No pneumothorax. History of Present Illness HPI: Luna Clemente is a 77 y/o woman who has been in very good health until recently. On September 26, she was very unsteady on her feet and extremely hypertensive. She was admitted and underwent a complete stroke workup, which was negative except for a right thyroid nodule. She was discharged with a diagnosis of TIA. Her ASA was changed to Plavix and simvastatin was increased to 40 mg. She was seen again on October 08 for lightheadedness/dizziness with brief chest pain. She was discharged from the ED. She followed up with Dr. Clark and had a [employer] monitor placed approx. 2 weeks ago. She has not had any further chest pain and denies palpitations. On 11/16/17, she first woke up at 0430 and felt fine. When she got up for the day at 0730 she felt wobbly, but not as severe as it was on 09/26/17. She checked her BP, which was elevated. Her vision might have been slightly off but she was able to read the newspaper without much difficulty. She did not have diplopia or blurred vision, but she adds that her vision has been failing for quite a while. After breakfast she rechecked her BP, and it improved. Her said she just didn' t act quite right - no confusion or obvious neuro deficits. She denied vertigo, a headache, unilateral weakness or paresthesias (except from chronic neuropathy in her feet), dysphagia, confusion, or difficulty speaking. She notes chronic tinnitus. She denied difficulty breathing. She denied any recent illness such as fever or chills, cough, URI symptoms, sore throat, allergies, vomiting, diarrhea, constipation, hematochezia, or anorexia. She denies dehydration. She denied any changes in urination. She denied leg swelling, wounds, falls/trauma, or rashes. She called both Dr. Clark's office and Dr. Baltazar's office and ultimately opted to present to the ED for evaluation. CT scan of her head was negative. She was hypertensive, 222/105 but this improved after IV hydralazine. Labs showed mild hypernatremia and transaminitis. ED staff ambulated her to see if she had recurrent lightheadedness. After voiding in the bathroom, she called for help. She felt nauseated and felt like she would pass out. She took some deep breaths and was able to make it into a wheelchair. By the time she arrived in the room, she was unresponsive. An ED RN describes a brief episode of posturing followed by total body stiffening; the ED physician describes total body stiffening with arms outstretched (like a zombie); her son reports that she was stiffened but then one of her arms slowly contorted and went above her head. All report that she was unresponsive. The ED physician reports that she had weak radial pulses and that she nicked her tongue. About 45 seconds later, she was awake and alert and had a normal neurologic exam. Her BP was elevated ( SBP >200) but within 30 minutes it improved. She had no recollection of this event. She did not have bladder incontinence. With this, the ED physician contacted the hospitalist service and the patient was admitted to observation status for further evaluation. For complete details of the H&P refer to that document. Objective Vital signs: Temperature 97.8 F 11/18/17 07:45 Pulse Rate 72 11/18/17 07:58 Respiratory Rate 17 11/18/17 07:45 Blood Pressure 186/89 H 11/18/17 07:38 Pulse Oximetry 97 11/18/17 07:38 Height/Weight/BMI: Weight 76 kg - Constitutional Present: no acute distress, average body habitus, cooperative - Routine HEENT Exam Head: Present: normocephalic, atraumatic Eye: Present: EOMI, PERRL ENT: Present: mucous membranes moist - Routine Respiratory Exam Present: CTA bilaterally. Absent: rales, rhonchi, crackles - Routine Cardiovascular Exam Present: RRR, S1, S2, no murmur Comments: Left chest wall PPM c/d/i- incision well approximated with no steristrips in place - Routine Abdominal Exam Present: soft, normoactive bowel sounds, non distended, non tender - Routine Extremities Exam Present: no edema, non tender, normal capillary refill - Routine Musculoskeletal Exam Musculoskeletal: Present: normal strength, limited range of motion (Left arm shoulder immobilizer due to PPM) - Routine Skin Exam Present: intact, dry, warm - Routine Neurological Exam Present: alert, oriented X3, CN II-XII intact, moving all extremities. Absent: sensory deficit, motor deficit - Routine Psychiatric Exam Present: normal affect, normal thought process, cooperative, good insight, good judgment Hospital Course This is a general summary of the patient's hospital course. For more details refer to the complete medical record. Hospital course: 11/16/17 Admit, observation status Consult Dr. Pulliam for poss seizure. Consult Dr. Clark for near syncope; eval to see if there were any episodes on [employer]. ?further eval for HTN. BP improved to 156/70. Resume home antiHTN meds. Neuro checks & seizure precautions. Transaminitis - this is new from last admission. Hold statin and assess CPK. Consider liver sono. IVF for hypernatremia. Recheck BMP in am. TSH and lipid panel assessed on 09/26/17. Advanced directives: DNI. Don is primary DPOA; followed by local son and daughter. 11/17/17 Pacemaker placed this afternoon by Dr Clark secondary to sinus pause with subsequent syncope. Will consult PT/OT secondary to limitations needed post pacemaker placement. Decrease IVF to 50cc/hr now that diet able to advance. Blood pressure still showing elevation - Norvasc 5mg daily to help BP control. Change admission status to inpatient. Will recheck CMP in am secondary to elevated liver enzymes. 11/18/17 Patient is doing very well. Reports no concerns. Pain fairly well controlled with APAP. She has seen PT/OT for instructions re: activity at dismissal. RN reports that PPM has been interrogated, and that cardiology has cleared pt for dismissal. Patient reports that she is agreeable with dismissal today. BP remains fairly elevated. Will increase Amlodipine dose. She may benefit from renal Doppler as outpatient to further assess cause of her HTN if it remains elevated. LFTs are trending down- suspect due to acute ischemic insult. Recommend repeat CMP in one week. D/W cardiology- hold plavix pending thyroid bx. Time spent with patient: greater than 35 minutes Resuscitation Status: Do Not Intubate Discharge Plan - Discharge Disposition Discharge Date: 11/18/17 Disposition: 01 Discharged Home, Self-Care *Condition: Improved Reason For Visit (Visit label in EMR): TIA - Discharge Medications *Discharge Medications: New Amlodipine [Norvasc] 5 mg PO DAILY #30 tab Minocycline [Minocin] 100 mg PO ACBID 7 Days #14 cap Continue cycloSPORINE [Restasis Multidose] 1 drop EACH EYE DAILY Calcium Carbonate/Vitamin D3 [Calcium 600-Vit D3 400 Tablet] 1 each PO BID # 1 bottle Cholecalciferol (Vitamin D3) [Vitamin D3] 5,000 unit PO DAILY #1 bottle Simvastatin [Zocor] 40 mg PO HS #30 tab Lisinopril [Prinivil] 5 mg PO DAILY Atenolol [Tenormin] 25 mg PO DAILY Changed Acetaminophen [Tylenol] 500 mg PO Q5H PRN #0 PRN Reason: Pain Discontinued Clopidogrel [Plavix] 75 mg PO DAILY #30 tab - Discharge Packet/Instructions *Diet: Resume heart healthy diet. *Activity: Limit activity for 2 days. No lifting more than 10 pounds, no pushing or pulling for 1 week. No raising your left elbow over your shoulder for 3 weeks. No driving for 3 weeks. Wear your sling at night only for 3 weeks. New prescriptions: Minocycline 100 mg by mouth every morning and evening. *Pain Management/Treatment: Over the counter pain medication if needed. *Wound Care: Keep site clean and dry. No tub baths or swimming for 1 week. You may shower. Additional Instructions: Will need CBC, CMP in one week at PCP appt. Hold Plavix pending thyroid biopsy *Expected Signs/Symptoms: Bruising and tenderness at the site. *Notify Physician if: Site is bleeding, abnormal drainage, increased pain or fever of 101.5 or more. *During Business Hours Contact: Call Dr. Clark's office at [phone]. *After Business Hours Contact: Please call [phone] and have the work car operator page the physician. *Pending Lab/Results: Follow up w/Provider - Referrals/Follow Up *Referrals/Follow Up: Doni Baltazar MD [Primary Care Provider] - 11/26/17 2:00 pm (check in time at 1:45 apt. at 2:00) - Patient Handouts Patient Handouts: [facility] Pacemaker Implantation, Pacemaker (DC) - Dismissal Complete Discharge Instructions are:: Complete Physician Narrative - Narrative Physician: Guillermo Rader MD Attestation Narrative: Date: 11/18/17 Time: 1258 Patient discharge prior to my evaluation. Discussed case with my WEB CONTENT EDITOR. Medically stable for discharge to home.
== END 2017-11-18 12:00 | disposition home or self-care (01) | DRG 242 ==
LOC: ED 11:26 → EDHOLD 11:26 → SUATTDRO 14:20 → EDHOLD 15:05 → MED 15:15 → CCU 17:11 → SRG 11-17 14:09
PROVIDERS: ADMIT Internal Medicine; ATTEND Hospitalist